=== PATIENT | male | born 1965 | race Caucasian/White ===

== ENCOUNTER → 2016-08-26 | Outpatient (CLI) | payer OTHER ==
--- NOTE | 2016-08-26 13:35 | CT ---
EXAMINATION TYPE: CT wrist RT wo con DATE OF EXAM: 08/26/2016 1:19 PM COMPARISON: NONE HISTORY: Rt wrist pain and fracture TECHNIQUE: Helical acquisition through the right wrist was performed. The data was reformatted in axi al, coronal and sagittal projections. Three-dimensional volume rendered imaging was also performed a CT scanner. CT DLP: 79.2 mGycm Automated exposure control for dose reduction was used. FINDINGS: There is mild pseudocystic change at the base of the first metacarpal. No definite Renal stone protocol performed the same yes There is a mild ulnar minus variant. The scapholunate distance is somewhat widened measuring 3.3 mm. No discrete fracture is seen. IMPRESSION: 1. NO DEFINITE ACUTE OSSEOUS LESION. 2. MILD DEGENERATIVE CHANGE. 3. MILD ULNAR MINUS VARIANT. 4. POSSIBLE RUPTURE OF THE SCAPHOLUNATE LIGAMENT. AN MRI OF THE WRIST WOULD BE SUGGESTED.
== END | disposition home or self-care (01) ==
LOC: RADCTMAIN 11:58
PROVIDERS: ATTEND Orthopaedic Surgery
DX: M19.031 Primary osteoarthritis, right wrist (principal)

== ENCOUNTER 2019-11-10 13:43 | Inpatient (IN) | payer OTHER ==
[2019-11-10] MEDS ORDERED: HEPARIN SODIUM,PORCINE 5,000 UNIT/ML 1 ML VIAL IV PRN (13:56)
[2019-11-10] MEDS ORDERED: IPRATROPIUM-ALBUTEROL 3 ML NEB INHALATION PRN (13:57)
[2019-11-10] MEDS ORDERED: HYDROmorphone 1 MG/ML 1 ML SYRINGE IVP STA (14:01)
--- NOTE | 2019-11-10 14:07 | ED ---
General Adult HPI - General Chief complaint: Shortness of Breath Stated complaint: copd renal failure Time Seen by Provider: 11/10/19 13:54 Source: patient, EMS, RN notes reviewed, old records reviewed Mode of arrival: EMS Limitations: physical limitation - History of Present Illness Initial comments: 54-year-old male presents as transfer from outside facility. Patient has history of CHF, COPD he is on 2 L of oxygen at home. He presented to the emergency department at an outside facility this morning with chief complaint of dyspnea. He states this has been ongoing for at least one month. His workup at that institution revealed that he was in acute renal failure and had an elevated d-dimer. Given the elevated d-dimer he was sent to this institution for evaluation by VQ scan and to see nephrology. Patient does report lower extremity edema which she states is chronic. Reports a mild cough. No fever. No central chest pain. - Related Data Allergies Allergy/AdvReac Type Severity Reaction Status Date / Time No Known Allergies Allergy Verified 11/10/19 13:55 Review of Systems ROS Statement: Those systems with pertinent positive or pertinent negative responses have been documented in the HPI. ROS Other: All systems not noted in ROS Statement are negative. Past Medical History Past Medical History: Heart Failure, COPD, Hypertension Additional Past Medical History / Comment(s): SHERIDAN, History of Any Multi-Drug Resistant Organisms: None Reported Additional Past Surgical History / Comment(s): left testicle growth removal, Past Psychological History: Anxiety Smoking Status: Former smoker Past Alcohol Use History: None Reported Past Drug Use History: None Reported General Exam Limitations: physical limitation General appearance: alert, in distress (Mild respiratory distress) Head exam: Present: atraumatic, normocephalic Eye exam: Present: normal appearance, PERRL ENT exam: Present: normal exam Neck exam: Present: normal inspection, full ROM Respiratory exam: Present: respiratory distress (mild ), wheezes, decreased breath sounds Cardiovascular Exam: Present: normal rhythm, tachycardia GI/Abdominal exam: Present: soft, distended. Absent: tenderness, guarding Extremities exam: Present: pedal edema (1+) Neurological exam: Present: alert, oriented X3 Psychiatric exam: Present: normal affect, normal mood Skin exam: Present: warm, dry, intact. Absent: cyanosis, diaphoretic Course Vital Signs 11/10/19 13:45 Pulse Rate 121 H Respiratory 24 Rate Blood Pressure 128/61 O2 Sat by Pulse 100 Oximetry Medical Decision Making - Medical Decision Making 54-year-old man transferred for VQ scan in evaluation of acute on chronic kidney injury. Patient's workup at outside facility included chest x-ray which was reported as negative without any acute cardiopulmonary abnormality. Patient had an nondetectable BNP. A venous pH is 7.3. He had normal electrolytes, sodium 139, potassium 5.1 magnesium 1.9. He had a creatinine of 3.8 with a reported baseline of 1.5. Patient's lactic acid was 1.5. Troponin was negative. He was initiated on heparin secondary to dyspnea with an elevated d-dimer of 0.7 to centimeters this institution for VQ scan. Additional laboratory studies were reviewed, right blood cell count was 11.6, hemoglobin 11.6, normal platelets at 258. Laboratory studies will be repeated in the emergency department. V/Q scan has been ordered. He will be continued on heparin. He will be admitted for treatment of dyspnea including COPD and rule out pulmonary embolism. Case is discussed with Dr. Kumar, he'll accept admission. Disposition Clinical Impression: Acute exacerbation of chronic obstructive pulmonary disease, SHERIDAN (acute kidney injury) Disposition: ADMITTED IP TO THIS HOSP Condition: Stable Is patient prescribed a controlled substance at d/c from ED?: No Referrals: Colton Garner MD [Primary Care Provider] - 1-2 days Decision to Admit Reason: Admit from EC Decision Date: 11/10/19 Decision Time: 14:07
[2019-11-10] MEDS: HEPARIN SOD,PORK IN 0.45% NACL 25,000 UNIT in 0.45% NACL 1 250ML.BAG IV SCH (14:11)
[2019-11-10 14:18] LABS: Basophils # (A) 0.1 k/uL (0-0.2); Basophils % (A) 1 %; Eosinophils # (A) 0.5 k/uL (0-0.7); Eosinophils % (A) 5 %; HCT 34.1 % (39.0-53.0); HGB 11.3 gm/dL (13.0-17.5); Lymphocytes # (A) 2.2 k/uL (1.0-4.8); Lymphocytes % (A) 24 %; MCHC 33.2 g/dL (31.0-37.0); MCV 99.5 fL (80.0-100.0); Mean Platelet Volume 7.1; Monocytes # (A) 0.6 k/uL (0-1.0); Monocytes % (A) 6 %; Neutrophils # (A) 5.6 k/uL (1.3-7.7); Neutrophils % (A) 60 %; Platelet Count 260 k/uL (150-450); RBC 3.42 m/uL (4.30-5.90); RDW 13.6 % (11.5-15.5); WBC 9.3 k/uL (3.8-10.6)
[2019-11-10 14:24] LABS: Albumin 3.6 g/dL (3.5-5.0); Calcium 8.4 mg/dL (8.4-10.2); Potassium 4.9 mmol/L (3.5-5.1); Total Bilirubin 0.6 mg/dL (0.2-1.3); Total Protein 6.1 g/dL (6.3-8.2)
[2019-11-10] MEDS: SODIUM CHLORIDE 0.9% 1,000 ML IV SCH (15:02)
[2019-11-10 15:33] LABS: C Reactive Protein 37.5 mg/L (<10.0)
[2019-11-10] MEDS: IPRATROPIUM-ALBUTEROL 3 ML NEB INHALATION SCH ×2 (16:46→20:23)
[2019-11-10 17:28] LABS: Glucose,Whole Blood 137 mg/dL (75-99)
--- NOTE | 2019-11-10 18:23 | US ---
EXAMINATION TYPE: US venous doppler duplex LE DATE OF EXAM: 11/10/2019 5:55 PM COMPARISON: NONE CLINICAL HISTORY: Rule out DVT. PE, SOB SIDE PERFORMED: Bilateral TECHNIQUE: The lower extremity deep venous system is examined utilizing real time linear array sonog jessy with graded compression, doppler sonography and color-flow sonography. VESSELS IMAGED: External Iliac Vein (EIV) Common Femoral Vein Deep Femoral Vein Greater Saphenous Vein * Femoral Vein Popliteal Vein Small Saphenous Vein * Proximal Calf Veins (* superficial vessels) Right Leg: No evidence of DVT Left Leg: No evidence of DVT IMPRESSION: 1. Bilateral lower extremity ultrasound negative for deep venous thrombosis.
[2019-11-10] MEDS: FAMOTIDINE 20 MG TAB PO SCH (18:34)
[2019-11-10] MEDS: ERYTHROMYCIN 5 MG/GM OPHTH OINT 3.5 GM TUBE BOTH EYES SCH ×2 (18:35→23:18)
[2019-11-10] MEDS: methylPREDNISolone SOD SUCCI 125 MG/2 ML VIAL IV SCH ×2 (18:35→23:18)
[2019-11-10 20:26] LABS: Glucose,Whole Blood 115 mg/dL (75-99)
[2019-11-10] MEDS: ALBUTEROL HFA INHALER INHALATION SCH (20:32)
--- NOTE | 2019-11-10 21:56 | P.HPIM ---
History of Present Illness This is a pleasant 54 years old male with past medical history of heart failure, COPD, hypertension status post left testicular removal. He presents because of dyspnea to [facility] but wasn't markedly hypoxic, also he has history of sleep apnea and is scheduled to undergo a sleep study, pt states he came to [facility] because he was dyspneic but could not say for how long. Patient denies coughing or phlegm, he denies chest pain, he felt anxious and took anxiety pill after that he vomited little amount after taking the pill, he quit smoking about one month and half ago he denies alcohol or illicit drugs he says he has history of memory problem for 4-5 years and he started recently following up with neurologist Dr. García Patient states she uses NSAIDs for chronic back pain and neck pain Patient is tachycardic with heart rate 117-121, saturating 99% on 2 L. He is afebrile [facility] his creatinine was 3.8 with baseline 1.5-1.9, d-dimer was elevated 0.7 with the reference up to 0.5, pH was slightly low at 7.3, normal lactic acid and mildly elevated doubly BC at 11, chest x-ray showed no infiltrate Repeat labs here showing WBC back to normal at 9.3, hemoglobin 11.3, sodium 137, creatinine 3.3, ALT 57 slightly elevated, AST is normal, bilirubin is normal, Arciniega virus not detected In the emergency room patient was started on normal saline at 50 mL/h, salmeterol 60 mg, heparin drip. Review of Systems CONSTITUTIONAL: No fever, no malaise, no fatigue. HEENT: No recent visual problems or hearing problems. Denied any sore throat. CARDIOVASCULAR: No orthopnea, PND, no palpitations, no syncope. PULMONARY: No shortness of breath, no cough, no hemoptysis. GASTROINTESTINAL: No diarrhea, no nausea, no vomiting, no abdominal pain. Normoactive bowel sounds. NEUROLOGICAL: No headaches, no weakness, no numbness. HEMATOLOGICAL: Denies any bleeding or petechiae. GENITOURINARY: Denies any burning micturition, frequency, or urgency. MUSCULOSKELETAL/RHEUMATOLOGICAL: Denies any joint pain, swelling, or any muscle pain. ENDOCRINE: Denies any polyuria or polydipsia. Past Medical History Past Medical History: Heart Failure, COPD, Hypertension Additional Past Medical History / Comment(s): SHERIDAN, History of Any Multi-Drug Resistant Organisms: None Reported Additional Past Surgical History / Comment(s): left testicle growth removal, Past Psychological History: Anxiety Smoking Status: Former smoker Past Alcohol Use History: None Reported Past Drug Use History: None Reported - Past Family History Father History Unknown: Yes Mother History Unknown: Yes Medications and Allergies Home Medications Medication Instructions Recorded Confirmed Type Albuterol Inhaler [Ventolin Hfa 2 puff INHALATION RT-QID PRN 11/10/19 11/10/19 History Inhaler] Albuterol Nebulized [Ventolin 1.25 mg INHALATION RT-QID 11/10/19 11/10/19 History Nebulized] Cetirizine HCl [Zyrtec] 10 mg PO DAILY 11/10/19 11/10/19 History Doxycycline Monohydrate [Monodox] 100 mg PO AC-BID@0900,1800 11/10/19 11/10/19 History Fluticasone Nasal [place] [Flonase 1 spray EA NOSTRIL DAILY 11/10/19 11/10/19 History Nasal [place]] Fluticasone/Salmeterol [Advair 2 puff INHALATION RT-DAILY 11/10/19 11/10/19 History 250-50 Diskus] Furosemide [Lasix] 40 mg PO DAILY 11/10/19 11/10/19 History HYDROcodone/APAP 7.5-325MG [[place] 1 tab PO QID 11/10/19 11/10/19 History 7.5-325] Ipratropium-Albuterol Nebulize 3 ml INHALATION RT-QID 11/10/19 11/10/19 History [Duoneb 0.5 mg-3 mg/3 ml Soln] Levothyroxine Sodium 88 mcg PO DAILY 11/10/19 11/10/19 History Lisinopril 20 mg PO DAILY 11/10/19 11/10/19 History Magnesium Oxide 400 mg PO DAILY 11/10/19 11/10/19 History Nicotine 7Mg/24Hr Patch [Habitrol 1 patch TRANSDERM DAILY@1700 11/10/19 11/10/19 History 7Mg/24Hr Patch] Pantoprazole [Protonix] 40 mg PO DAILY 11/10/19 11/10/19 History Potassium Chloride ER [K-Dur 10] 10 meq PO DAILY 11/10/19 11/10/19 History Spironolactone 50 mg PO DAILY 11/10/19 11/10/19 History Vitamin D3 50,000iu 50,000 unit PO FR 11/10/19 11/10/19 History clonazePAM [KlonoPIN] 1 mg PO BID 11/10/19 11/10/19 History traZODone HCL 50 mg PO HS 11/10/19 11/10/19 History Allergies Allergy/AdvReac Type Severity Reaction Status Date / Time No Known Allergies Allergy Verified 11/10/19 16:09 Physical Exam Vitals: Vital Signs Temp Pulse Resp BP Pulse Ox 11/10/19 14:56 121 H 22 108/63 99 11/10/19 13:45 98.9 F 121 H 24 128/61 100 Intake and Output 11/10/19 11/10/19 11/10/19 06:59 14:59 22:59 Output Total 150 Balance -150 Output: Urine 150 Other: Weight 113.398 kg -GENERAL: The patient is alert and oriented x3, not in mild acute respiratory distress. Well developed, well nourished. HEENT: Pupils are round and equally reacting to light. EOMI. No scleral icterus. No conjunctival pallor. Normocephalic, atraumatic. No pharyngeal erythema. No thyromegaly. CARDIOVASCULAR: S1 and S2 present. No murmurs, rubs, or gallops. -PULMONARY: Patient is tachypneic, Chest is clear to auscultation, mild scattered bilateral wheezing ABDOMEN: Soft, nontender, nondistended, normoactive bowel sounds. No palpable organomegaly. MUSCULOSKELETAL: No joint swelling or deformity. EXTREMITIES: No cyanosis, clubbing, or pedal edema. NEUROLOGICAL: Gross neurological examination did not reveal any focal deficits. SKIN: No rashes. No petechiae Results CBC & Chem 7: 11/10/19 14:01 11/10/19 14:01 Labs: Abnormal Lab Results - Last 24 Hours (Table) 11/10/19 11/10/19 Range/Units 14:01 14:01 RBC 3.42 L (4.30-5.90) m/uL Hgb 11.3 L (13.0-17.5) gm/dL Hct 34.1 L (39.0-53.0) % Chloride 108 H (98-107) mmol/L BUN 56 H (9-20) mg/dL Creatinine 3.36 H (0.66-1.25) mg/dL Glucose 103 H (74-99) mg/dL ALT 57 H (4-49) U/L Total Protein 6.1 L (6.3-8.2) g/dL Assessment and Plan Assessment: Acute dyspnea with elevated inflammatory markers LDH, C-reactive protein. Rule out covid-19 mild Acute COPD exacerbation, elevated d-dimer, rule out PE and DVT Acute kidney injury on chronic kidney disease Chronic kidney disease stage III Possible elements of sleep apnea, recommend sleep study as an outpatient Chronic back pain and neck pain Hypertension History of left testicular removal Plan: This is a pleasant 54 years old male who presents with COPD exacerbation, Coronavirus not detected. However elevated CRP and LDH make a still possibility, Rule out PE for elevated d-dimer, But could be also part of bilateral infection. And acute kidney injury. Continue with steroids, bronchodilator, oxygen as needed. Continue with heparin drip and check Doppler of the lower extremity and VQ scan. Pulmonary and nephrology consult. Continue with normal saline and check bladder scan Check check lactic acid, Procalcitonin. consult infectious disease. Labs and medication were reviewed.. Continue same treatment. Continue with symptomatic treatment. Resume home medication. Monitor lytes and vitals. DVT and GI prophylaxis. Further recommendations of the clinical course of the patient DVT prophylaxis: heparin GI Prophylaxis: Pepcid Prognosis is guarded
[2019-11-11] MEDS: ALBUTEROL HFA INHALER INHALATION PRN ×4 (01:07→23:16)
[2019-11-11 04:15] LABS: Appearance,Urine Clear (Clear); Bilirubin,Urine Negative (Negative); Blood,Urine Negative (Negative); Color,Urine Light Yellow; Glucose,Urine (UA) Negative (Negative); Ketones,Urine Negative (Negative); Leukocyte Esterase,Urine Negative (Negative); Nitrite,Urine Negative (Negative); PH, Urine 5.5 (5.0-8.0); Protein,Urine Negative (Negative); Specific Gravity,Urine 1.016 (1.001-1.035); Urobilinogen,Urine <2.0 mg/dL (<2.0)
[2019-11-11] MEDS: methylPREDNISolone SOD SUCCI 125 MG/2 ML VIAL IV SCH ×4 (05:15→22:47)
[2019-11-11] MEDS: HEPARIN SOD,PORK IN 0.45% NACL 25,000 UNIT in 0.45% NACL 1 250ML.BAG IV SCH (05:16)
[2019-11-11] MEDS: ERYTHROMYCIN 5 MG/GM OPHTH OINT 3.5 GM TUBE BOTH EYES SCH ×4 (05:16→22:48)
[2019-11-11 06:15] LABS: Glucose,Whole Blood 163 mg/dL (75-99)
[2019-11-11 06:26] LABS: Basophils % (A) 1 %; Eosinophils % (A) 0 %; HCT 36.6 % (39.0-53.0); HGB 12.1 gm/dL (13.0-17.5); Lymphocytes # (A) 0.9 k/uL (1.0-4.8); Lymphocytes % (A) 10 %; MCH 32.9 pg (25.0-35.0); MCHC 33.1 g/dL (31.0-37.0); MCV 99.6 fL (80.0-100.0); Mean Platelet Volume 7.4; Monocytes # (A) 0.2 k/uL (0-1.0); Monocytes % (A) 3 %; Neutrophils # (A) 7.6 k/uL (1.3-7.7); Neutrophils % (A) 86 %; Platelet Count 288 k/uL (150-450); RBC 3.67 m/uL (4.30-5.90); RDW 13.4 % (11.5-15.5); WBC 8.9 k/uL (3.8-10.6)
[2019-11-11] MEDS: TIOTROPIUM 18 MCG/PUFF INHALER INHALATION SCH (07:18)
[2019-11-11] MEDS: ALBUTEROL HFA INHALER INHALATION SCH ×3 (07:18→20:41)
[2019-11-11] MEDS: INSULIN ASPART (NovoLOG) 100 UNIT/ML VIAL SQ SCH ×4 (07:41→22:11)
[2019-11-11] MEDS: LEVOTHYROXINE 88 MCG TAB PO SCH (08:26)
[2019-11-11] MEDS: FAMOTIDINE 20 MG TAB PO SCH (08:26)
--- NOTE | 2019-11-11 08:40 | XR ---
EXAMINATION TYPE: XR chest 1V portable DATE OF EXAM: 11/11/2019 COMPARISON: 11/10/2019 HISTORY: Follow-up for pneumonia. TECHNIQUE: Single frontal view of the chest is obtained. FINDINGS: There is no focal air space opacity, pleural effusion, or pneumothorax seen. The cardiac silhouette size is upper limits of normal in size. Slight eventration of the right hemidiaphragm is u nchanged. The osseous structures are intact. IMPRESSION: No acute cardiopulmonary process.
--- NOTE | 2019-11-11 09:48 | NM ---
EXAMINATION TYPE: NM pul vent and perfuse DATE OF EXAM: 11/11/2019 COMPARISON: Chest x-ray of the same date HISTORY: Elevated d-dimer. Pneumonia. TECHNIQUE: Utilizing inhalation of 63.4 mCi Tc 99m DTPA aerosol and intravenous injection of 4.8 mCi of Tc 99m MAA, ventilation and perfusion images are acquired post injection in multiple projections. FINDINGS: There is relative hypoventilation hypoperfusion of the lung bases with large segmental matched defect s. Matched defect is also seen in the posterior right upper lobe and right lower lobe. There is great er perfusion and ventilation on the oblique images of the right lung. Matched defects of the left upp er lobe and left lower lobe are also seen at a relatively large. Central radiotracer clumping is seen on the ventilation portion of the examination. IMPRESSION: Intermediate probability for pulmonary embolism. Numerous matched defects throughout the lungs however no mismatch defect is seen. There is also central radiotracer clumping in the ventilati on portion of examination indicating a component of bronchial airway disease.
[2019-11-11 09:59] LABS: Calcium 9.4 mg/dL (8.4-10.2); Magnesium 2.3 mg/dL (1.6-2.3)
[2019-11-11 10:08] LABS: Potassium 6.2 mmol/L (3.5-5.1)
[2019-11-11] MEDS ORDERED: DEXTROSE 50% SYRINGE 50 ML IVP ONE (10:20)
[2019-11-11] MEDS ORDERED: INSULIN REGULAR 100 UNIT/ML VIAL IV ONE (10:20)
--- NOTE | 2019-11-11 10:29 | P.NPCON ---
History of Present Illness - Reason for Consult acute renal failure - History of Present Illness Reason for consultation: Acute kidney injury History of present illness: Patient is a 54-year-old male seen in renal consultation for acute kidney injury. Unknown as to what his baseline renal function is. Patient denies any personal history of kidney disease. Patient presented to [facility] shortness of breath and lower extremity edema. Patient states the edema is chronic in nature but is definitely worse than his baseline. He was taking Aldactone and lisinopril both of which are currently held. Additionally he was also on potassium supplementation. No history of diabetes. He has been voiding. No hematuria or dysuria. No vomiting or diarrhea. No significant acidosis. Creatinine was 3.3 on admission and is down to 2.0 today. He is currently receiving IV fluids to normal saline running at 40 mL an hour. He is currently maintained on heparin drip. He went for a VQ scan this morning. No evidence of DVT. Denies family history of renal disease. No fever. Does admit to a nonproductive cough. Vital signs are stable. General: The patient appeared well nourished and normally developed. HEENT: Head exam is unremarkable. Neck is without jugular venous distension. LUNGS: Lungs are clear to auscultation and percussion. Breath sounds decreased. HEART: Rate and Rhythm are regular. ABDOMEN: No distention noted. EXTREMITITES: 2+ edema. Past Medical History Past Medical History: Heart Failure, COPD, Hypertension Additional Past Medical History / Comment(s): SHERIDAN, History of Any Multi-Drug Resistant Organisms: None Reported Additional Past Surgical History / Comment(s): left testicle growth removal, Past Psychological History: Anxiety Smoking Status: Former smoker Past Alcohol Use History: None Reported Past Drug Use History: None Reported - Past Family History Father History Unknown: Yes Mother History Unknown: Yes Medications and Allergies Home Medications Medication Instructions Recorded Confirmed Type Albuterol Inhaler [Ventolin Hfa 2 puff INHALATION RT-QID PRN 11/10/19 11/10/19 History Inhaler] Albuterol Nebulized [Ventolin 1.25 mg INHALATION RT-QID 11/10/19 11/10/19 History Nebulized] Cetirizine HCl [Zyrtec] 10 mg PO DAILY 11/10/19 11/10/19 History Doxycycline Monohydrate [Monodox] 100 mg PO AC-BID@0900,1800 11/10/19 11/10/19 History Fluticasone Nasal [place] [Flonase 1 spray EA NOSTRIL DAILY 11/10/19 11/10/19 History Nasal [place]] Fluticasone/Salmeterol [Advair 2 puff INHALATION RT-DAILY 11/10/19 11/10/19 History 250-50 Diskus] Furosemide [Lasix] 40 mg PO DAILY 11/10/19 11/10/19 History HYDROcodone/APAP 7.5-325MG [[place] 1 tab PO QID 11/10/19 11/10/19 History 7.5-325] Ipratropium-Albuterol Nebulize 3 ml INHALATION RT-QID 11/10/19 11/10/19 History [Duoneb 0.5 mg-3 mg/3 ml Soln] Levothyroxine Sodium 88 mcg PO DAILY 11/10/19 11/10/19 History Lisinopril 20 mg PO DAILY 11/10/19 11/10/19 History Magnesium Oxide 400 mg PO DAILY 11/10/19 11/10/19 History Nicotine 7Mg/24Hr Patch [Habitrol 1 patch TRANSDERM DAILY@1700 11/10/19 11/10/19 History 7Mg/24Hr Patch] Pantoprazole [Protonix] 40 mg PO DAILY 11/10/19 11/10/19 History Potassium Chloride ER [K-Dur 10] 10 meq PO DAILY 11/10/19 11/10/19 History Spironolactone 50 mg PO DAILY 11/10/19 11/10/19 History Vitamin D3 50,000iu 50,000 unit PO FR 11/10/19 11/10/19 History clonazePAM [KlonoPIN] 1 mg PO BID 11/10/19 11/10/19 History traZODone HCL 50 mg PO HS 11/10/19 11/10/19 History Allergies Allergy/AdvReac Type Severity Reaction Status Date / Time No Known Allergies Allergy Verified 11/10/19 16:09 Physical Exam Vitals: Vital Signs Temp Pulse Pulse Resp BP BP Pulse Ox 11/11/19 08:00 98.1 F 118 H 18 134/78 97 11/11/19 04:00 98 F 113 H 22 127/84 98 11/10/19 23:41 98.6 F 113 H 21 134/85 95 11/10/19 20:00 98.8 F 118 H 21 112/70 99 11/10/19 16:46 118 H 98 11/10/19 15:50 98.5 F 120 H 26 H 107/56 97 11/10/19 15:06 117 H 20 11/10/19 14:56 121 H 22 108/63 99 11/10/19 13:45 98.9 F 121 H 24 128/61 100 Intake and Output 11/10/19 11/11/19 11/11/19 22:59 06:59 14:59 Intake Total 330.493 171.064 Output Total 400 825 Balance -69.507 -653.936 Intake: Intake, IV Titration 90.493 171.064 Amount Heparin Sod,Pork in 0.45% 90.493 171.064 NaCl 25,000 unit In 0.45 % NaCl 1 250ml.bag @ 18 UNITS/KG/HR 20.412 mls/hr IV .[id number] [facility] Rx#: [id number] Oral 240 Output: Urine 400 825 Other: Voiding Method Urinal Urinal Weight 111.7 kg 112.5 kg Results - Lab Results Most recent lab results Calcium 9.4 mg/dL (8.4-10.2) 11/11/19 05:40 Magnesium 2.3 mg/dL (1.6-2.3) 11/11/19 05:40 11/11/19 05:40 11/11/19 05:40 Assessment and Plan Plan: Assessment: 1. Acute kidney injury mostly prerenal improving with IV hydration. Creatinine was 3.36 on admission and is 2.0 today. UA benign. 2. Hyperkalemia secondary to acute kidney injury and further worsened with the use of potassium supplementation, lisinopril and Aldactone. 3. Volume overload. Plan: Start Lasix 40 mg IV twice daily. Check bladder scan to rule out urinary retention. Check renal ultrasound. 10 units of IV insulin with an amp of D50 now. Repeat potassium level in 3-4 hours. Continue to monitor renal function and urine output. Thank you for the consultation. I will continue to follow the patient with you during his hospital stay
[2019-11-11] MEDS ORDERED: IPRATROPIUM-ALBUTEROL 3 ML NEB INHALATION PRN (10:55)
[2019-11-11] MEDS ORDERED: DOXYCYCLINE 100 MG CAP PO SCH (11:00)
--- NOTE | 2019-11-11 11:53 | P.CNPUL ---
History of Present Illness Consult date: 11/11/19 Requesting physician: Guanako Kumar Reason for consult: dyspnea Chief complaint: Shortness of breath, cough, congestion History of present illness: This is a very pleasant 54-year-old gentleman who follows with Isabella velazquez PCP. He resides in the [place] area. He has a history of anxiety, hypertension, hypothyroidism, chronic pain syndrome, irritable bowel syndrome, obesity. He also has a history of chronic tobacco dependence and chronic obstructive pulmonary disease and was seen in August [address] Shields at the [place] [facility]. He has an FEV1 value 40% of predicted. He presented here to the hospital yesterday as a transfer from [facility] with complai nts of worsening shortness of breath. He is also found to have acute renal failure. He had elevated d-dimer. VQ scan done here revealed in determinant findings. He does have some chronic lower extremity edema. Dopplers were negative for DVT. Chest x-ray revealed no acute pulmonary process. He is seen today in consultation on the selective care unit. He is currently awake and alert in no acute distress. He states he quit smoking on September 14 of this year. He does have a nebulizer at home. He is also maintained on Advair. Presently he sitting up in bed. Awake and alert in no acute distress. He is maintaining O2 saturations in the upper 90s on 3 L/m per nasal cannula. He is afebrile. Slightly tachycardic. Currently on a heparin drip. White count 8.9. Hemoglobin 12.1. Sodium 138. Potassium 6.2. Chloride 109. Creatinine 2.00. Urinalysis clear. He is currently on bronchodilators, Solu-Medrol. Review of Systems REVIEW OF SYSTEMS: CONSTITUTIONAL: Denies any recent significant weight loss or weight gain. EYES: Denies change in vision. EARS, NOSE, MOUTH, THROAT: Denies headaches, denies sore throat. CARDIOVASCULAR: Denies chest pain, palpitations or syncopal episodes. RESPIRATORY: Positive for shortness of breath, cough, congestion no hemoptysis. GASTROINTESTINAL: Denies change in appetite, denies abdominal pain GENITOURINARY: Denies hematuria, denies infections. MUSKULOSKELETAL: Denies pain, denies swelling. INTEGUMENTARY: Denies rash, denies eczema. NEUROLOGICAL: Denies recent memory loss, no recent seizure activity. PSYCHIATRIC: Denies anxiety, denies depression. HEMATOLOGIC/LYMPHATIC: Denies anemia, denies enlarged lymph nodes. Past Medical History Past Medical History: Heart Failure, COPD, Hypertension Additional Past Medical History / Comment(s): SHERIDAN, History of Any Multi-Drug Resistant Organisms: None Reported Additional Past Surgical History / Comment(s): left testicle growth removal, Past Psychological History: Anxiety Smoking Status: Former smoker Past Alcohol Use History: None Reported Past Drug Use History: None Reported - Past Family History Father History Unknown: Yes Mother History Unknown: Yes Medications and Allergies Home Medications Medication Instructions Recorded Confirmed Type Albuterol Inhaler [Ventolin Hfa 2 puff INHALATION RT-QID PRN 11/10/19 11/10/19 History Inhaler] Albuterol Nebulized [Ventolin 1.25 mg INHALATION RT-QID 11/10/19 11/10/19 History Nebulized] Cetirizine HCl [Zyrtec] 10 mg PO DAILY 11/10/19 11/10/19 History Doxycycline Monohydrate [Monodox] 100 mg PO AC-BID@0900,1800 11/10/19 11/10/19 History Fluticasone Nasal [place] [Flonase 1 spray EA NOSTRIL DAILY 11/10/19 11/10/19 History Nasal [place]] Fluticasone/Salmeterol [Advair 2 puff INHALATION RT-DAILY 11/10/19 11/10/19 History 250-50 Diskus] Furosemide [Lasix] 40 mg PO DAILY 11/10/19 11/10/19 History HYDROcodone/APAP 7.5-325MG [[place] 1 tab PO QID 11/10/19 11/10/19 History 7.5-325] Ipratropium-Albuterol Nebulize 3 ml INHALATION RT-QID 11/10/19 11/10/19 History [Duoneb 0.5 mg-3 mg/3 ml Soln] Levothyroxine Sodium 88 mcg PO DAILY 11/10/19 11/10/19 History Lisinopril 20 mg PO DAILY 11/10/19 11/10/19 History Magnesium Oxide 400 mg PO DAILY 11/10/19 11/10/19 History Nicotine 7Mg/24Hr Patch [Habitrol 1 patch TRANSDERM DAILY@1700 11/10/19 11/10/19 History 7Mg/24Hr Patch] Pantoprazole [Protonix] 40 mg PO DAILY 11/10/19 11/10/19 History Potassium Chloride ER [K-Dur 10] 10 meq PO DAILY 11/10/19 11/10/19 History Spironolactone 50 mg PO DAILY 11/10/19 11/10/19 History Vitamin D3 50,000iu 50,000 unit PO FR 11/10/19 11/10/19 History clonazePAM [KlonoPIN] 1 mg PO BID 11/10/19 11/10/19 History traZODone HCL 50 mg PO HS 11/10/19 11/10/19 History Allergies Allergy/AdvReac Type Severity Reaction Status Date / Time No Known Allergies Allergy Verified 11/10/19 16:09 Physical Exam Vitals: Vital Signs Temp Pulse Pulse Resp BP BP Pulse Ox 11/11/19 08:00 98.1 F 118 H 18 134/78 97 11/11/19 04:00 98 F 113 H 22 127/84 98 11/10/19 23:41 98.6 F 113 H 21 134/85 95 11/10/19 20:00 98.8 F 118 H 21 112/70 99 11/10/19 16:46 118 H 98 11/10/19 15:50 98.5 F 120 H 26 H 107/56 97 11/10/19 15:06 117 H 20 11/10/19 14:56 121 H 22 108/63 99 11/10/19 13:45 98.9 F 121 H 24 128/61 100 Intake and Output 11/10/19 11/11/19 11/11/19 22:59 06:59 14:59 Intake Total 330.493 171.064 Output Total 400 825 67 Balance -69.507 -653.936 -67 Intake: Intake, IV Titration 90.493 171.064 Amount Heparin Sod,Pork in 0.45% 90.493 171.064 NaCl 25,000 unit In 0.45 % NaCl 1 250ml.bag @ 18 UNITS/KG/HR 20.412 mls/hr IV .[id number] [facility] Rx#: [id number] Oral 240 Output: Urine 400 825 Post Void Residual 67 Other: Voiding Method Urinal Urinal Weight 111.7 kg 112.5 kg GENERAL EXAM: Alert, pleasant 54-year-old gentleman, on 3 L nasal cannula, comfortable in no apparent distress. HEAD: Normocephalic. EYES: Normal reaction of pupils, equal size. NOSE: Clear with pink turbinates. THROAT: No erythema or exudates. NECK: No masses, no JVD. CHEST: No chest wall deformity. LUNGS: Equal air entry with bilateral end expiratory wheeze, diminished. CVS: S1 and S2 normal with no audible murmur, regular rhythm. ABDOMEN: No hepatosplenomegaly, normal bowel sounds, no guarding or rigidity. SPINE: No scoliosis or deformity SKIN: No rashes CENTRAL NERVOUS SYSTEM: No focal deficits, tone is normal in all 4 extremities. EXTREMITIES: There is 1+ peripheral edema. No clubbing, no cyanosis. Peripheral pulses are intact. Results - Laboratory Findings CBC and BMP: 11/11/19 05:40 11/11/19 05:40 Abnormal lab findings: Abnormal Labs 11/10/19 11/10/19 11/10/19 14:01 14:01 14:01 RBC 3.42 L Hgb 11.3 L Hct 34.1 L Lymphocytes # APTT Potassium Chloride 108 H BUN 56 H Creatinine 3.36 H Glucose 103 H POC Glucose (mg/dL) Plasma Lactic Acid [place] ALT 57 H Lactate Dehydrogenase 1020 H C-Reactive Protein 37.5 H Total Protein 6.1 L 11/10/19 11/10/19 11/10/19 15:50 15:50 17:26 RBC Hgb Hct Lymphocytes # APTT 168.2 H* Potassium Chloride BUN Creatinine Glucose POC Glucose (mg/dL) 137 H Plasma Lactic Acid [place] 2.2 H* ALT Lactate Dehydrogenase C-Reactive Protein Total Protein 11/10/19 11/10/19 11/11/19 20:24 23:16 05:40 RBC 3.67 L Hgb 12.1 L Hct 36.6 L Lymphocytes # 0.9 L APTT 107.8 H* Potassium Chloride BUN Creatinine Glucose POC Glucose (mg/dL) 115 H Plasma Lactic Acid [place] ALT Lactate Dehydrogenase C-Reactive Protein Total Protein 11/11/19 11/11/19 11/11/19 05:40 05:40 06:13 RBC Hgb Hct Lymphocytes # APTT 103.4 H* Potassium 6.2 H* Chloride 109 H BUN 53 H Creatinine 2.00 H Glucose 162 H POC Glucose (mg/dL) 163 H Plasma Lactic Acid [place] ALT Lactate Dehydrogenase C-Reactive Protein Total Protein - Diagnostic Findings Chest x-ray: image reviewed U/S of Legs: image reviewed Assessment and Plan Assessment: 1 Acute hypoxic respiratory failure secondary to an acute exacerbation of chronic obstructive pulmonary disease. FEV1 value 40% of predicted 2 Chronic tobacco dependence recently quit in September 2019. 3 Acute renal failure, suspect prerenal improving with IV hydration 4 Hyperkalemia secondary to above along with potassium sparing diuretics and javier inhibitors 5 Obesity 6 Hypothyroidism 7 History of irritable bowel syndrome 8 History of anxiety/depression 9 Hypertension Plan: The patient was seen and evaluated by Dr. Shields Doubt pulmonary embolism, discontinue IV heparin Initiate Symbicort, Spiriva, albuterol Continue IV Solu-Medrol IV diuretics per nephrology Empiric antibiotics in the form of doxycycline Heparin for DVT prophylaxis Pepcid for GI prophylaxis Titrate down the FiO2 as tolerated Increase his activity as tolerated We will continue to follow and make further recommendations based on his clinical status. I, the cosigning physician, performed a history & physical examination of the patient. Lungs sounds with end expiratory wheeze, diminished. Maintaining good O2 saturations in the 90s on 3 L/m per nasal cannula. I discussed the assessment and plan of care with my nurse practitioner, Марина Biggs. I attest to the above note as dictated by her. Time with Patient: Greater than 30
[2019-11-11 12:03] LABS: Glucose,Whole Blood 157 mg/dL (75-99)
[2019-11-11] MEDS: FUROSEMIDE 10 MG/ML 4 ML VIAL IV SCH ×2 (12:22→19:57)
[2019-11-11] MEDS: SODIUM CHLORIDE 0.9% 1,000 ML IV SCH (12:36)
[2019-11-11] MEDS: PANTOPRAZOLE 40 MG TABLET PO SCH (12:39)
[2019-11-11] MEDS: FLUTICASONE 50MCG/SPRAY NASAL 16GM EA NOSTRIL SCH (12:39)
[2019-11-11] MEDS ORDERED: IPRATROPIUM-ALBUTEROL 3 ML NEB INHALATION SCH (13:00)
[2019-11-11] MEDS: HYDROcodone/APAP 7.5-325MG 1 EACH TAB PO SCH ×3 (15:28→22:46)
--- NOTE | 2019-11-11 15:44 | PN ---
PROGRESS NOTE DATE OF SERVICE: 11/11/2019 This is a 54-year-old gentleman who was admitted with COPD acute exacerbation, acute hypoxic respiratory failure, also had possible acute purulent tracheobronchitis also. The COVID is suspected but is negative. The V/Q scan showed indeterminate possibly with multiple matching defects. The venous Doppler was found to be negative and the patient was started on heparin initially but stopped per Pulmonary recommendations. Patient will be closely monitored. Patient also has hyperkalemia, as well as acute renal failure also. PAST MEDICAL HISTORY: Reviewed. REVIEW OF SYSTEMS: CARDIOVASCULAR: No angina. RESPIRATION: Patient is short of breath. GI: As mentioned earler. : As mentioned earlier. NERVOUS SYSTEM: No numbness or weakness.. CURRENT MEDICATIONS: Reviewed and include: 1. [place] 7.5 q.i.d. p.r.n. 2. Ventolin 2.2 puffs q.i.d. p.r.n. 3. Symbicort 12.5 two puffs b.i.d. 4. Klonopin 1 mg b.i.d. 5. Doxycycline. 6. Erythromycin ointment. 7. Pepcid. 8. Flonase. 9. Lasix 40 mg IV b.i.d. 10.NovoLog scale. 11.Synthroid 18 mcg p.o. daily. 12.Claritin 10 mg p.o. daily. 13.Magnesium oxide. 14.Solu-Medrol 60 IV q.6 h. 15.Habitrol 7 daily. 16.Protonix 40 mg daily. 17.Spiriva 1 puff daily. 18.Desyrel 50 mg q.h.s. PHYSICAL EXAM: Patient is alert, oriented x3. Pulse is 125, blood pressure 142/85, respirations 16, temperature 98.1, pulse ox 98% on 3 L. HEENT: Conjunctivae normal, NECK: No jugular venous distension. RESPIRATION: Breath sounds diminished at the bases, a few scattered rhonchi, no crackles. ABDOMEN: Soft, nontender. No mass palpable. LEGS: No edema, no cyanosis. NERVOUS SYSTEM: No focal deficits. LABS: WBC 8.2, hemoglobin is 12.1, and APTT 103.4, potassium 6.2, creatinine is 2. Chest x- ray personally reviewed. ASSESSMENT: 1. Chronic obstructive pulmonary disease acute exacerbation with acute purulent tracheobronchitis. 2. Bronchitis with acute hypoxic respiratory failure. 3. Suspect COVID-19 test negative. 4. History of nicotine dependence. 5. Acute renal failure. 6. Hyperkalemia, secondary to acute renal failure. 7. Anemia of normocytic anemia, chronic disease. 8. History of congestive heart failure. 9. Hypertension. 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 11.History of left testicular growth removal. 12.History of anxiety. 13.Remote history of nicotine dependence. 14.Obesity with body mass index 38.8. RECOMMENDATION: This is a 54-year-old gentleman who presented with multiple complex medical issues, we will monitor the patient closely, continue with the current management and continue the bronchodilators, antibiotics. I would continue IV steroids otherwise I would also recommend a CT scan of the chest and continue to monitor. I would also recommend baseline testing for D-dimer and a 2D echo. I would also recommend a set of troponin as well. Prognosis guarded because of multiple complex medical issues. Further recommendations to follow. NT proBNP is only 64. LDH and CRP are elevated. MMODL / IJN: [id number] /
--- NOTE | 2019-11-11 16:08 | US ---
EXAMINATION TYPE: US kidneys/renal and bladder DATE OF EXAM: 11/11/2019 COMPARISON: NONE CLINICAL HISTORY: 54 year-old male acute kidney injury. TECHNIQUE: MULTIPLE SONOGRAPHIC IMAGES OF THE KIDNEYS AND BLADDER ARE OBTAINED. FINDINGS: Seismic Survey Assistant notes: Exam limitations due to body habitus. EXAM MEASUREMENTS: Right Kidney: 9.3 x 5.2 x 5.0 cm Left Kidney: 9.6 x 5.5 x 3.7 cm No hydronephrosis on either side. Bladder: Anechoic Bilateral Jets seen: No IMPRESSION: No hydronephrosis.
[2019-11-11 16:47] LABS: Glucose,Whole Blood 164 mg/dL (75-99)
[2019-11-11] MEDS ORDERED: NICOTINE 7MG/24HR PATCH TRANSDERM SCH (17:00)
--- NOTE | 2019-11-11 17:31 | CT ---
EXAMINATION TYPE: CT chest wo con DATE OF EXAM: 11/11/2019 COMPARISON: Radiograph 11/11/2019 HISTORY: 54-year-old male Pneumonia. Difficulty breathing. TECHNIQUE: Contiguous axial scanning of the chest without IV contrast. Coronal and sagittal reconstru ctions performed. CT DLP: 631 mGycm Automated exposure control for dose reduction was used. FINDINGS: The heart is normal size without pericardial effusion. 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 No thoracic lymphadenopathy by CT size criteria. Mild to moderate centrilobular emphysema. Mild diffuse bronchial wall thickening. Mild respiratory mo tion artifact. This limits assessment for small pulmonary nodules. 5 mm right mid lung pulmonary nodule, axial image 32. No consolidation or pleural effusion. Visualized upper abdomen shows no gross abnormality. Bones: No osseous destructive process. IMPRESSION: 1. COPD WITH MILD TO MODERATE EMPHYSEMA. 2. A 5 MM RIGHT MID LUNG PULMONARY NODULE. [address] FOLLOW-UP CT RECOMMENDED TO REASSESS PER THE 2017 [employer] GUIDELINES. 3. OTHERWISE, NO ACUTE PULMONARY PROCESS SEEN.
[2019-11-11] MEDS: clonazePAM 1 MG TAB PO SCH (19:56)
[2019-11-11] MEDS: traZODone HCL 50 MG TAB PO SCH (19:57)
[2019-11-11 20:27] LABS: Glucose,Whole Blood 146 mg/dL (75-99)
[2019-11-11] MEDS: SYMBICORT 160-4.5 MCG INHALER INHALATION SCH (20:41)
--- NOTE | 2019-11-11 22:28 | P.CONS ---
History of Present Illness - Reason for Consult Consult date: 11/11/19 infection Requesting physician: Guanako E Sheet - Chief Complaint shortness of breath x weeks - History of Present Illness Patient is a 54-year male with a past medical history pertinent for hypertension hypothyroidism chronic pain syndrome history of for smoking since the age of 12 who recently quit smoking on September 14 seemed having problem with increasing shortness of breath that has been getting worse over the last month or so patient said he has been seen at the local hospital multiple times for the same symptoms he presented to [place] with increasing shortness of breath patient has shortness of breath with minimal exertion and even at rest patient denies having any chest pain he did have very minimal cough with no sputum production no URI symptoms except some runny nose denies high-grade fever nausea no vomiting no abdominal pain or diarrhea patient was evaluated at the [facility] subsequent has been transferred to [facility] for further management patient on arrival to the hospital has been afebrile patient did have a normal white count noticed to have acute renal failure with a creatinine 3.36 urine was negative: PCR was negative patient did have elevated CRP of 37.5 LDH was 1020 procalcitonin 0.26 with appropriate this infectious disease consultation consult for possible infection and need for antibiotic therapy patient has been started on Rocephin Solu-Medrol and bronchodilator. Review of Systems Positive point has been mentioned in HPI rest of the systems are negative Past Medical History Past Medical History: Heart Failure, COPD, Hypertension Additional Past Medical History / Comment(s): SHERIDAN, History of Any Multi-Drug Resistant Organisms: None Reported Additional Past Surgical History / Comment(s): left testicle growth removal, Past Psychological History: Anxiety Smoking Status: Former smoker Past Alcohol Use History: None Reported Past Drug Use History: None Reported - Past Family History Father History Unknown: Yes Mother History Unknown: Yes Medications and Allergies Home Medications Medication Instructions Recorded Confirmed Type Albuterol Inhaler [Ventolin Hfa 2 puff INHALATION RT-QID PRN 11/10/19 11/10/19 History Inhaler] Albuterol Nebulized [Ventolin 1.25 mg INHALATION RT-QID 11/10/19 11/10/19 History Nebulized] Cetirizine HCl [Zyrtec] 10 mg PO DAILY 11/10/19 11/10/19 History Doxycycline Monohydrate [Monodox] 100 mg PO AC-BID@0900,1800 11/10/19 11/10/19 History Fluticasone Nasal [place] [Flonase 1 spray EA NOSTRIL DAILY 11/10/19 11/10/19 History Nasal [place]] Fluticasone/Salmeterol [Advair 2 puff INHALATION RT-DAILY 11/10/19 11/10/19 History 250-50 Diskus] Furosemide [Lasix] 40 mg PO DAILY 11/10/19 11/10/19 History HYDROcodone/APAP 7.5-325MG [[place] 1 tab PO QID 11/10/19 11/10/19 History 7.5-325] Ipratropium-Albuterol Nebulize 3 ml INHALATION RT-QID 11/10/19 11/10/19 History [Duoneb 0.5 mg-3 mg/3 ml Soln] Levothyroxine Sodium 88 mcg PO DAILY 11/10/19 11/10/19 History Lisinopril 20 mg PO DAILY 11/10/19 11/10/19 History Magnesium Oxide 400 mg PO DAILY 11/10/19 11/10/19 History Nicotine 7Mg/24Hr Patch [Habitrol 1 patch TRANSDERM DAILY@1700 11/10/19 11/10/19 History 7Mg/24Hr Patch] Pantoprazole [Protonix] 40 mg PO DAILY 11/10/19 11/10/19 History Potassium Chloride ER [K-Dur 10] 10 meq PO DAILY 11/10/19 11/10/19 History Spironolactone 50 mg PO DAILY 11/10/19 11/10/19 History Vitamin D3 50,000iu 50,000 unit PO FR 11/10/19 11/10/19 History clonazePAM [KlonoPIN] 1 mg PO BID 11/10/19 11/10/19 History traZODone HCL 50 mg PO HS 11/10/19 11/10/19 History Allergies Allergy/AdvReac Type Severity Reaction Status Date / Time No Known Allergies Allergy Verified 11/10/19 16:09 Physical Exam Vitals: Vital Signs Temp Pulse Pulse Resp BP Pulse Ox 11/11/19 16:00 131 H 24 11/11/19 15:31 98.1 F 131 H 24 122/80 97 11/11/19 12:00 98.1 F 125 H 16 142/85 98 04/27/20 08:00 98.1 F 118 H 18 134/78 97 11/11/19 04:00 98 F 113 H 22 127/84 98 11/10/19 23:41 98.6 F 113 H 21 134/85 95 11/10/19 20:00 98.8 F 118 H 21 112/70 99 11/10/19 16:46 118 H 98 Intake and Output 11/11/19 11/11/19 11/11/19 06:59 14:59 22:59 Intake Total 171.064 Output Total 825 392 900 Balance -653.936 392 900 Intake: Intake, IV Titration 171.064 Amount Heparin Sod,Pork in 0.45% 171.064 NaCl 25,000 unit In 0.45 % NaCl 1 250ml.bag @ 18 UNITS/KG/HR 20.412 mls/hr IV .[id number] [facility] Rx#: [id number] Output: Urine 825 325 900 Post Void Residual 67 Other: Voiding Method Urinal # Voids 3 Weight 112.5 kg GENERAL DESCRIPTION: Middle-aged male lying in bed, no distress. No tachypnea or accessory muscle of respiration use. HEENT: Shows Pallor , no scleral icterus. Oral mucous membrane is dry. NECK: Trachea central, no thyromegaly. LUNGS: Unlabored breathing. Decreased intensity breath sound. No wheeze or crackle. HEART: S1, S2, regular rate and rhythm. ABDOMEN: Soft, no tenderness , guarding or rigidity EXTREMITIES: No edema of feet. SKIN: No rash, no masses palpable. NEUROLOGICAL: The patient is awake, alert, oriented x3, mood and affect normal. Results CBC & Chem 7: 11/11/19 05:40 11/11/19 14:59 Labs: Abnormal Lab Results - Last 24 Hours (Table) 11/10/19 11/10/19 11/10/19 Range/Units 14:01 14:01 17:26 RBC (4.30-5.90) m/uL Hgb (13.0-17.5) gm/dL Hct (39.0-53.0) % Lymphocytes # (1.0-4.8) k/uL APTT (22.0-30.0) sec Potassium (3.5-5.1) mmol/L Chloride (98-107) mmol/L BUN (9-20) mg/dL Creatinine (0.66-1.25) mg/dL Glucose (74-99) mg/dL POC Glucose (mg/dL) 137 H (75-99) mg/dL Ferritin 796.0 H (22.0-322.0) ng/mL Procalcitonin 0.26 H (0.02-0.09) ng/mL 11/10/19 11/10/19 11/11/19 Range/Units 20:24 23:16 05:40 RBC 3.67 L (4.30-5.90) m/uL Hgb 12.1 L (13.0-17.5) gm/dL Hct 36.6 L (39.0-53.0) % Lymphocytes # 0.9 L (1.0-4.8) k/uL APTT 107.8 H* (22.0-30.0) sec Potassium (3.5-5.1) mmol/L Chloride (98-107) mmol/L BUN (9-20) mg/dL Creatinine (0.66-1.25) mg/dL Glucose (74-99) mg/dL POC Glucose (mg/dL) 115 H (75-99) mg/dL Ferritin (22.0-322.0) ng/mL Procalcitonin (0.02-0.09) ng/mL 11/11/19 11/11/19 11/11/19 Range/Units 05:40 05:40 06:13 RBC (4.30-5.90) m/uL Hgb (13.0-17.5) gm/dL Hct (39.0-53.0) % Lymphocytes # (1.0-4.8) k/uL APTT 103.4 H* (22.0-30.0) sec Potassium 6.2 H* (3.5-5.1) mmol/L Chloride 109 H (98-107) mmol/L BUN 53 H (9-20) mg/dL Creatinine 2.00 H (0.66-1.25) mg/dL Glucose 162 H (74-99) mg/dL POC Glucose (mg/dL) 163 H (75-99) mg/dL Ferritin (22.0-322.0) ng/mL Procalcitonin (0.02-0.09) ng/mL 11/11/19 11/11/19 Range/Units 12:02 14:59 RBC (4.30-5.90) m/uL Hgb (13.0-17.5) gm/dL Hct (39.0-53.0) % Lymphocytes # (1.0-4.8) k/uL APTT (22.0-30.0) sec Potassium 5.2 H (3.5-5.1) mmol/L Chloride (98-107) mmol/L BUN (9-20) mg/dL Creatinine (0.66-1.25) mg/dL Glucose (74-99) mg/dL POC Glucose (mg/dL) 157 H (75-99) mg/dL Ferritin (22.0-322.0) ng/mL Procalcitonin (0.02-0.09) ng/mL Assessment and Plan Assessment: Patient presented to hospital with increasing shortness of breath, he also have a cough, and this patient chest x-ray has been negative for acute cardiopulmonary process VQ scan has been intermediate probability of pulmonary embolism lower extremity Doppler has been negative patient did have mild elevated inflammatory markers however no clinical suspicious for pneumonia could have been more likely COPD exacerbation with tracheobronchitis in this patient currently with no evidence of any cellulitis or abdominal focus of infection. (1) Tracheobronchitis Current Visit: Yes Status: Acute Code(s): J40 - BRONCHITIS, NOT SPECIFIED ACUTE OR CHRONIC SNOMED Code(s): 13892774 (2) Elevated C-reactive protein (CRP) Current Visit: Yes Status: Acute Code(s): R79.82 - ELEVATED C-REACTIVE PROTEIN (CRP) SNOMED Code(s): 159091180324203 Plan: 1-we will try to obtain a sputum for Gram stain and culture, blood culture has been obtained those will be followed 2-continue with empiric Rocephin and bronchodilator therapy We will follow on clinical condition and cultures to further adjust medication if needed Thank you for this consultation we will follow the patient along with you Time with Patient: Greater than 30
[2019-11-12] MEDS: ALBUTEROL HFA INHALER INHALATION PRN (03:45)
[2019-11-12 06:10] LABS: Basophils % (A) 0 %; Eosinophils % (A) 0 %; HCT 34.5 % (39.0-53.0); HGB 11.6 gm/dL (13.0-17.5); Lymphocytes # (A) 0.8 k/uL (1.0-4.8); Lymphocytes % (A) 5 %; MCH 33.1 pg (25.0-35.0); MCHC 33.5 g/dL (31.0-37.0); MCV 98.6 fL (80.0-100.0); Mean Platelet Volume 7.1; Monocytes # (A) 0.5 k/uL (0-1.0); Monocytes % (A) 3 %; Neutrophils # (A) 13.8 k/uL (1.3-7.7); Neutrophils % (A) 90 %; Platelet Count 297 k/uL (150-450); RDW 13.5 % (11.5-15.5); WBC 15.3 k/uL (3.8-10.6)
[2019-11-12 06:12] LABS: Glucose,Whole Blood 185 mg/dL (75-99)
[2019-11-12] MEDS: methylPREDNISolone SOD SUCCI 125 MG/2 ML VIAL IV SCH ×4 (06:13→22:50)
[2019-11-12] MEDS: PANTOPRAZOLE 40 MG TABLET PO SCH (06:13)
[2019-11-12] MEDS: INSULIN ASPART (NovoLOG) 100 UNIT/ML VIAL SQ SCH ×4 (06:13→21:19)
[2019-11-12] MEDS: ERYTHROMYCIN 5 MG/GM OPHTH OINT 3.5 GM TUBE BOTH EYES SCH ×4 (06:14→22:50)
[2019-11-12] MEDS: LEVOTHYROXINE 88 MCG TAB PO SCH (06:16)
[2019-11-12 06:25] LABS: C Reactive Protein 25.2 mg/L (<10.0); Calcium 9.8 mg/dL (8.4-10.2); Magnesium 2.3 mg/dL (1.6-2.3); Potassium 5.5 mmol/L (3.5-5.1)
[2019-11-12] MEDS: SYMBICORT 160-4.5 MCG INHALER INHALATION SCH ×2 (06:59→19:23)
[2019-11-12] MEDS: ALBUTEROL HFA INHALER INHALATION SCH ×3 (06:59→19:23)
[2019-11-12] MEDS: TIOTROPIUM 18 MCG/PUFF INHALER INHALATION SCH (06:59)
[2019-11-12] MEDS ORDERED: FLUTICASONE INHALATION SCH (08:00)
[2019-11-12] MEDS ORDERED: SALMETEROL INHALATION SCH (08:00)
--- NOTE | 2019-11-12 08:51 | P.PN ---
Subjective Patient is seen in follow-up for acute kidney injury. Renal function is improving. Creatinine 1.52 today. Edema better since yesterday. Urine output over 3 L in the last 24 hours. No vomiting or diarrhea. Vital signs are stable. General: The patient appeared well nourished and normally developed. HEENT: Head exam is unremarkable. Neck is without jugular venous distension. LUNGS: Lungs are clear to auscultation and percussion. Breath sounds decreased. HEART: Rate and Rhythm are regular. ABDOMEN: No distention noted. Nontender. EXTREMITITES: 2+ edema. Objective - Vital Signs Vital signs: Vital Signs Temp 97.7 F 11/12/19 04:00 Pulse 123 H 11/12/19 04:00 Resp 26 H 11/12/19 04:00 BP 146/82 11/12/19 04:00 Pulse Ox 94 L 11/12/19 04:00 Intake & Output 11/11/19 11/12/19 11/12/19 18:59 06:59 18:59 Intake Total 1410 Output Total 2146 1950 Balance -737 -1949 Weight 109 kg Intake: Intake, IV Titration 50 Amount cefTRIAXone 1 gm In 50 Sodium Chloride 0.9% 50 ml @ 100 mls/hr IVPB Q24HR [facility] Rx#:[id number] Oral 1360 Output: Urine 2079 1949 Post Void Residual 67 Other: Voiding Method Urinal # Voids 3 1 - Labs CBC & Chem 7: 11/12/19 05:31 11/12/19 05:31 Labs: Abnormal Lab Results - Last 24 Hours (Table) 11/10/19 11/10/19 11/11/19 Range/Units 14:01 14:01 05:40 WBC (3.8-10.6) k/uL RBC (4.30-5.90) m/uL Hgb (13.0-17.5) gm/dL Hct (39.0-53.0) % Neutrophils # (1.3-7.7) k/uL Lymphocytes # (1.0-4.8) k/uL Potassium 6.2 H* (3.5-5.1) mmol/L Chloride 109 H (98-107) mmol/L BUN 53 H (9-20) mg/dL Creatinine 2.00 H (0.66-1.25) mg/dL Glucose 162 H (74-99) mg/dL POC Glucose (mg/dL) (75-99) mg/dL Ferritin 796.0 H (22.0-322.0) ng/mL Lactate Dehydrogenase (313-618) U/L C-Reactive Protein (<10.0) mg/L Procalcitonin 0.26 H (0.02-0.09) ng/mL 11/11/19 11/11/19 11/11/19 Range/Units 12:02 14:59 16:46 WBC (3.8-10.6) k/uL RBC (4.30-5.90) m/uL Hgb (13.0-17.5) gm/dL Hct (39.0-53.0) % Neutrophils # (1.3-7.7) k/uL Lymphocytes # (1.0-4.8) k/uL Potassium 5.2 H (3.5-5.1) mmol/L Chloride (98-107) mmol/L BUN (9-20) mg/dL Creatinine (0.66-1.25) mg/dL Glucose (74-99) mg/dL POC Glucose (mg/dL) 157 H 164 H (75-99) mg/dL Ferritin (22.0-322.0) ng/mL Lactate Dehydrogenase (313-618) U/L C-Reactive Protein (<10.0) mg/L Procalcitonin (0.02-0.09) ng/mL 11/11/19 11/12/19 11/12/19 Range/Units 20:25 05:31 05:31 WBC 15.3 H (3.8-10.6) k/uL RBC 3.50 L (4.30-5.90) m/uL Hgb 11.6 L (13.0-17.5) gm/dL Hct 34.5 L (39.0-53.0) % Neutrophils # 13.8 H (1.3-7.7) k/uL Lymphocytes # 0.8 L (1.0-4.8) k/uL Potassium 5.5 H (3.5-5.1) mmol/L Chloride (98-107) mmol/L BUN 55 H (9-20) mg/dL Creatinine 1.52 H (0.66-1.25) mg/dL Glucose 146 H (74-99) mg/dL POC Glucose (mg/dL) 146 H (75-99) mg/dL Ferritin (22.0-322.0) ng/mL Lactate Dehydrogenase 1111 H (313-618) U/L C-Reactive Protein 25.2 H (<10.0) mg/L Procalcitonin (0.02-0.09) ng/mL 11/12/19 Range/Units 06:11 WBC (3.8-10.6) k/uL RBC (4.30-5.90) m/uL Hgb (13.0-17.5) gm/dL Hct (39.0-53.0) % Neutrophils # (1.3-7.7) k/uL Lymphocytes # (1.0-4.8) k/uL Potassium (3.5-5.1) mmol/L Chloride (98-107) mmol/L BUN (9-20) mg/dL Creatinine (0.66-1.25) mg/dL Glucose (74-99) mg/dL POC Glucose (mg/dL) 185 H (75-99) mg/dL Ferritin (22.0-322.0) ng/mL Lactate Dehydrogenase (313-618) U/L C-Reactive Protein (<10.0) mg/L Procalcitonin (0.02-0.09) ng/mL Microbiology - Last 24 Hours (Table) 11/10/19 23:16 Blood Culture - Preliminary Blood No Growth after 24 hours Assessment and Plan Plan: Assessment: 1. Acute kidney injury mostly prerenal improving with IV hydration. Creatinine was 3.36 on admission and is 1.52 today. UA benign. No hydronephrosis noted on kidney ultrasound. No evidence of urinary retention. 2. Hyperkalemia secondary to acute kidney injury and further worsened with the use of potassium supplementation, lisinopril and Aldactone. 3. Volume overload. Improving with diuresis. 4. COPD exacerbation. Plan: Increase Lasix to 60 mg IV twice daily. Repeat potassium level this evening. Avoid nephrotoxins.
[2019-11-12] MEDS: FLUTICASONE 50MCG/SPRAY NASAL 16GM EA NOSTRIL SCH (09:31)
[2019-11-12] MEDS: FUROSEMIDE 10 MG/ML 10 ML VIAL IV SCH ×2 (09:31→21:19)
[2019-11-12] MEDS: HYDROcodone/APAP 7.5-325MG 1 EACH TAB PO SCH ×4 (09:31→21:18)
[2019-11-12] MEDS: FAMOTIDINE 20 MG TAB PO SCH (09:31)
[2019-11-12] MEDS: clonazePAM 1 MG TAB PO SCH ×2 (09:31→21:18)
[2019-11-12] MEDS: LORATADINE 10 MG TAB PO SCH (09:32)
[2019-11-12] MEDS: SODIUM CHLORIDE 0.9% 1,000 ML IV SCH (09:32)
[2019-11-12] MEDS: MAGNESIUM OXIDE 400 MG TAB PO SCH (09:32)
[2019-11-12 11:56] LABS: Glucose,Whole Blood 173 mg/dL (75-99)
[2019-11-12] MEDS: NICOTINE 14MG/24HR PATCH TRANSDERM SCH ×2 (12:18→17:07)
--- NOTE | 2019-11-12 12:26 | P.PN ---
Subjective Progress Note Date: 11/12/19 Principal diagnosis: Acute exacerbation chronic obstructive pulmonary disease This is a very pleasant 54-year-old gentleman who follows with Isabella velazquez PCP. He resides in the [place] area. He has a history of anxiety, hypertension, hypothyroidism, chronic pain syndrome, irritable bowel syndrome, obesity. He also has a history of chronic tobacco dependence and chronic obstructive pulmonary disease and was seen in August [address] Shields at the [facility]. He has an FEV1 value 40% of predicted. He presented here to the hospital yesterday as a transfer from [facility] with complaints of worsening shortness of breath. He is also found to have acute renal failure. He had elevated d-dimer. VQ scan done here revealed in determinant findings. He does have some chronic lower extremity edema. Dopplers were negative for DVT. Chest x-ray revealed no acute pulmonary process. He is seen today in consultation on the selective care unit. He is currently awake and alert in no acute distress. He states he quit smoking on September 14 of this year. He does have a nebulizer at home. He is also maintained on Advair. Presently he sitting up in bed. Awake and alert in no acute distress. He is maintaining O2 saturations in the upper 90s on 3 L/m per nasal cannula. He is afebrile. Slightly tachycardic. Currently on a heparin drip. White count 8.9. Hemoglobin 12.1. Sodium 138. Potassium 6.2. Chloride 109. Creatinine 2.00. Urinalysis clear. He is currently on bronchodilators, Solu- Medrol. The patient is seen today the 2019 in follow-up on the regular medical floor. He is awake and alert in no acute distress. He is maintaining O2 saturations in the 90s on 2 L/m per nasal cannula. Breathing easier today comp ared to yesterday. Not quite back to his baseline. He is still having some anxiety. He is on Klonopin. Requesting higher levels of NicoDerm patch. White count 15.3. Hemoglobin 11.6. Sodium 138. Potassium 5.5. Creatinine 1.52. Blood culture reveals no growth. He is continued on ceftriaxone, Symbicort, Spiriva, albuterol, IV Solu-Medrol. He is also on IV diuretics. Objective - Vital Signs Vital signs: Vital Signs Temp 97.8 F 11/12/19 08:00 Pulse 118 H 11/12/19 08:00 Resp 22 11/12/19 08:00 BP 151/100 11/12/19 08:00 Pulse Ox 96 11/12/19 08:00 Intake & Output 11/11/19 11/12/19 11/12/19 18:59 06:59 18:59 Intake Total 1410 Output Total 2146 1949 Balance -737 -1949 Weight 109 kg Intake: Intake, IV Titration 50 Amount cefTRIAXone 1 gm In 50 Sodium Chloride 0.9% 50 ml @ 100 mls/hr IVPB Q24HR [facility] Rx#:[id number] Oral 1360 Output: Urine 2079 1949 Post Void Residual 67 Other: Voiding Method Urinal # Voids 3 1 - Exam GENERAL EXAM: Alert, pleasant 54-year-old gentleman, on 2 L nasal cannula, comfortable in no apparent distress. HEAD: Normocephalic. EYES: Normal reaction of pupils, equal size. NOSE: Clear with pink turbinates. THROAT: No erythema or exudates. NECK: No masses, no JVD. CHEST: No chest wall deformity. LUNGS: Equal air entry with bilateral end expiratory wheeze, diminished. CVS: S1 and S2 normal with no audible murmur, regular rhythm. ABDOMEN: No hepatosplenomegaly, normal bowel sounds, no guarding or rigidity. SPINE: No scoliosis or deformity SKIN: No rashes CENTRAL NERVOUS SYSTEM: No focal deficits, tone is normal in all 4 extremities. EXTREMITIES: There is 1+ peripheral edema. No clubbing, no cyanosis. Peripheral pulses are intact. - Labs CBC & Chem 7: 11/12/19 05:31 11/12/19 05:31 Labs: Abnormal Lab Results - Last 24 Hours (Table) 11/10/19 11/11/19 11/11/19 Range/Units 14:01 14:59 16:46 WBC (3.8-10.6) k/uL RBC (4.30-5.90) m/uL Hgb (13.0-17.5) gm/dL Hct (39.0-53.0) % Neutrophils # (1.3-7.7) k/uL Lymphocytes # (1.0-4.8) k/uL Potassium 5.2 H (3.5-5.1) mmol/L BUN (9-20) mg/dL Creatinine (0.66-1.25) mg/dL Glucose (74-99) mg/dL POC Glucose (mg/dL) 164 H (75-99) mg/dL Lactate Dehydrogenase (313-618) U/L C-Reactive Protein (<10.0) mg/L Procalcitonin 0.26 H (0.02-0.09) ng/mL 11/11/19 11/12/19 11/12/19 Range/Units 20:25 05:31 05:31 WBC 15.3 H (3.8-10.6) k/uL RBC 3.50 L (4.30-5.90) m/uL Hgb 11.6 L (13.0-17.5) gm/dL Hct 34.5 L (39.0-53.0) % Neutrophils # 13.8 H (1.3-7.7) k/uL Lymphocytes # 0.8 L (1.0-4.8) k/uL Potassium 5.5 H (3.5-5.1) mmol/L BUN 55 H (9-20) mg/dL Creatinine 1.52 H (0.66-1.25) mg/dL Glucose 146 H (74-99) mg/dL POC Glucose (mg/dL) 146 H (75-99) mg/dL Lactate Dehydrogenase 1111 H (313-618) U/L C-Reactive Protein 25.2 H (<10.0) mg/L Procalcitonin (0.02-0.09) ng/mL 11/12/19 11/12/19 Range/Units 06:11 11:55 WBC (3.8-10.6) k/uL RBC (4.30-5.90) m/uL Hgb (13.0-17.5) gm/dL Hct (39.0-53.0) % Neutrophils # (1.3-7.7) k/uL Lymphocytes # (1.0-4.8) k/uL Potassium (3.5-5.1) mmol/L BUN (9-20) mg/dL Creatinine (0.66-1.25) mg/dL Glucose (74-99) mg/dL POC Glucose (mg/dL) 185 H 173 H (75-99) mg/dL Lactate Dehydrogenase (313-618) U/L C-Reactive Protein (<10.0) mg/L Procalcitonin (0.02-0.09) ng/mL Microbiology - Last 24 Hours (Table) 11/10/19 23:16 Blood Culture - Preliminary Blood No Growth after 24 hours Assessment and Plan Assessment: 1 Acute hypoxic respiratory failure secondary to an acute exacerbation of chronic obstructive pulmonary disease. FEV1 value 40% of predicted 2 Chronic tobacco dependence states he recently quit in September 2019. 3 Acute renal failure, suspect prerenal improving with IV hydration 4 Hyperkalemia secondary to above along with potassium sparing diuretics and javier inhibitors 5 Obesity 6 Hypothyroidism 7 History of irritable bowel syndrome 8 History of anxiety/depression 9 Hypertension Plan: The patient was seen and evaluated by Dr. Shields Continue Symbicort, Spiriva, albuterol Continue IV Solu-Medrol IV diuretics per nephrology Continued on ceftriaxone Titrate down the FiO2 as tolerated Increase his activity as tolerated He is again educated regarding the importance of complete smoking cessation. Ni coDerm patch in place Probable discharge in the a.m. We will continue to follow and make further recommendations based on his clinical status. I, the cosigning physician, performed a history & physical examination of the patient. Lungs sounds with end expiratory wheeze, diminished. Maintaining good O2 saturations in the 90s on 2 L/m per nasal cannula. I discussed the assessmen t and plan of care with my nurse practitioner, Марина Biggs. I attest to the above note as dictated by her.
[2019-11-12 14:12] LABS: T4, Free (Free Thyroxine) 1.58 ng/dL (0.78-2.19)
--- NOTE | 2019-11-12 15:46 | PN ---
PROGRESS NOTE DATE OF SERVICE: 11/12/2019 This 54-year-old gentleman who was admitted with COPD, acute exacerbation, also is significantly short of breath at this time even on mild exertion. The patient was also suspected to have COVID-19; test was negative. The patient also had a chest CT yesterday which showed COPD with emphysema and as well as a 5 mm right mid lung pulmonary nodule. Twelve-month followup has been suggested. The patient also had an abdominal ultrasound which showed no hydronephrosis. Past medical history reviewed. REVIEW OF SYSTEMS: CARDIOVASCULAR SYSTEM: No angina, palpitations. RESPIRATORY SYSTEM: As mentioned earlier. GI: As mentioned earlier. : No dysuria or retention. CURRENT MEDICATIONS: Reviewed. They include: 1. Averill 7.5 mg q.i.d. p.r.n. 2. Ventolin 2 puffs q.i.d. 3. Symbicort 160/4.5 two puffs b.i.d. 4. Rocephin 1 gram daily. 5. Klonopin 1 mg b.i.d. 6. Erythromycin. 7. Pepcid 20 mg p.o. daily. 8. Flonase. 9. Lasix 60 mg IV b.i.d. 10.Synthroid 88 mcg p.o. daily. 11.Claritin 10 mg p.o. daily. 12.Magnesium oxide 400 mg p.o. daily. 13.Solu-Medrol 60 IV q.6. 14.Lopressor 25 mg p.o. b.i.d. 15.Habitrol 14 daily. 16.Protonix 40 mg p.o. daily. 17.Spiriva 1 puff daily. 18.Desyrel 50 mg p.o. at bedtime. PHYSICAL EXAMINATION: Patient is alert, oriented x3. Pulse is 117, blood pressure 145/101, respiration 22, temperature 97.8, pulse ox 98% on 2 L. HEENT: Conjunctivae normal. Oral mucosa moist. NECK: No jugular venous distention. No carotid bruit. No lymph node enlargement. CARDIOVASCULAR SYSTEM: S1, S2 muffled. RESPIRATORY SYSTEM: Breath sounds diminished at the bases. A few scattered rhonchi and crackles. ABDOMEN: Soft, obese, non-tender. LEGS: No edema. No swelling. NERVOUS SYSTEM: No focal deficit. LABS: WBC 15.3, hemoglobin 11.6. Sodium 138, potassium 5.5. LDH is 111. TSH is 0.069. Free T4 is normal. C-reactive protein is 24.2. ASSESSMENT: 1. Chronic obstructive pulmonary disease, acute exacerbation, with acute purulent tracheobronchitis. 2. Acute hypoxic respiratory failure secondary to number 1. 3. Suspected COVID-19; however, test is negative; could be false negative. 4. History of nicotine dependence. 5. Acute renal failure, prerenal renal failure with acute tubular necrosis. 6. Hyperkalemia secondary to acute renal failure. 7. Anemia, normocytic anemia of chronic disease. 8. History of congestive heart failure, ejection fraction unknown. 9. Hypertension. 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 11.CT scan chest shows 5 mm right mid pulmonary lung nodule. 12.History of left testicular growth and removal. 13.History of anxiety. 14.Remote history of nicotine dependence. 15.Obesity with body mass index of 38.8. 16.FULL CODE. RECOMMENDATIONS AND DISCUSSION: In this 54-year-old gentleman who presented with multiple complex medical issues, we will monitor the patient closely, continue the current medications, continue symptomatic treatment. The patient is increasingly symptomatic at this time. I would recommend continuing with IV Lasix as recommended by Dr. Redmond, monitor the creatinine closely. Monitor fluid/electrolyte balance closely. Otherwise, I recommend continuing with the empiric antibiotics and IV steroids. Continue to monitor. Closely follow with multiple consultants. Prognosis extremely guarded. Discussed with the patient, who understands and agrees. MMODL / IJN: [id number] /
[2019-11-12] MEDS: METOPROLOL TARTRATE 25 MG TAB PO SCH ×2 (16:00→21:18)
[2019-11-12 17:10] LABS: Glucose,Whole Blood 201 mg/dL (75-99)
[2019-11-12 20:46] LABS: Glucose,Whole Blood 145 mg/dL (75-99)
[2019-11-12] MEDS: traZODone HCL 50 MG TAB PO SCH (21:18)
--- NOTE | 2019-11-12 22:31 | PN ---
PROGRESS NOTE DATE OF SERVICE: 11/12/2019 REASON FOR FOLLOWUP: Elevated inflammatory marker and a question of infection. INTERVAL HISTORY: The patient is currently afebrile. The patient has been breathing more comfortably. Denies having any chest pain, shortness of breath. Some cough. No sputum. No nausea. No vomiting. No abdominal pain or diarrhea. PHYSICAL EXAMINATION: Blood pressure is 162/94 with a pulse of 106, temperature 97.6. He is 98% on 2 L nasal cannula. General description is a middle-aged male up in the chair in no distress. RESPIRATORY SYSTEM: Unlabored breathing with decreased intensity of breath sounds. No wheeze. HEART: S1, S2. Regular rate and rhythm. ABDOMEN: Soft. No tenderness. LABS/IMAGING: BUN is 55, creatinine 1.52. Hemoglobin is 11.6, white count 15.3. Urine is negative. Blood culture negative. CT of the chest did not show any consolidation. DIAGNOSTIC IMPRESSION AND PLAN: Patient presented to hospital with shortness of breath which is more likely due to underlying chronic obstructive pulmonary disease exacerbation, possible tracheobronchitis, clinically not behaving as pneumonia and currently no other obvious focus of infection. Urine is negative and no evidence of any cellulitis. On empiric Rocephin, which can be discontinued, and monitor his clinical course closely. MMODL / IJN: [id number] /
[2019-11-13] MEDS: ALBUTEROL HFA INHALER INHALATION PRN ×2 (03:33→16:12)
[2019-11-13 06:04] LABS: Glucose,Whole Blood 159 mg/dL (75-99)
[2019-11-13] MEDS: LEVOTHYROXINE 88 MCG TAB PO SCH (06:16)
[2019-11-13] MEDS: PANTOPRAZOLE 40 MG TABLET PO SCH (06:16)
[2019-11-13] MEDS: methylPREDNISolone SOD SUCCI 125 MG/2 ML VIAL IV SCH ×4 (06:16→22:55)
[2019-11-13] MEDS: INSULIN ASPART (NovoLOG) 100 UNIT/ML VIAL SQ SCH ×4 (06:16→22:55)
[2019-11-13] MEDS: ERYTHROMYCIN 5 MG/GM OPHTH OINT 3.5 GM TUBE BOTH EYES SCH ×4 (06:17→22:57)
[2019-11-13 06:48] LABS: Basophils % (A) 0 %; Eosinophils % (A) 0 %; HCT 36.9 % (39.0-53.0); Lymphocytes # (A) 0.7 k/uL (1.0-4.8); Lymphocytes % (A) 4 %; MCH 32.4 pg (25.0-35.0); MCHC 32.4 g/dL (31.0-37.0); Mean Platelet Volume 7.4; Monocytes # (A) 0.9 k/uL (0-1.0); Monocytes % (A) 6 %; Neutrophils # (A) 14.8 k/uL (1.3-7.7); Neutrophils % (A) 89 %; Platelet Count 337 k/uL (150-450); RBC 3.69 m/uL (4.30-5.90); RDW 13.5 % (11.5-15.5); WBC 16.7 k/uL (3.8-10.6)
[2019-11-13 07:00] LABS: Calcium 9.9 mg/dL (8.4-10.2); Magnesium 2.4 mg/dL (1.6-2.3); Potassium 5.1 mmol/L (3.5-5.1)
[2019-11-13] MEDS: ALBUTEROL HFA INHALER INHALATION SCH ×3 (08:56→20:24)
[2019-11-13] MEDS: TIOTROPIUM 18 MCG/PUFF INHALER INHALATION SCH (08:57)
[2019-11-13] MEDS: SYMBICORT 160-4.5 MCG INHALER INHALATION SCH ×2 (08:57→20:36)
[2019-11-13] MEDS ORDERED: NICOTINE 14MG/24HR PATCH TRANSDERM SCH (09:00)
--- NOTE | 2019-11-13 09:14 | P.PN ---
Subjective Patient is seen in follow-up for acute kidney injury. Renal function a little worse today which is due to diuresis. Edema better since yesterday. Nonoliguric. Vital signs are stable. General: The patient appeared well nourished and normally developed. HEENT: Head exam is unremarkable. Neck is without jugular venous distension. LUNGS: Lungs are clear to auscultation and percussion. Breath sounds decreased. HEART: Rate and Rhythm are regular. ABDOMEN: No distention noted. Nontender. EXTREMITITES: 1+ edema. Objective - Vital Signs Vital signs: Vital Signs Temp 97.8 F 11/13/19 02:53 Pulse 102 H 11/13/19 02:53 Resp 20 11/13/19 02:53 BP 163/84 11/13/19 02:53 Pulse Ox 94 L 11/13/19 02:53 Intake & Output 11/12/19 11/13/19 11/13/19 18:59 06:59 18:59 Intake Total 720 360 Output Total 825 3300 Balance -105 -3300 360 Intake: Oral 720 360 Output: Urine 825 3300 Other: Voiding Method Urinal # Voids 3 # Bowel Movements 0 0 - Labs CBC & Chem 7: 11/13/19 05:36 11/13/19 05:36 Labs: Abnormal Lab Results - Last 24 Hours (Table) 11/12/19 11/12/19 11/12/19 Range/Units 05:31 11:55 16:24 WBC (3.8-10.6) k/uL RBC (4.30-5.90) m/uL Hgb (13.0-17.5) gm/dL Hct (39.0-53.0) % Neutrophils # (1.3-7.7) k/uL Lymphocytes # (1.0-4.8) k/uL Potassium 5.4 H (3.5-5.1) mmol/L BUN (9-20) mg/dL Creatinine (0.66-1.25) mg/dL Glucose (74-99) mg/dL POC Glucose (mg/dL) 173 H (75-99) mg/dL Magnesium (1.6-2.3) mg/dL TSH 0.069 L (0.465-4.680) mIU/L 11/12/19 11/12/19 11/13/19 Range/Units 16:55 20:44 05:36 WBC 16.7 H (3.8-10.6) k/uL RBC 3.69 L (4.30-5.90) m/uL Hgb 12.0 L (13.0-17.5) gm/dL Hct 36.9 L (39.0-53.0) % Neutrophils # 14.8 H (1.3-7.7) k/uL Lymphocytes # 0.7 L (1.0-4.8) k/uL Potassium (3.5-5.1) mmol/L BUN (9-20) mg/dL Creatinine (0.66-1.25) mg/dL Glucose (74-99) mg/dL POC Glucose (mg/dL) 201 H 145 H (75-99) mg/dL Magnesium (1.6-2.3) mg/dL TSH (0.465-4.680) mIU/L 11/13/19 11/13/19 Range/Units 05:36 06:02 WBC (3.8-10.6) k/uL RBC (4.30-5.90) m/uL Hgb (13.0-17.5) gm/dL Hct (39.0-53.0) % Neutrophils # (1.3-7.7) k/uL Lymphocytes # (1.0-4.8) k/uL Potassium (3.5-5.1) mmol/L BUN 66 H (9-20) mg/dL Creatinine 1.73 H (0.66-1.25) mg/dL Glucose 134 H (74-99) mg/dL POC Glucose (mg/dL) 159 H (75-99) mg/dL Magnesium 2.4 H (1.6-2.3) mg/dL TSH (0.465-4.680) mIU/L Microbiology - Last 24 Hours (Table) 11/10/19 23:16 Blood Culture - Preliminary Blood No Growth after 48 hours Assessment and Plan Plan: Assessment: 1. Acute kidney injury secondary to cardiorenal syndrome. Renal function a little worse today due to diuresis. Creatinine 1.73. UA benign. No hydronephrosis noted on kidney ultrasound. No evidence of urinary retention. 2. Hyperkalemia secondary to acute kidney injury and further worsened with the use of potassium supplementation, lisinopril and Aldactone. Better. 3. Volume overload. Improving with diuresis. 4. COPD exacerbation. Plan: Maintain Lasix 60 mg IV twice daily for another 24 hours. Avoid nephrotoxins. Follow-up echocardiogram. Repeat electrolytes in the morning.
[2019-11-13] MEDS: HYDROcodone/APAP 7.5-325MG 1 EACH TAB PO SCH ×4 (11:07→22:55)
[2019-11-13] MEDS: LORATADINE 10 MG TAB PO SCH (11:07)
[2019-11-13] MEDS: clonazePAM 1 MG TAB PO SCH ×2 (11:07→20:41)
[2019-11-13] MEDS: MAGNESIUM OXIDE 400 MG TAB PO SCH (11:08)
[2019-11-13] MEDS: METOPROLOL TARTRATE 25 MG TAB PO SCH ×2 (11:08→20:41)
[2019-11-13] MEDS: FLUTICASONE 50MCG/SPRAY NASAL 16GM EA NOSTRIL SCH (11:08)
[2019-11-13] MEDS: FUROSEMIDE 10 MG/ML 10 ML VIAL IV SCH ×2 (11:09→20:41)
[2019-11-13] MEDS: FAMOTIDINE 20 MG TAB PO SCH (11:10)
[2019-11-13] MEDS: SODIUM CHLORIDE 0.9% 1,000 ML IV SCH (11:22)
--- NOTE | 2019-11-13 11:49 | P.PN ---
Subjective Progress Note Date: 11/13/19 This is a 54-year-old gentleman with history of anxiety, hypertension, hypothyroidism, chronic pain syndrome, obesity, and irritable bowel syndrome, he also has a history of chronic nicotine dependence and COPD for which she follows as an outpatient with Dr. Mendoza. He presented to the hospital with symptoms of progressively worsening shortness of breath. He was seen in consultation yesterday by Dr. Watts. Patient was seen and evaluated this morning by Dr. Watts, he has been on IV Lasix, has been diuresing. Continues to feel quite short of breath this morning, continues to have significant bilateral peripheral edema. Blood pressure 160/80 with a heart rate in the 90s low 100s, 94% on 2 L of oxygen. White blood cell count 16.7, hemoglobin 12.0, platelet count 337. Sodium 138, potassium 5.1, BUN 66, creatinine 1.7, magnesium 2.4. Objective - Vital Signs Vital signs: Vital Signs Temp 97.8 F 11/13/19 02:53 Pulse 102 H 11/13/19 02:53 Resp 20 11/13/19 02:53 BP 163/84 11/13/19 02:53 Pulse Ox 94 L 11/13/19 02:53 Intake & Output 11/12/19 11/13/19 11/13/19 18:59 06:59 18:59 Intake Total 720 360 Output Total 825 3300 Balance -105 -3300 360 Intake: Oral 720 360 Output: Urine 825 3300 Other: Voiding Method Urinal # Voids 3 # Bowel Movements 0 0 - Exam GENERAL EXAM: Alert, pleasant 54-year-old gentleman, on 3 L nasal cannula, comfortable in no apparent distress. HEAD: Normocephalic. EYES: Normal reaction of pupils, equal size. NOSE: Clear with pink turbinates. THROAT: No erythema or exudates. NECK: No masses, no JVD. CHEST: No chest wall deformity. LUNGS: Equal air entry with bilateral diminished air entry to the bases. CVS: S1 and S2 tachycardic with no audible murmur, regular rhythm. ABDOMEN: No hepatosplenomegaly, normal bowel sounds, no guarding or rigidity. SPINE: No scoliosis or deformity SKIN: No rashes CENTRAL NERVOUS SYSTEM: No focal deficits, tone is normal in all 4 extremities. EXTREMITIES: There is 1+-2+ peripheral edema. No clubbing, no cyanosis. Peripheral pulses are intact. - Labs CBC & Chem 7: 11/13/19 05:36 11/13/19 05:36 Labs: Abnormal Lab Results - Last 24 Hours (Table) 11/12/19 11/12/19 11/12/19 Range/Units 05:31 11:55 16:24 WBC (3.8-10.6) k/uL RBC (4.30-5.90) m/uL Hgb (13.0-17.5) gm/dL Hct (39.0-53.0) % Neutrophils # (1.3-7.7) k/uL Lymphocytes # (1.0-4.8) k/uL Potassium 5.4 H (3.5-5.1) mmol/L BUN (9-20) mg/dL Creatinine (0.66-1.25) mg/dL Glucose (74-99) mg/dL POC Glucose (mg/dL) 173 H (75-99) mg/dL Magnesium (1.6-2.3) mg/dL TSH 0.069 L (0.465-4.680) mIU/L 11/12/19 11/12/19 11/13/19 Range/Units 16:55 20:44 05:36 WBC 16.7 H (3.8-10.6) k/uL RBC 3.69 L (4.30-5.90) m/uL Hgb 12.0 L (13.0-17.5) gm/dL Hct 36.9 L (39.0-53.0) % Neutrophils # 14.8 H (1.3-7.7) k/uL Lymphocytes # 0.7 L (1.0-4.8) k/uL Potassium (3.5-5.1) mmol/L BUN (9-20) mg/dL Creatinine (0.66-1.25) mg/dL Glucose (74-99) mg/dL POC Glucose (mg/dL) 201 H 145 H (75-99) mg/dL Magnesium (1.6-2.3) mg/dL TSH (0.465-4.680) mIU/L 11/13/19 11/13/19 Range/Units 05:36 06:02 WBC (3.8-10.6) k/uL RBC (4.30-5.90) m/uL Hgb (13.0-17.5) gm/dL Hct (39.0-53.0) % Neutrophils # (1.3-7.7) k/uL Lymphocytes # (1.0-4.8) k/uL Potassium (3.5-5.1) mmol/L BUN 66 H (9-20) mg/dL Creatinine 1.73 H (0.66-1.25) mg/dL Glucose 134 H (74-99) mg/dL POC Glucose (mg/dL) 159 H (75-99) mg/dL Magnesium 2.4 H (1.6-2.3) mg/dL TSH (0.465-4.680) mIU/L Microbiology - Last 24 Hours (Table) 11/10/19 23:16 Blood Culture - Preliminary Blood No Growth after 48 hours Assessment and Plan Plan: Assessment and plan: #1 Acute hypoxic respiratory failure secondary to an acute exacerbation of chronic obstructive pulmonary disease, and congestive heart failure. LV fu nction unknown #2 Chronic tobacco dependence recently quit in September 2019. #3 Acute renal failure, secondary to cardiorenal syndrome #4 Hyperkalemia secondary to above along with potassium sparing diuretics and javier inhibitors, improving #5 Obesity #6 Hypothyroidism #7 History of irritable bowel syndrome #8 History of anxiety/depression #9 Hypertension Plan We will check to see if the patient had a recent echo performed in the office, if not we will repeat one here. Based on the findings of the echo, we may consider labetalol 100 mg by mouth twice a day. Continue IV diuresis as per n ephrology. DNP note has been reviewed, I agree with a documented findings and plan of care. Patient was seen and examined.
[2019-11-13 11:50] LABS: Glucose,Whole Blood 177 mg/dL (75-99)
--- NOTE | 2019-11-13 13:38 | P.PN ---
Subjective Progress Note Date: 11/13/19 Principal diagnosis: Acute exacerbation of COPD. This is a very pleasant 54-year-old gentleman who follows with Isabella velazquez PCP. He resides in the [place] area. He has a history of anxiety, hypertension, hypothyroidism, chronic pain syndrome, irritable bowel syndrome, obesity. He also has a history of chronic tobacco dependence and chronic obstructive pulmonary disease and was seen in August [address] Shields at [facility]. He has an FEV1 value 40% of predicted. He presented here to the hospital yesterday as a transfer from [facility] with complaints of worsening shortness of breath. He is also found to have acute renal failure. He had elevated d-dimer. VQ scan done here revealed in determinant findings. He does have some chronic lower extremity edema. Dopplers were negative for DVT. Chest x-ray revealed no acute pulmonary process. He is seen today in consultation on the selective care unit. He is currently awake and alert in no acute distress. He states he quit smoking on September 14 of this year. He does have a nebulizer at home. He is also maintained on Advair. Presently he sitting up in bed. Awake and alert in no acute distress. He is maintaining O2 saturations in the upper 90s on 3 L/m per nasal cannula. He is afebrile. Slightly tachycardic. Currently on a heparin drip. White count 8.9. Hemoglobin 12.1. Sodium 138. Potassium 6.2. Chloride 109. Creatinine 2.00. Urinalysis clear. He is currently on bronchodilators, Solu- Medrol. The patient is seen today the 2019 in follow-up on the regular medical floor. He is awake and alert in no acute distress. He is maintaining O2 saturations in the 90s on 2 L/m per nasal cannula. Breathing easier today compared to yesterday. Not quite back to his baseline. He is still having some anxiety. He is on Klonopin. Requesting higher levels of NicoDerm patch. White count 15.3. Hemoglobin 11.6. Sodium 138. Potassium 5.5. Creatinine 1.52. Blood culture reveals no growth. He is continued on ceftriaxone, Symbicort, Spiriva, albuterol, IV Solu-Medrol. He is also on IV diuretics. Reevaluated today on 11/13/19, patient is doing better, breathing easier, less cough and less wheezing less shortness of breath. Patient is fully optimized for his underlying COPD, and he is on proper bronchodilators and steroids. Patient was seen by nephrology, and he was diuresed. Significant amount of urine was noted over the last 24 hours. Creatinine today is 1.73, it was 3.36 on admission. BUN is 66 and it was 56 on admission. Clinically the patient is feeling better, breathing easier. CT of the chest on admission showed no evidence of pneumonia, it did show however moderate emphysema and there was no evidence of acute pulmonary process, Objective - Vital Signs Vital signs: Vital Signs Temp 97.8 F 11/13/19 02:53 Pulse 102 H 11/13/19 02:53 Resp 20 11/13/19 02:53 BP 163/84 11/13/19 02:53 Pulse Ox 94 L 11/13/19 02:53 Intake & Output 11/12/19 11/13/19 11/13/19 18:59 06:59 18:59 Intake Total 720 360 Output Total 825 3300 Balance -105 -3300 360 Intake: Oral 720 360 Output: Urine 825 3300 Other: Voiding Method Urinal # Voids 3 # Bowel Movements 0 0 - Exam GENERAL EXAM: Alert, pleasant 54-year-old gentleman, on 2 L nasal cannula, comfortable, in no distress HEAD: Normocephalic. Atraumatic. EENT: PERRLA, EOMI, no icterus, no neck masses, no JVD, no stridor. Cardiac: Normal S1 and S2, no S3 gallop. Chest: Symmetrical chest expansion, diminished breath sound bilaterally no crackles or rhonchi or wheezes. ABDOMEN: No hepatosplenomegaly, normal bowel sounds, no guarding or rigidity. SPINE: No scoliosis or deformity SKIN: No rashes CENTRAL NERVOUS SYSTEalert oriented 3 focal deficits. Extremities: Trace of bipedal edema no cyanosis. Good pulses bilaterally. psychiatric: Normal mood, affect and normal mental status examination slightly anxious how - Labs CBC & Chem 7: 11/13/19 05:36 11/13/19 05:36 Labs: Abnormal Lab Results - Last 24 Hours (Table) 11/12/19 11/12/19 11/12/19 Range/Units 05:31 16:24 16:55 WBC (3.8-10.6) k/uL RBC (4.30-5.90) m/uL Hgb (13.0-17.5) gm/dL Hct (39.0-53.0) % Neutrophils # (1.3-7.7) k/uL Lymphocytes # (1.0-4.8) k/uL Potassium 5.4 H (3.5-5.1) mmol/L BUN (9-20) mg/dL Creatinine (0.66-1.25) mg/dL Glucose (74-99) mg/dL POC Glucose (mg/dL) 201 H (75-99) mg/dL Magnesium (1.6-2.3) mg/dL TSH 0.069 L (0.465-4.680) mIU/L 11/12/19 11/13/19 11/13/19 Range/Units 20:44 05:36 05:36 WBC 16.7 H (3.8-10.6) k/uL RBC 3.69 L (4.30-5.90) m/uL Hgb 12.0 L (13.0-17.5) gm/dL Hct 36.9 L (39.0-53.0) % Neutrophils # 14.8 H (1.3-7.7) k/uL Lymphocytes # 0.7 L (1.0-4.8) k/uL Potassium (3.5-5.1) mmol/L BUN 66 H (9-20) mg/dL Creatinine 1.73 H (0.66-1.25) mg/dL Glucose 134 H (74-99) mg/dL POC Glucose (mg/dL) 145 H (75-99) mg/dL Magnesium 2.4 H (1.6-2.3) mg/dL TSH (0.465-4.680) mIU/L 11/13/19 11/13/19 Range/Units 06:02 11:48 WBC (3.8-10.6) k/uL RBC (4.30-5.90) m/uL Hgb (13.0-17.5) gm/dL Hct (39.0-53.0) % Neutrophils # (1.3-7.7) k/uL Lymphocytes # (1.0-4.8) k/uL Potassium (3.5-5.1) mmol/L BUN (9-20) mg/dL Creatinine (0.66-1.25) mg/dL Glucose (74-99) mg/dL POC Glucose (mg/dL) 159 H 177 H (75-99) mg/dL Magnesium (1.6-2.3) mg/dL TSH (0.465-4.680) mIU/L Microbiology - Last 24 Hours (Table) 11/10/19 23:16 Blood Culture - Preliminary Blood No Growth after 48 hours Assessment and Plan Assessment: Impression: Acute on chronic hypoxic respiratory failure secondary to acute exacerbation of COPD Acute renal failure, suspect prerenal azotemia, being addressed by nephrology Obesity Chronic hypoxic respiratory failure, patient is O2 dependent on 2 L at home. History of hypothyroidism History of irritable bowel syndrome Generalized anxiety disorder History of hypertension Recommendation: Continue present treatment plan Continue bronchodilators including albuterol Spiriva Symbicort Switch patient to prednisone and tapered over the next 2-3 weeks. Consider discharge planning and follow-up on outpatient basis with me in [place]. Patient already has home O2 and he already has bronchodilators. Updrafts and inhalers at home. Time with Patient: Less than 30
[2019-11-13 16:40] LABS: Glucose,Whole Blood 200 mg/dL (75-99)
--- NOTE | 2019-11-13 18:48 | PN ---
PROGRESS NOTE DATE OF SERVICE: 11/12/2019 This 54-year-old gentleman who was admitted with COPD, acute exacerbation, acute purulent tracheobronchitis, also had acute hypoxic respiratory failure. Patient also had suspected COVID infection. Patient also had a chest CT which showed a 5 mm right mid lung nodule only. The patient is being closely monitored at this time. PT/OT evaluated this patient for possible ECF rehab. Cautious diuretics have also been initiated. No chest pain. No palpitations. Past medical history reviewed. REVIEW OF SYSTEMS: CARDIOVASCULAR SYSTEM: No angina, palpitations. RESPIRATORY SYSTEM: As mentioned earlier. GI: As mentioned earlier. : No dysuria or retention. NERVOUS SYSTEM: No numbness, weakness. CURRENT MEDICATIONS: Reviewed. They include: 1. [place] 7.5 q.i.d. p.r.n. 2. Ventolin HFA. 3. Symbicort 160/4.5 two puffs b.i.d. 4. Rocephin 1 gram daily. 5. Klonopin 1 mg b.i.d. 6. Vitamin D2. 7. Erythromycin. 8. Pepcid. 9. Lasix. 10.NovoLog. 11.Claritin. 12.Magnesium oxide. 13.Solu-Medrol. 14.Lopressor. 15.Habitrol 14. 16.Spiriva. 17.Desyrel. PHYSICAL EXAMINATION: Patient is alert, oriented x3. Pulse is 102, blood pressure 160/84, respiration 20, temperature 97.8, pulse ox 94% on 2 L. HEENT: Conjunctivae normal. NECK: No jugular venous distention. CARDIOVASCULAR SYSTEM: S1, S2 muffled. RESPIRATORY SYSTEM: Breath sounds diminished at the bases. A few scattered rhonchi and crackles. Expiratory wheezing also present. Patient is extremely short of breath, even during a short walk. ABDOMEN: Soft, obese. LEGS: Bilateral leg edema. NERVOUS SYSTEM: No focal deficit. LABS: Labs at this time show WBC 16.6, hemoglobin 12, creatinine is 1.73. ASSESSMENT: 1. Chronic obstructive pulmonary disease, acute exacerbation, with acute purulent tracheobronchitis, present on admission, with acute hypoxic respiratory failure. 2. Suspected COVID-19; however, test is negative. Could be false negative. 3. History of nicotine dependence. 4. Acute renal failure, prerenal renal failure with acute tubular necrosis. 5. Hyperkalemia secondary to acute renal failure. 6. Anemia, normocytic anemia of chronic disease. 7. History of congestive heart failure with ejection fraction unknown. 8. Hypertension. 9. 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 However, CT scan of the chest showed only 5 mm right pulmonary nodule. To be followed up in the outpatient setting. 10.History of left testicular growth and removal. 11.History of anxiety. 12.Remote history of nicotine dependence. 13.Obesity with body mass index of 38.8. 14.FULL CODE. RECOMMENDATIONS AND DISCUSSION: I recommend to continue current medications, continue with the monitoring, symptomatic treatment. Otherwise, continue with cautious diuresis, bronchodilators, PT/OT evaluation. ECF rehab is an option, but if the patient is able to ambulate, returning home may be a better option. Guarded prognosis. Further recommendations to follow. MMBRIGITTEL / KANEN: [id number] /
[2019-11-13] MEDS: traZODone HCL 50 MG TAB PO SCH (20:41)
[2019-11-13 20:46] LABS: Glucose,Whole Blood 186 mg/dL (75-99)
--- NOTE | 2019-11-13 22:06 | PN ---
PROGRESS NOTE DATE OF SERVICE: 11/13/2019 REASON FOR FOLLOWUP: Elevated inflammatory markers and likely tracheobronchitis. INTERVAL HISTORY: The patient is currently afebrile. The patient is still complaining of shortness of breath and did have a wheeze and cough but not sputum. No nausea, no vomiting, no abdominal pain or diarrhea. PHYSICAL EXAMINATION: Blood pressure 127/93 with a pulse of 101, temperature 97.7. He is 98% on 2 L nasal cannula. General description is a middle-aged male up in the chair in no distress. RESPIRATORY SYSTEM: Unlabored breathing. Bilateral expiratory wheeze. HEART: S1, S2. Regular rate and rhythm. ABDOMEN: Soft. No tenderness. LABS: Hemoglobin is 12 with a white count 16.7. BUN of 66, creatinine 1.73. DIAGNOSTIC IMPRESSION AND PLAN: Patient admitted to hospital with increasing shortness of breath which is likely related to his underlying chronic obstructive pulmonary disease clinically doubt pneumonia. Currently on empiric antibiotic because of elevated inflammatory markers, though no obvious focus of infection. Continue to monitor the patient closely and continue supportive care. MMODL / IJN: [id number] /
[2019-11-14 06:08] LABS: Glucose,Whole Blood 158 mg/dL (75-99)
[2019-11-14] MEDS: ERYTHROMYCIN 5 MG/GM OPHTH OINT 3.5 GM TUBE BOTH EYES SCH ×4 (06:08→23:19)
[2019-11-14] MEDS: methylPREDNISolone SOD SUCCI 125 MG/2 ML VIAL IV SCH ×4 (06:08→23:19)
[2019-11-14] MEDS: LEVOTHYROXINE 88 MCG TAB PO SCH (06:09)
[2019-11-14] MEDS: INSULIN ASPART (NovoLOG) 100 UNIT/ML VIAL SQ SCH ×4 (06:09→21:11)
[2019-11-14] MEDS: SYMBICORT 160-4.5 MCG INHALER INHALATION SCH ×2 (07:24→20:05)
[2019-11-14] MEDS: TIOTROPIUM 18 MCG/PUFF INHALER INHALATION SCH (07:24)
[2019-11-14] MEDS: ALBUTEROL HFA INHALER INHALATION SCH ×3 (07:24→20:05)
[2019-11-14 08:06] LABS: Calcium 9.5 mg/dL (8.4-10.2); Magnesium 2.4 mg/dL (1.6-2.3); Potassium 4.8 mmol/L (3.5-5.1)
--- NOTE | 2019-11-14 09:07 | P.PN ---
Subjective Patient is seen in follow-up for acute kidney injury. Renal function is stable. Edema is gradually improving. Urine output about 1 L overnight. Vital signs are stable. General: The patient appeared well nourished and normally developed. HEENT: Head exam is unremarkable. Neck is without jugular venous distension. LUNGS: Lungs are clear to auscultation and percussion. Breath sounds decreased. HEART: Rate and Rhythm are regular. ABDOMEN: No distention noted. Nontender. EXTREMITITES: 1+ edema. Objective - Vital Signs Vital signs: Vital Signs Temp 97.9 F 11/14/19 02:49 Pulse 104 H 11/14/19 02:49 Resp 24 11/14/19 02:49 BP 143/83 11/14/19 02:49 Pulse Ox 94 L 11/14/19 02:49 Intake & Output 11/13/19 11/14/19 11/14/19 18:59 06:59 18:59 Intake Total 900 480 Output Total 700 1100 Balance 200 -1100 480 Weight 108 kg Intake: Oral 900 480 Output: Urine 700 1100 Other: Voiding Method Urinal Urinal # Voids 1 1 # Bowel Movements 0 - Labs CBC & Chem 7: 11/13/19 05:36 11/14/19 06:40 Labs: Abnormal Lab Results - Last 24 Hours (Table) 11/13/19 11/13/19 11/13/19 Range/Units 11:48 16:39 20:24 BUN (9-20) mg/dL Creatinine (0.66-1.25) mg/dL Glucose (74-99) mg/dL POC Glucose (mg/dL) 177 H 200 H 186 H (75-99) mg/dL Magnesium (1.6-2.3) mg/dL 11/14/19 11/14/19 Range/Units 06:05 06:40 BUN 69 H (9-20) mg/dL Creatinine 1.67 H (0.66-1.25) mg/dL Glucose 135 H (74-99) mg/dL POC Glucose (mg/dL) 158 H (75-99) mg/dL Magnesium 2.4 H (1.6-2.3) mg/dL Microbiology - Last 24 Hours (Table) 11/10/19 23:16 Blood Culture - Preliminary Blood No Growth after 72 hours Assessment and Plan Plan: Assessment: 1. Acute kidney injury secondary to cardiorenal syndrome. Renal function stable. Creatinine 1.67 today. UA benign. No hydronephrosis noted on kidney ultrasound. No evidence of urinary retention. 2. Hyperkalemia secondary to acute kidney injury and further worsened with the use of potassium supplementation, lisinopril and Aldactone. Better. 3. Volume overload. Improving with diuresis. 4. COPD exacerbation. Plan: Discontinue IV Lasix and start oral Lasix 40 mg twice daily. Avoid nephrotoxins. Follow-up echocardiogram. Repeat electrolytes in the morning. I also advised him to follow a low-salt diet and a 40-50 pounds fluid restriction upon discharge. Also advised him to monitor his weight closely at home.
[2019-11-14] MEDS: clonazePAM 1 MG TAB PO SCH ×2 (09:13→21:11)
[2019-11-14] MEDS: FAMOTIDINE 20 MG TAB PO SCH (09:13)
[2019-11-14] MEDS: FLUTICASONE 50MCG/SPRAY NASAL 16GM EA NOSTRIL SCH (09:14)
[2019-11-14] MEDS: HYDROcodone/APAP 7.5-325MG 1 EACH TAB PO SCH ×4 (09:14→21:11)
[2019-11-14] MEDS: FUROSEMIDE 10 MG/ML 10 ML VIAL IV SCH (09:14)
[2019-11-14] MEDS: MAGNESIUM OXIDE 400 MG TAB PO SCH (09:15)
[2019-11-14] MEDS: LORATADINE 10 MG TAB PO SCH (09:15)
[2019-11-14] MEDS: NICOTINE 14MG/24HR PATCH TRANSDERM SCH (09:16)
[2019-11-14] MEDS: LABETALOL 100 MG TAB PO SCH ×2 (09:19→21:11)
[2019-11-14] MEDS: SODIUM CHLORIDE 0.9% 1,000 ML IV SCH (09:26)
--- NOTE | 2019-11-14 09:52 | ECHOF ---
Referral Reason:sob MEASUREMENTS -------- HEIGHT: 170.2 cm WEIGHT: 108.9 kg BP: 163/84 RVIDd: 3.1 cm (< 3.3) IVSd: 1.3 cm (0.6 - 1.1) LVIDd: 4.6 cm (3.9 - 5.3) LVPWd: 1.4 cm (0.6 - 1.1) IVSs: 1.7 cm LVIDs: 3.5 cm LVPWs: 1.8 cm LA Diam: 3.0 cm (2.7 - 3.8) LAESV Index (A-L): 24.75 ml/m Ao Diam: 3.4 cm (2.0 - 3.7) AV Cusp: 2.3 cm (1.5 - 2.6) MV EXCURSION: 12.148 mm (> 18.000) MV EF SLOPE: 44 mm/s (70 - 150) EPSS: 0.6 cm MV E Tyrone: 1.14 m/s MV DecT: 184 ms MV A Tyrone: 1.08 m/s MV E/A Ratio: 1.05 FINDINGS -------- Sinus rhythm. The left ventricular size is normal. There is moderate concentric left ventricular hypertrophy. O verall left ventricular systolic function is normal with, an EF between 60 - 65 %. The right ventricle is normal in size. Normal LA size by volume 22+/-6 ml/m2. The right atrium is normal in size. 5.0mg of Lumason was utilized for enhancement of images Interatrial and interventricular septum intact. The aortic valve was not well visualized. Mild mitral annular calcification present. The tricuspid valve appears structurally normal. The pulmonic valve was not well visualized. The aortic root size is normal. Normal inferior vena cava with normal inspiratory collapse consistent with estimated right atrial pre ssure of 5 mmHg. Echo free space represents a pericardial fat pad. CONCLUSIONS -------- 1. Sinus rhythm. 2. The left ventricular size is normal. 3. There is moderate concentric left ventricular hypertrophy. 4. Overall left ventricular systolic function is normal with, an EF between 60 - 65 %. 5. The right ventricle is normal in size. 6. Normal LA size by volume 22+/-6 ml/m2. 7. The right atrium is normal in size. 8. 5.0mg of Lumason was utilized for enhancement of images 9. Interatrial and interventricular septum intact. 10. The aortic valve was not well visualized. 11. Mild mitral annular calcification present. 12. The tricuspid valve appears structurally normal. 13. The pulmonic valve was not well visualized. 14. The aortic root size is normal. 15. Normal inferior vena cava with normal inspiratory collapse consistent with estimated right atrial pressure of 5 mmHg. 16. Echo free space represents a pericardial fat pad. [employer]: Char Roman RDCS
--- NOTE | 2019-11-14 11:19 | P.PN ---
Subjective Progress Note Date: 11/14/19 This is a 54-year-old gentleman with history of anxiety, hypertension, hypothyroidism, chronic pain syndrome, obesity, and irritable bowel syndrome, he also has a history of chronic nicotine dependence and COPD for which she follows as an outpatient with Dr. Mendoza. He presented to the hospital with symptoms of progressively worsening shortness of breath. He was seen in consultation yesterday by Dr. Watts. Patient was seen and evaluated this morning by Dr. Watts, he has been on IV Lasix, has been diuresing. Continues to feel quite short of breath this morning, continues to have significant bilateral peripheral edema. Blood pressure 160/80 with a heart rate in the 90s low 100s, 94% on 2 L of oxygen. White blood cell count 16.7, hemoglobin 12.0, platelet count 337. Sodium 138, potassium 5.1, BUN 66, creatinine 1.7, magnesium 2.4. 11/14/2019 Patient was seen and examined this morning, seems to be improving on her daily basis, edema is improving. Blood pressure today 142/80, heart rate 104 we will start the patient on some labetalol 100 mg one tablet by mouth twice a day t patricia. Sodium 137, potassium 4.8, BUN 69 and creatinine 1.6, magnesium 2.4. Echocardiogram with Doppler study reveals a normal left ventricular systolic function. Objective - Vital Signs Vital signs: Vital Signs Temp 97.9 F 11/14/19 02:49 Pulse 104 H 11/14/19 02:49 Resp 24 11/14/19 02:49 BP 143/83 11/14/19 02:49 Pulse Ox 94 L 11/14/19 02:49 Intake & Output 11/13/19 11/14/19 11/14/19 18:59 06:59 18:59 Intake Total 900 480 Output Total 700 1100 Balance 200 -1100 480 Weight 108 kg Intake: Oral 900 480 Output: Urine 700 1100 Other: Voiding Method Urinal Urinal # Voids 1 1 # Bowel Movements 0 - Exam GENERAL EXAM: Alert, pleasant 54-year-old gentleman, on 3 L nasal cannula, comfortable in no apparent distress. HEAD: Normocephalic. EYES: Normal reaction of pupils, equal size. NOSE: Clear with pink turbinates. THROAT: No erythema or exudates. NECK: No masses, no JVD. CHEST: No chest wall deformity. LUNGS: Equal air entry with bilateral diminished air entry to the bases. CVS: S1 and S2 tachycardic with no audible murmur, regular rhythm. ABDOMEN: No hepatosplenomegaly, normal bowel sounds, no guarding or rigidity. SPINE: No scoliosis or deformity SKIN: No rashes CENTRAL NERVOUS SYSTEM: No focal deficits, tone is normal in all 4 extremities. EXTREMITIES: There is 1+-2+ peripheral edema. No clubbing, no cyanosis. Peripheral pulses are intact. - Labs CBC & Chem 7: 11/13/19 05:36 11/14/19 06:40 Labs: Abnormal Lab Results - Last 24 Hours (Table) 11/13/19 11/13/19 11/13/19 Range/Units 11:48 16:39 20:24 BUN (9-20) mg/dL Creatinine (0.66-1.25) mg/dL Glucose (74-99) mg/dL POC Glucose (mg/dL) 177 H 200 H 186 H (75-99) mg/dL Magnesium (1.6-2.3) mg/dL 11/14/19 11/14/19 Range/Units 06:05 06:40 BUN 69 H (9-20) mg/dL Creatinine 1.67 H (0.66-1.25) mg/dL Glucose 135 H (74-99) mg/dL POC Glucose (mg/dL) 158 H (75-99) mg/dL Magnesium 2.4 H (1.6-2.3) mg/dL Microbiology - Last 24 Hours (Table) 11/10/19 23:16 Blood Culture - Preliminary Blood No Growth after 72 hours Assessment and Plan Plan: Assessment and plan: #1 Acute hypoxic respiratory failure secondary to an acute exacerbation of chronic obstructive pulmonary disease, and congestive heart failure. LV function unknown #2 Chronic tobacco dependence recently quit in September 2019. #3 Acute renal failure, secondary to cardiorenal syndrome #4 Hyperkalemia secondary to above along with potassium sparing diuretics and javier inhibitors, improving #5 Obesity #6 Hypothyroidism #7 History of irritable bowel syndrome #8 History of anxiety/depression #9 Hypertension Plan Repeat echocardiogram with Doppler study revealed an ejection fraction of 60- 65%. We will start the patient on by mouth labetalol 100 mg one tablet by mouth twice a day. IV Lasix has been discontinued and patient has been initiated on oral diuretics. DNP note has been reviewed, I agree with a documented findings and plan of care. Patient was seen and examined.
[2019-11-14 11:48] LABS: Glucose,Whole Blood 191 mg/dL (75-99)
--- NOTE | 2019-11-14 13:28 | P.PN ---
Subjective Progress Note Date: 11/14/19 Principal diagnosis: Acute COPD exacerbation This is a very pleasant 54-year-old gentleman who follows with Isabella velazquez PCP. He resides in the [place] area. He has a history of anxiety, hypertension, hypothyroidism, chronic pain syndrome, irritable bowel syndrome, obesity. He also has a history of chronic tobacco dependence and chronic obstructive pulmonary disease and was seen in August [address] Shields at the [facility]. He has an FEV1 value 40% of predicted. He presented here to the hospital yesterday as a transfer from [facility] with complaints of worsening shortness of breath. He is also found to have acute renal failure. He had elevated d-dimer. VQ scan done here revealed in determinant findings. He does have some chronic lower extremity edema. Dopplers were negative for DVT. Chest x-ray revealed no acute pulmonary process. He is seen today in consultation on the selective care unit. He is currently awake and alert in no acute distress. He states he quit smoking on September 14 of this year. He does have a nebulizer at home. He is also maintained on Advair. Presently he sitting up in bed. Awake and alert in no acute distress. He is maintaining O2 saturations in the upper 90s on 3 L/m per nasal cannula. He is afebrile. Slightly tachycardic. Currently on a heparin drip. White count 8.9. Hemoglobin 12.1. Sodium 138. Potassium 6.2. Chloride 109. Creatinine 2.00. Urinalysis clear. He is currently on bronchodilators, Solu- Medrol. The patient is seen today the 2019 in follow-up on the regular medical floor. He is awake and alert in no acute distress. He is maintaining O2 saturations in the 90s on 2 L/m per nasal cannula. Breathing easier today compared to yesterday. Not quite back to his baseline. He is still having some anxiety. He is on Klonopin. Requesting higher levels of NicoDerm patch. White count 15.3. Hemoglobin 11.6. Sodium 138. Potassium 5.5. Creatinine 1.52. Blood culture reveals no growth. He is continued on ceftriaxone, Symbicort, Spiriva, albuterol, IV Solu-Medrol. He is also on IV diuretics. Reevaluated today on 4/29/20, patient is doing better, breathing easier, less cough and less wheezing less shortness of breath. Patient is fully optimized for his underlying COPD, and he is on proper bronchodilators and steroids. Patient was seen by nephrology, and he was diuresed. Significant amount of urine was noted over the last 24 hours. Creatinine today is 1.73, it was 3.36 on admission. BUN is 66 and it was 56 on admission. Clinically the patient is feeling better, breathing easier. CT of the chest on admission showed no evidence of pneumonia, it did show however moderate emphysema and there was no evidence of acute pulmonary process, On 11/14/2019 patient seen in follow-up on selective care unit, his breathing is improving, he is satting 98% on 2 L, wearing her oxygen intermittently, he is afebrile, hemodynamically stable, lower extremity edema is improving, his been diuresed, he is in -3405 ML fluid balance over the last 24 hours, overall he is -5 kg since admission. Breathing much easier, complaints of chest pain. Kevin purcell's labs have been reviewed, electrolytes within normal limits, slight improvement patient's creatinine, BUN 69, creatinine is 1.67. She is following, patient has been transitioned to oral Lasix. Objective - Vital Signs Vital signs: Vital Signs Temp 97.7 F 11/14/19 09:05 Pulse 107 H 11/14/19 09:05 Resp 22 11/14/19 09:05 BP 148/92 11/14/19 09:05 Pulse Ox 98 11/14/19 09:05 Intake & Output 11/13/19 11/14/19 11/14/19 18:59 06:59 18:59 Intake Total 900 480 Output Total 700 1100 Balance 200 -1100 480 Weight 108 kg Intake: Oral 900 480 Output: Urine 700 1100 Other: Voiding Method Urinal Urinal Urinal # Voids 1 1 # Bowel Movements 0 - Exam GENERAL EXAM: Alert, very pleasant, 54-year-old white male, on 2 L of oxygen pulse ox of 98%, comfortable in no apparent distress. HEAD: Normocephalic/atraumatic. EYES: Normal reaction of pupils, equal size. Conjunctiva pink, sclera white. NOSE: Clear with pink turbinates. THROAT: No erythema or exudates. NECK: No masses, no JVD, no thyroid enlargement, no adenopathy. CHEST: No chest wall deformity. Symmetrical expansion. LUNGS: Equal air entry with no crackles, wheeze, rhonchi or dullness. CVS: Regular rate and rhythm, normal S1 and S2, no gallops, no murmurs, no rubs ABDOMEN: Soft, nontender. No hepatosplenomegaly, normal bowel sounds, no guarding or rigidity. EXTREMITIES: No clubbing, mild lower extremity edema with chronic venous stasis changes present no cyanosis, 2+ pulses and upper and lower extremities. MUSCULOSKELETAL: Muscle strength and tone normal. SPINE: No scoliosis or deformity SKIN: No rashes CENTRAL NERVOUS SYSTEM: Alert and oriented -3. No focal deficits, tone is normal in all 4 extremities. PSYCHIATRIC: Alert and oriented -3. Appropriate affect. Intact judgment and insight. - Labs CBC & Chem 7: 11/13/19 05:36 11/14/19 06:40 Labs: Abnormal Lab Results - Last 24 Hours (Table) 11/13/19 11/13/19 11/14/19 Range/Units 16:39 20:24 06:05 BUN (9-20) mg/dL Creatinine (0.66-1.25) mg/dL Glucose (74-99) mg/dL POC Glucose (mg/dL) 200 H 186 H 158 H (75-99) mg/dL Magnesium (1.6-2.3) mg/dL 11/14/19 11/14/19 Range/Units 06:40 11:46 BUN 69 H (9-20) mg/dL Creatinine 1.67 H (0.66-1.25) mg/dL Glucose 135 H (74-99) mg/dL POC Glucose (mg/dL) 191 H (75-99) mg/dL Magnesium 2.4 H (1.6-2.3) mg/dL Microbiology - Last 24 Hours (Table) 11/10/19 23:16 Blood Culture - Preliminary Blood No Growth after 72 hours Assessment and Plan Plan: Assessment: Acute on chronic hypoxic respiratory failure secondary to acute exacerbation of COPD Acute renal failure, suspect prerenal azotemia, being addressed by nephrology Obesity Chronic hypoxic respiratory failure, patient is O2 dependent on 2 L at home. History of hypothyroidism History of irritable bowel syndrome Generalized anxiety disorder History of hypertension Plan: Continue current medical treatment, patient has been diuresed, he is maintaining negative fluid balance, breathing easier, less dyspneic and bronchospastic, could be considered for discharge home today if cleared by the primary care team. Stable for discharge from pulmonary perspective on prednisone taper, oral Lasix and Spiriva, Symbicort and albuterol inhalers. He can resume his home updrafts at home, he will need outpatient follow-up with Dr. Willard in [place] I performed a history & physical examination of the patient and discussed their management with my nurse practitioner, Mary Sellers. I reviewed the nurse practitioner's note and agree with the documented findings and plan of care. Lung sounds are positive for clear breath sounds The findings and the impressio n was discussed with the patient. I attest to the documentation by the nurse practitioner. Time with Patient: Less than 30
--- NOTE | 2019-11-14 16:24 | PN ---
PROGRESS NOTE DATE OF SERVICE: 11/14/2019 This is a 54-year-old gentleman admitted with COPD acute exacerbation, also had multiple medical issues. The patient is still short of breath. The CT scan of the chest showed only 5 cm right mid lung opacity. The patient was seen by multiple consultants including Dr. Shields, who is recommending optimize COPD treatment. Otherwise, cardiology also has seen the patient and Nephrology has seen the patient and recommended continue with the p.o. Lasix at this time. The patient still has significant shortness of breath. PAST MEDICAL HISTORY: Reviewed. REVIEW OF SYSTEMS: CARDIOVASCULAR SYSTEM: No angina. RESPIRATORY: As mentioned earlier. GI: As mentioned earlier. : No dysuria. NERVOUS SYSTEM: No numbness or weakness. CURRENT MEDICATIONS: Reviewed and include: 1. [place] 7.5 q.i.d. p.r.n. 2. Ventolin p.r.n. 3. Symbicort 160/4.5 two puffs b.i.d. 4. Rocephin 1 g daily. 5. Klonopin 1 mg b.i.d. 6. Vitamin D2 fifty thousand p.o. Monday. 8. Pepcid 20 mg p.o. daily. 9. Flonase. 10.Lasix 40 mg p.o. b.i.d. 11.Trandate. 12.Synthroid. 13.Claritin 10 mg p.o. daily. 14.Magnesium oxide 400 mg p.o. daily. 15.Solu-Medrol 60 IV q.6. 16.Habitrol 14 daily. 17.Spiriva 1 puff daily. 18.Desyrel 50 mg p.o. q.h.s. PHYSICAL EXAM: Patient is alert, oriented x3. Pulse is 107, blood pressure 140/92, respiration 18, temperature 97.7, pulse ox 98% on 2 L. HEENT: Conjunctivae normal. Oral mucosa moist. NECK: No jugular venous distention. No lymph node enlargement. CARDIOVASCULAR SYSTEM: S1, S2, muffled. RESPIRATION: Breath sounds diminished at the bases, a few scattered rhonchi, no crackles. ABDOMEN: Soft, obese. LEGS: Minimal edema. NERVOUS SYSTEM: Diffusely weak. LABS: Creatinine 1.67 and magnesium 2.4. ASSESSMENT: 1. Chronic obstructive pulmonary disease acute exacerbation with acute purulent tracheobronchitis, present on admission with acute hypoxic respiratory failure. 2. Suspected COVID-19; however, test was negative, could be false negative. 3. History of nicotine dependence. 4. Acute renal failure, prerenal renal failure with acute tubular necrosis. 5. Hyperkalemia secondary to acute renal failure. 6. Anemia, normocytic anemia of chronic disease. 7. Gait dysfunction. 8. History of congestive heart failure, ejection fraction unknown. 9. Hypertension. 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 However, CT scan of chest only showed 5 mm right pulmonary nodule to be followed up in the outpatient setting and also with pulmonary, Dr. Shields. 11.History of left testicular growth and removal. 12.History of anxiety. 13.Remote history of nicotine dependence. 14.Obesity with body mass index of 38.8. 15.FULL CODE. RECOMMENDATION: Recommend to continue current management. Continue with the symptomatic treatment. Continue with the diuretics. Continue with the bronchodilators. Continue with the rest of medications. PT, OT evaluation, increase ambulation. Otherwise, if the patient is doing great, patient might be able to go home but; however, will repeat the labs tomorrow. Further recommendations to follow. MMODL / IJN: [id number] / SERGEY
[2019-11-14] MEDS: FUROSEMIDE 40 MG TAB PO SCH (17:58)
--- NOTE | 2019-11-14 18:09 | PN ---
PROGRESS NOTE DATE OF SERVICE: 11/14/2019 REASON FOR FOLLOWUP: Tracheobronchitis, question of pneumonia. INTERVAL HISTORY: The patient is currently afebrile. The patient has been breathing more comfortably. Denies having any chest pain. Some cough. No sputum, abdominal pain or diarrhea. PHYSICAL EXAMINATION: Blood pressure 148/92 with a pulse of 107, temperature 97.7. He is 98% on 2 L nasal cannula. General description is a middle-aged male up in the bed in no distress. RESPIRATORY SYSTEM: Unlabored breathing. Occasional wheeze. HEART: S1, S2. Regular rate and rhythm. ABDOMEN: Soft. No tenderness. LABS: No CBC was done. Creatinine is 1.67. Blood culture has been negative. Sputum not collected. DIAGNOSTIC IMPRESSION AND PLAN: Patient admitted to hospital with increasing shortness of breath, more likely secondary to chronic obstructive pulmonary disease exacerbation than tracheobronchitis. Clinical suspicion for underlying pneumonia. Did have elevated inflammatory markers, for which he has been on antibiotic; to continue while waiting for the culture to finalize and monitor clinical course closely. MMODL / IJN: [id number] /
[2019-11-14] MEDS: traZODone HCL 50 MG TAB PO SCH (21:11)
[2019-11-15] MEDS: ERYTHROMYCIN 5 MG/GM OPHTH OINT 3.5 GM TUBE BOTH EYES SCH ×2 (06:28→12:33)
[2019-11-15] MEDS: methylPREDNISolone SOD SUCCI 125 MG/2 ML VIAL IV SCH ×2 (06:28→12:29)
[2019-11-15] MEDS: LEVOTHYROXINE 88 MCG TAB PO SCH (06:28)
[2019-11-15] MEDS: INSULIN ASPART (NovoLOG) 100 UNIT/ML VIAL SQ SCH ×2 (06:28→12:30)
[2019-11-15 06:48] VITALS: TEMP 98
[2019-11-15 07:50] LABS: Glucose,Whole Blood 157 mg/dL (75-99)
[2019-11-15 07:56] LABS: Calcium 9.8 mg/dL (8.4-10.2); Magnesium 2.6 mg/dL (1.6-2.3)
[2019-11-15 08:03] LABS: Glucose,Whole Blood 197 mg/dL (75-99)
[2019-11-15 08:03] LABS: Glucose,Whole Blood 132 mg/dL (75-99)
[2019-11-15] MEDS: SYMBICORT 160-4.5 MCG INHALER INHALATION SCH (08:54)
[2019-11-15] MEDS: ALBUTEROL HFA INHALER INHALATION SCH ×2 (08:54→12:23)
[2019-11-15] MEDS: TIOTROPIUM 18 MCG/PUFF INHALER INHALATION SCH ×2 (08:55→12:23)
[2019-11-15] MEDS ORDERED: VITAMIN D3 50000 UNIT PO SCH (09:00)
[2019-11-15] MEDS ORDERED: ERGOCALCIFEROL 50,000 UNIT CAP PO SCH (09:00)
[2019-11-15] MEDS: MAGNESIUM OXIDE 400 MG TAB PO SCH (10:22)
[2019-11-15] MEDS: LORATADINE 10 MG TAB PO SCH (10:22)
[2019-11-15] MEDS: clonazePAM 1 MG TAB PO SCH (10:23)
[2019-11-15] MEDS: FUROSEMIDE 40 MG TAB PO SCH (10:23)
[2019-11-15] MEDS: FAMOTIDINE 20 MG TAB PO SCH (10:23)
--- NOTE | 2019-11-15 10:23 | P.PN ---
Subjective Progress Note Date: 11/15/19 This is a 54-year-old gentleman with history of anxiety, hypertension, hypothyroidism, chronic pain syndrome, obesity, and irritable bowel syndrome, he also has a history of chronic nicotine dependence and COPD for which she follows as an outpatient with Dr. Mendoza. He presented to the hospital with symptoms of progressively worsening shortness of breath. He was seen in consultation yesterday by Dr. Watts. Patient was seen and evaluated this morning by Dr. Watts, he has been on IV Lasix, has been diuresing. Continues to feel quite short of breath this morning, continues to have significant bilateral peripheral edema. Blood pressure 160/80 with a heart rate in the 90s low 100s, 94% on 2 L of oxygen. White blood cell count 16.7, hemoglobin 12.0, platelet count 337. Sodium 138, potassium 5.1, BUN 66, creatinine 1.7, magnesium 2.4. 11/14/2019 Patient was seen and examined this morning, seems to be improving on her daily basis, edema is improving. Blood pressure today 142/80, heart rate 104 we will start the patient on some labetalol 100 mg one tablet by mouth twice a day t patricia. Sodium 137, potassium 4.8, BUN 69 and creatinine 1.6, magnesium 2.4. Echocardiogram with Doppler study reveals a normal left ventricular systolic function. 11/15/2019 Patient was seen and examined this morning by Dr. Watts, overall feeling much better from a breathing perspective today. Continues to have some bilateral edema, heart rate continues to be in the low 100s. Blood pressure 140/60, 95% on 2 L of oxygen. Sodium 136, potassium 5.0, BUN 70, creatinine 1.5, magnesium 2.6. Objective - Vital Signs Vital signs: Vital Signs Temp 98 F 11/15/19 04:00 Pulse 106 H 11/15/19 04:00 Resp 19 11/15/19 08:00 BP 140/65 11/15/19 04:00 Pulse Ox 95 11/15/19 04:00 Intake & Output 11/14/19 11/15/19 11/15/19 18:59 06:59 18:59 Intake Total 1200 Output Total 875 775 Balance 325 -775 Weight 108.6 kg Intake: Oral 1200 Output: Urine 875 775 Other: Voiding Method Urinal Urinal Urinal - Exam GENERAL EXAM: Alert, pleasant 54-year-old gentleman, on 3 L nasal cannula, comfortable in no apparent distress. HEAD: Normocephalic. EYES: Normal reaction of pupils, equal size. NOSE: Clear with pink turbinates. THROAT: No erythema or exudates. NECK: No masses, no JVD. CHEST: No chest wall deformity. LUNGS: Equal air entry with bilateral diminished air entry to the bases. CVS: S1 and S2 tachycardic with no audible murmur, regular rhythm. ABDOMEN: No hepatosplenomegaly, normal bowel sounds, no guarding or rigidity. SPINE: No scoliosis or deformity SKIN: No rashes CENTRAL NERVOUS SYSTEM: No focal deficits, tone is normal in all 4 extremities. EXTREMITIES: There is 1+ peripheral edema. No clubbing, no cyanosis. Periph eral pulses are intact. Plan From cardiology's perspective, we will increase labetalol to 200 mg one tablet by mouth twice a day. The patient may be able to be discharged home from our perspective today. Follow-up appointment with Dr. Rae in the office post discharge. DNP note has been reviewed, I agree with a documented findings and plan of care. Patient was seen and examined. - Labs CBC & Chem 7: 11/13/19 05:36 11/15/19 06:45 Labs: Abnormal Lab Results - Last 24 Hours (Table) 11/14/19 11/14/19 11/14/19 Range/Units 11:46 16:49 20:22 Sodium (137-145) mmol/L Chloride (98-107) mmol/L Carbon Dioxide (22-30) mmol/L BUN (9-20) mg/dL Creatinine (0.66-1.25) mg/dL Glucose (74-99) mg/dL POC Glucose (mg/dL) 191 H 132 H 197 H (75-99) mg/dL Magnesium (1.6-2.3) mg/dL 11/15/19 11/15/19 Range/Units 06:09 06:45 Sodium 136 L (137-145) mmol/L Chloride 96 L (98-107) mmol/L Carbon Dioxide 31 H (22-30) mmol/L BUN 70 H (9-20) mg/dL Creatinine 1.56 H (0.66-1.25) mg/dL Glucose 143 H (74-99) mg/dL POC Glucose (mg/dL) 157 H (75-99) mg/dL Magnesium 2.6 H (1.6-2.3) mg/dL Microbiology - Last 24 Hours (Table) 11/10/19 23:16 Blood Culture - Preliminary Blood No Growth after 96 hours
[2019-11-15] MEDS: NICOTINE 14MG/24HR PATCH TRANSDERM SCH (10:24)
[2019-11-15] MEDS: HYDROcodone/APAP 7.5-325MG 1 EACH TAB PO SCH (10:24)
[2019-11-15] MEDS: FLUTICASONE 50MCG/SPRAY NASAL 16GM EA NOSTRIL SCH (10:29)
[2019-11-15 11:25] VITALS: BMI 37.5
[2019-11-15 11:36] VITALS: BP 160/95; PULSE 109; RESP 20
[2019-11-15 11:44] LABS: Glucose,Whole Blood 158 mg/dL (75-99)
[2019-11-15] MEDS: SODIUM CHLORIDE 0.9% 1,000 ML IV SCH (12:22)
--- NOTE | 2019-11-15 12:29 | P.PN ---
Subjective Patient is seen in follow-up for acute kidney injury. Renal function is stable. Edema is gradually improving. Overall feels better. No active complaints. Vital signs are stable. General: The patient appeared well nourished and normally developed. HEENT: Head exam is unremarkable. Neck is without jugular venous distension. LUNGS: Lungs are clear to auscultation and percussion. Breath sounds decreased. HEART: Rate and Rhythm are regular. ABDOMEN: No distention noted. Nontender. EXTREMITITES: 1+ edema. Objective - Vital Signs Vital signs: Vital Signs Temp 98 F 11/15/19 04:00 Pulse 109 H 11/15/19 08:00 Resp 20 11/15/19 08:00 BP 160/95 11/15/19 08:00 Pulse Ox 98 11/15/19 08:00 Intake & Output 11/14/19 11/15/19 11/15/19 18:59 06:59 18:59 Intake Total 1200 Output Total 875 775 Balance 325 -775 Weight 108.6 kg 108.6 kg Intake: Oral 1200 Output: Urine 875 775 Other: Voiding Method Urinal Urinal Urinal - Labs CBC & Chem 7: 11/13/19 05:36 11/15/19 06:45 Labs: Abnormal Lab Results - Last 24 Hours (Table) 11/14/19 11/14/19 11/15/19 Range/Units 16:49 20:22 06:09 Sodium (137-145) mmol/L Chloride (98-107) mmol/L Carbon Dioxide (22-30) mmol/L BUN (9-20) mg/dL Creatinine (0.66-1.25) mg/dL Glucose (74-99) mg/dL POC Glucose (mg/dL) 132 H 197 H 157 H (75-99) mg/dL Magnesium (1.6-2.3) mg/dL 11/15/19 11/15/19 Range/Units 06:45 11:42 Sodium 136 L (137-145) mmol/L Chloride 96 L (98-107) mmol/L Carbon Dioxide 31 H (22-30) mmol/L BUN 70 H (9-20) mg/dL Creatinine 1.56 H (0.66-1.25) mg/dL Glucose 143 H (74-99) mg/dL POC Glucose (mg/dL) 158 H (75-99) mg/dL Magnesium 2.6 H (1.6-2.3) mg/dL Microbiology - Last 24 Hours (Table) 11/10/19 23:16 Blood Culture - Preliminary Blood No Growth after 96 hours Assessment and Plan Plan: Assessment: 1. Acute kidney injury secondary to cardiorenal syndrome. Renal function stable. Creatinine 1.56 today. UA benign. No hydronephrosis noted on kidney ultrasound. No evidence of urinary retention. 2. Hyperkalemia secondary to acute kidney injury and further worsened with the use of potassium supplementation, lisinopril and Aldactone. Better. 3. Volume overload. Improving with diuresis. 4. COPD exacerbation. 5. Acute diastolic CHF. Plan: Maintain Lasix 40 mg twice daily. Avoid nephrotoxins. Repeat electrolytes in the morning. I also advised him to follow a low-salt diet and a 40-50 pounds fluid restriction upon discharge. Also advised him to monitor his weight closely at home. Stable to be discharged home from nephrology standpoint. Follow up outpatient in 1-2 weeks.
--- NOTE | 2019-11-15 12:38 | P.PN ---
Subjective Progress Note Date: 11/15/19 Principal diagnosis: Acute COPD exacerbation This is a very pleasant 54-year-old gentleman who follows with Isabella velazquez PCP. He resides in the [place] area. He has a history of anxiety, hypertension, hypothyroidism, chronic pain syndrome, irritable bowel syndrome, obesity. He also has a history of chronic tobacco dependence and chronic obstructive pulmonary disease and was seen in August [address] Shields at the [facility]. He has an FEV1 value 40% of predicted. He presented here to the hospital yesterday as a transfer from [facility] with complaints of worsening shortness of breath. He is also found to have acute renal failure. He had elevated d-dimer. VQ scan done here revealed in determinant findings. He does have some chronic lower extremity edema. Dopplers were negative for DVT. Chest x-ray revealed no acute pulmonary process. He is seen today in consultation on the selective care unit. He is currently awake and alert in no acute distress. He states he quit smoking on September 14 of this year. He does have a nebulizer at home. He is also maintained on Advair. Presently he sitting up in bed. Awake and alert in no acute distress. He is maintaining O2 saturations in the upper 90s on 3 L/m per nasal cannula. He is afebrile. Slightly tachycardic. Currently on a heparin drip. White count 8.9. Hemoglobin 12.1. Sodium 138. Potassium 6.2. Chloride 109. Creatinine 2.00. Urinalysis clear. He is currently on bronchodilators, Solu- Medrol. The patient is seen today the 2019 in follow-up on the regular medical floor. He is awake and alert in no acute distress. He is maintaining O2 saturations in the 90s on 2 L/m per nasal cannula. Breathing easier today compared to yesterday. Not quite back to his baseline. He is still having some anxiety. He is on Klonopin. Requesting higher levels of NicoDerm patch. White count 15.3. Hemoglobin 11.6. Sodium 138. Potassium 5.5. Creatinine 1.52. Blood culture reveals no growth. He is continued on ceftriaxone, Symbicort, Spiriva, albuterol, IV Solu-Medrol. He is also on IV diuretics. Reevaluated today on 4/29/20, patient is doing better, breathing easier, less cough and less wheezing less shortness of breath. Patient is fully optimized for his underlying COPD, and he is on proper bronchodilators and steroids. Patient was seen by nephrology, and he was diuresed. Significant amount of urine was noted over the last 24 hours. Creatinine today is 1.73, it was 3.36 on admission. BUN is 66 and it was 56 on admission. Clinically the patient is feeling better, breathing easier. CT of the chest on admission showed no evidence of pneumonia, it did show however moderate emphysema and there was no evidence of acute pulmonary process, On 11/14/2019 patient seen in follow-up on selective care unit, his breathing is improving, he is satting 98% on 2 L, wearing her oxygen intermittently, he is afebrile, hemodynamically stable, lower extremity edema is improving, his been diuresed, he is in -3405 ML fluid balance over the last 24 hours, overall he is -5 kg since admission. Breathing much easier, complaints of chest pain. Kevin purcell's labs have been reviewed, electrolytes within normal limits, slight improvement patient's creatinine, BUN 69, creatinine is 1.67. She is following, patient has been transitioned to oral Lasix. On 11/15/2019 patient seen in follow-up on selective care unit, he is calm and comfortable, in no acute distress, he is on 2 L of oxygen and the pulse ox 95- 98%, afebrile, hemodynamically stable, his lower extremity edema is improving, breathing is improving, patient has been diuresed, -450 ML fluid balance over the last 24 hours, he is tolerating ambulation, vital signs are stable, no fever or chills. Blood cultures negative. Possible discharge home today Objective - Vital Signs Vital signs: Vital Signs Temp 98 F 11/15/19 04:00 Pulse 109 H 11/15/19 08:00 Resp 20 11/15/19 08:00 BP 160/95 11/15/19 08:00 Pulse Ox 98 11/15/19 08:00 Intake & Output 11/14/19 11/15/19 11/15/19 18:59 06:59 18:59 Intake Total 1200 Output Total 875 775 Balance 325 -775 Weight 108.6 kg 108.6 kg Intake: Oral 1200 Output: Urine 875 775 Other: Voiding Method Urinal Urinal Urinal - Exam GENERAL EXAM: Alert, very pleasant, 54-year-old white male, on 2 L of oxygen pulse ox of 98%, comfortable in no apparent distress. HEAD: Normocephalic/atraumatic. EYES: Normal reaction of pupils, equal size. Conjunctiva pink, sclera white. NOSE: Clear with pink turbinates. THROAT: No erythema or exudates. NECK: No masses, no JVD, no thyroid enlargement, no adenopathy. CHEST: No chest wall deformity. Symmetrical expansion. LUNGS: Equal air entry with no crackles, wheeze, rhonchi or dullness. CVS: Regular rate and rhythm, normal S1 and S2, no gallops, no murmurs, no rubs ABDOMEN: Soft, nontender. No hepatosplenomegaly, normal bowel sounds, no g uarding or rigidity. EXTREMITIES: No clubbing, mild lower extremity edema with chronic venous stasis changes present no cyanosis, 2+ pulses and upper and lower extremities. MUSCULOSKELETAL: Muscle strength and tone normal. SPINE: No scoliosis or deformity SKIN: No rashes CENTRAL NERVOUS SYSTEM: Alert and oriented -3. No focal deficits, tone is normal in all 4 extremities. PSYCHIATRIC: Alert and oriented -3. Appropriate affect. Intact judgment and insight. - Labs CBC & Chem 7: 11/13/19 05:36 11/15/19 06:45 Labs: Abnormal Lab Results - Last 24 Hours (Table) 11/14/19 11/14/19 11/15/19 Range/Units 16:49 20:22 06:09 Sodium (137-145) mmol/L Chloride (98-107) mmol/L Carbon Dioxide (22-30) mmol/L BUN (9-20) mg/dL Creatinine (0.66-1.25) mg/dL Glucose (74-99) mg/dL POC Glucose (mg/dL) 132 H 197 H 157 H (75-99) mg/dL Magnesium (1.6-2.3) mg/dL 11/15/19 11/15/19 Range/Units 06:45 11:42 Sodium 136 L (137-145) mmol/L Chloride 96 L (98-107) mmol/L Carbon Dioxide 31 H (22-30) mmol/L BUN 70 H (9-20) mg/dL Creatinine 1.56 H (0.66-1.25) mg/dL Glucose 143 H (74-99) mg/dL POC Glucose (mg/dL) 158 H (75-99) mg/dL Magnesium 2.6 H (1.6-2.3) mg/dL Microbiology - Last 24 Hours (Table) 11/10/19 23:16 Blood Culture - Preliminary Blood No Growth after 96 hours Assessment and Plan Plan: Assessment: Acute on chronic hypoxic respiratory failure secondary to acute exacerbation of COPD Acute renal failure, suspect prerenal azotemia, being addressed by nephrology Obesity Chronic hypoxic respiratory failure, patient is O2 dependent on 2 L at home. History of hypothyroidism History of irritable bowel syndrome Generalized anxiety disorder History of hypertension Plan: Patient is doing well, no acute events overnight, breathing continues to improve, he is on 2 L, maintaining stable oxygenation, tolerating ambulation, lower extremity edema has improved, patient has been transitioned to oral Lasix, possible discharge today. Follow-up with Dr. Willard at the [facility] I performed a history & physical examination of the patient and discussed their management with my nurse practitioner, Mary Sellers. I reviewed the nurse practitioner's note and agree with the documented findings and plan of care. Lung sounds are positive for clear breath sounds The findings and the impression was discussed with the patient. I attest to the documentation by the nurse practitioner. Time with Patient: Less than 30
--- NOTE | 2019-11-15 15:39 | P.PN ---
Progress Note - Text Progress Note Date: 11/15/19 REASON FOR FOLLOWUP: Tracheobronchitis, question of pneumonia. INTERVAL HISTORY: The patient remains to be afebrile. The patient is breathing more comfortably. Denies having any chest pain. Some cough. No sputum, abdominal pain or diarrhea. PHYSICAL EXAMINATION: Blood pressure 160/95 with a pulse of 109, temperature 97.7. He is 98% on 2 L nasal cannula. General description is a middle-aged male up in the bed in no distress. RESPIRATORY SYSTEM: Unlabored breathing. Occasional wheeze. HEART: S1, S2. Regular rate and rhythm. ABDOMEN: Soft. No tenderness. LABS: Reviewed DIAGNOSTIC IMPRESSION AND PLAN: Patient admitted to hospital with increasing shortness of breath, more likely secondary to chronic obstructive pulmonary disease exacerbation and tracheobronchitis. Clinical suspicion for underlying pneumonia. Patient did have overall improvement IV Rocephin To finish therapy with a short course of oral Ceftin
--- NOTE | 2019-11-15 18:45 | DS ---
DISCHARGE SUMMARY DATE OF SERVICE: 11/15/2019 FINAL DIAGNOSES: 1. Chronic obstructive pulmonary disease, acute exacerbation, with acute purulent tracheobronchitis, present on admission with acute hypoxic respiratory failure. 2. Suspected COVID-19 clinically possible; however, test was negative; could be false negative. 3. History of nicotine dependence. 4. Acute renal failure, prerenal renal failure with acute tubular necrosis. 5. Hyperkalemia secondary to renal failure. 6. Anemia, normocytic anemia of chronic disease. 7. Gait dysfunction. 8. History of congestive heart failure with chronic diastolic dysfunction, ejection fraction 60% to 65%. 9. Hypertension. 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 However, CT scan of the chest showed only 5 mm right pulmonary nodule, to be followed up in the outpatient setting with primary as well as pulmonary Dr. Shields. 11.History of left testicular growth and removal. 12.History of anxiety. 13.Remote history of nicotine dependence. 14.Obesity with body mass index of 38.8. 15.Chronic hypoxic respiratory failure, on home oxygen at 2 L. 16.FULL CODE. DISCHARGE DISPOSITION: The patient will be discharged in stable condition with guarded prognosis. Total time taken 35 minutes. HISTORY OF PRESENT ILLNESS: This 54-year-old gentleman with a past medical history of multiple medical problems was admitted with multiple medical issues, as mentioned earlier. Patient was treated symptomatically and the patient was seen by multiple consultants. Patient improved significantly. Patient was given diuretics and antibiotics. Creatinine is stable at 1.56. Potassium improved to 5. On exam, vitals are stable. CARDIOVASCULAR SYSTEM: S1, S2 muffled. ABDOMEN: Soft. NERVOUS SYSTEM: No focal deficit. The patient was recommended followup in the outpatient setting. Total time taken 35 minutes. DISCHARGE ADVICE AND MEDICATIONS: 1. Diet is cardiac. 2. Activity limited until followup. 3. Follow up with Dr. Colton Garner in 1-2 days. 4. Follow up with Dr. Rae as recommended. 5. Follow up with Nephrology and Dr. Shields as recommended for continued followup. 6. Continue with the home oxygen. 7. Advair 1 puff b.i.d. 8. Albuterol Atrovent updrafts q.i.d. and p.r.n. 9. Flonase 1 spray daily. 10.Habitrol 7 daily. 11.Klonopin 1 mg p.o. b.i.d. 12.Levothyroxine 18 mcg p.o. daily. 13.Magnesium oxide 400 mg p.o. daily. 14.Bruin 7.5 mg p.o. q.i.d. p.r.n. 15.Protonix 40 mg p.o. daily. 16.Trazodone 50 mg p.o. at bedtime. 17.Albuterol 2 puffs q.6 p.r.n. 18.Vitamin D3 50,000 p.o. Monday. 19.Zyrtec 10 mg p.o. daily. 20.Ceftin 500 mg p.o. b.i.d. for 3 days. 21.Lasix 40 mg p.o. b.i.d. Increased dose to be followed up in the outpatient setting. 22.Prednisone taper 40 mg daily for 3 days, 30 mg daily for 3 days, 20 mg daily for 3 days, 10 mg daily for 3 days. 23.Labetalol 200 mg p.o. b.i.d. Once again, the patient will be discharged in stable condition with guarded prognosis. MMODL / IJN: [id number] /
[2019-11-15] MEDS ORDERED: LABETALOL 200 MG TAB PO SCH (21:00)
--- NOTE | 2019-11-20 07:51 | CDI ---
Documentation Clarification Form Date: 11/20/2019 07:49:29 AM From: Meaghan Ferguson CCS, CCDS Admit Date: 11/10/2019 01:57:00 PM Patient Name: Tyler Salmeron Visit Number: [id number] Discharge Date: 11/15/2019 03:15:00 PM ATTENTION: The Clinical Documentation Specialists (CDI) and [facility] Coding Staff appreciate your assistance in clarifying documentation. Please respond to the clarification below the line at the bottom and electronically sign. The CDI & [facility] Coding staff will review the response and follow-up if needed. Please note: Queries are made part of the Legal Health Record. If you have any questions, please contact the author of this message via ITS. Dr. Angela Lawson: Per the 11/14 Discharge Summary: "Suspected COVID-19 clinically possible; however, test was negative; could be false negative." Patient history/risk factors: COPD, Former smoker, Normocytic anemia of chronic disease, Chronic diastolic CHF & Hypertension. Clinical Indicators: Diagnosed with Acute Exacerbation COPD with Acute Tracheobronchitis, Acute Hypoxic Respiratory Failure & Acute on Chronic Diastolic Heart Failure. VS: T 98.9, P 121^, R 24^ (sob, labored), BP 128/61, PO 100 2Lnc CXR: 11/10: No acute cardiopulmonary process. 11/10 CT Chest: COPD with mild- moderate emphysema, 5mm right mid lung pulmonary nodule. No acute pulmonary process seen. Labs 11/09: Hgb 11.3*, APTT 168.2^^, BUN 56^, Cr 3.36^, Gluc 103^, Lactic Acid 2.2^^, ALT 57^, Lactate Dehydrogenase 1020^, CRP 37.5^, BNP 64. 11/09 COVID-19: Negative. Treatment (11/09): INH Albuterol, IV Heparin, IV Dilaudid, IV Solumedrol, (11/10): IV Insulin, IV Lasix , IV Rocephin, Consult: Nephrology: SHERIDAN, Hyperkalemia & Volume overload, Acute diastolic CHF. Pulmonary: Acute hypoxic respiratory failure secondary to acute exacerbation COPD. Infectious disease: Tracheobronchitis, Elevated C-reactive protein. In order to capture the severity of condition, please clarify if the above treatment/clinical indicators signify: COVID-19 Suspected COVID-19 ruled out Other, please specify Unable to determine (Last Form Revision: September 2019) COVID-19 Suspected MTDD
--- NOTE | 2019-11-22 08:45 | CDI ---
Documentation Clarification Form Date: 11/22/2019 08:18:04 AM From: Meaghan Ferguson CCS, CCDS Admit Date: 11/10/2019 01:57:00 PM Patient Name: Tyler Salmeron Visit Number: [id number] Discharge Date: 11/15/2019 03:15:00 PM ATTENTION: The Clinical Documentation Specialists (CDI) and [facility] Coding Staff appreciate your assistance in clarifying documentation. Please respond to the clarification below the line at the bottom and electronically sign. The CDI & [facility] Coding staff will review the response and follow-up if needed. Please note: Queries are made part of the Legal Health Record. If you have any questions, please contact the author of this message via ITS. Dr. Angela Lawson: This is a clarification of the previous query submitted regarding the patient's possible false negative COVID test result. The COVID-19 test obtained on 11/10/2019 was reported as "Suspected COVID-19 clinically possible; however, test was negative; could be false negative." in the 11/15/2019 Discharge Summary. Patient history/risk factors: COPD, Heart Failure, Hypertension, Sleep Apnea, uses NSAIDs for chronic back & neck pain, Anxiety, Home O2 dependent 2Lnc & Former Smoker Clinical Indicators: Transferred from [facility] 11/09 with SOB via EMS for eval of elev D-dimer & acute renal failure. Had mild cough & chronic lower extremity edema. CXR 11/10: No acute cardiopulmonary process. Ct scan Chest: COPD with mild-moderate emphysema. 5 mm right mid lung pulmonary nodule. VS in ED Triage 11/09: : T 98.9; P 121^; R 24 (sob, labored); BP 128/61; PO 100 2L nc LAB 11/09: WBC (9.3), Cl 108^, Lactic Acid 2.2^^ COVID-19 11/09: Not detected Pulmonary consult 11/10 for dyspnea, SOB, cough & congestion. Assessment: Acute hypoxic respiratory failure secondary to an acute exacerbation of COPD. Chronic tobacco dependence recently quit in September 2019. Acute Renal failure. Treatment: IV Solumedrol, Bronchodilators: Symbicort, Spiriva, Albuterol, O2 prn (2-3Lnc), IV Dextrose/Water, IV Lasix 40 mg q12, po Vibramycin, IV Rocephin. In order to capture the severity of condition, please clarify the COVID-19 status: False negative, treating for COVID-19 infection COVID-19 ruled out Other, please specify False negative, treating for COVID-19 infection MTDD
== END 2019-11-15 15:15 | disposition home health service (06) | DRG 177 ==
LOC: EC 13:43 → 3SCARD 13:57
PROVIDERS: ADMIT Internal Medicine; ATTEND Internal Medicine
DX: U07.1 COVID-19 (principal); N17.0 Acute kidney failure with tubular necrosis; J96.21 Acute and chronic respiratory failure with hypoxia; I50.33 Acute on chronic diastolic (congestive) heart failure; J44.1 Chronic obstructive pulmonary disease with (acute) exacerbation; I13.0 Hypertensive heart and chronic kidney disease with heart failure and stage 1 through stage 4 chronic kidney disease, or unspecified chronic kidney disease; J44.0 Chronic obstructive pulmonary disease with (acute) lower respiratory infection; D63.1 Anemia in chronic kidney disease; N18.3 Chronic kidney disease, stage 3 (moderate); Z99.81 Dependence on supplemental oxygen; E66.9 Obesity, unspecified; J20.8 Acute bronchitis due to other specified organisms; F41.1 Generalized anxiety disorder; G89.4 Chronic pain syndrome; E87.5 Hyperkalemia; E03.9 Hypothyroidism, unspecified; K58.9 Irritable bowel syndrome, unspecified; R00.0 Tachycardia, unspecified; F32.9 Major depressive disorder, single episode, unspecified; R79.82 Elevated C-reactive protein (CRP); R91.1 Solitary pulmonary nodule; R26.9 Unspecified abnormalities of gait and mobility; T50.1X5A Adverse effect of loop [high-ceiling] diuretics, initial encounter; Z71.3 Dietary counseling and surveillance; Z68.37 Body mass index [BMI] 37.0-37.9, adult; Z87.891 Personal history of nicotine dependence; Z79.890 Hormone replacement therapy; Z79.899 Other long term (current) drug therapy
CPT/HCPCS: 36415; 71045; 71250; 76770; 78582; 80048; 80053; 81003; 82728; 83605; 83615; 83735; 83880; 84132; 84145; 84439; 84443; 84484; 85025; 85379; 85730; 86140; 87040; 87635; 93306; 93970; 94640; 96365; 96375; 99285

== ENCOUNTER → 2019-12-23 | Outpatient (CLI) | payer OTHER ==
--- NOTE | 2019-12-23 14:50 | XR ---
EXAMINATION TYPE: XR orbit complete bilateral DATE OF EXAM: 12/23/2019 COMPARISON: NONE HISTORY: Pre-MRI clearance TECHNIQUE: 3 views submitted FINDINGS: Osseous structures intact. No metallic foreign body overlying the orbits. Slight nasal sept al deviation noted. IMPRESSION: No metallic foreign body overlying the orbits.
--- NOTE | 2019-12-24 12:59 | MR ---
EXAMINATION TYPE: MR brain wo con DATE OF EXAM: 12/23/2019 COMPARISON: NONE HISTORY: Coarse Tremors TECHNIQUE: T1-weighted sagittal, T2, FLAIR, and diffusion axial, and T2 coronal coronal views of the brain are submitted. FINDINGS: Exam severely limited by motion artifact. There is no evidence of acute ischemia. Moderate generalized degenerative change grossly noted and th ere is areas of abnormal signal the white matter which are nonspecific but most typical remote microv ascular ischemia. Grossly the Craniocervical junction maintained. Sella turcica has a normal appearance. No cerebellopontine angle mass. Changes of chronic sinusitis noted. IMPRESSION: 1. Severely Limited exam due to motion artifact demonstrates degenerative and nonspecific white matte r changes most typical remote ischemia. Extreme motion artifact noted which markedly limited exam.
== END | disposition home or self-care (01) ==
LOC: RADMRIMAIN 14:16
PROVIDERS: ATTEND Psychiatry & Neurology Neurology
DX: R90.82 White matter disease, unspecified (principal); G25.2 Other specified forms of tremor
CPT/HCPCS: 70200; 70551

== ENCOUNTER → 2020-05-05 | Outpatient (CLI) | payer OTHER ==
--- NOTE | 2020-05-05 14:56 | P.SLEEP ---
History of Present Illness H&P Date: 05/05/20 Chief Complaint: sleep apnea Juan is a 54-year-old male patient coming in to establish himself as a sleep center in regards to his obstructive sleep apnea. The patient has seen Dr. Shields in the office regarding his COPD. He was Hospital as in the past for an acute COPD exacerbation also in the last hospitalization was in December 2019. The patient is known to have severe COPD with an FEV1 of 40% of predicted and the patient has chronic hypoxic respiratory failure. He is also known to have chronic pain, hypothyroidism, hypertension, chronic anxiety. In terms of sleep apnea, the patient was diagnosed having obstructive sleep apnea approximately 6 months ago for a sleep study that was done a [facility]. Following that the patient was given a APAP. The patient brings in his machine with him today. He has a minimum pressure of 5 and adnexa pressure of 10 and is currently using an airfit F20 fullface mask medium size. I checked the compliance data. The machine was delivered to him approximately 5 months ago. Based on a thirty-day compliancy, the patient has used his machine approximately 20 out of 30 days and his CPAP use for more than 4 hours as well out of 30. His AHI is down to 6.8. He is having no major leaks around the mask. He is averaging around 4.6 hours of CPAP use for night whenever he has the machine on. He tells that at times he watches TV and he forgets to put the machine on. Nevertheless, whenever he wears the machine, is waking up much more refreshed and alert and reports improvement in his sleep quality. He agrees that he has to be more compliant with CPAP therapy. He is happy with the current treatment and overall clinical response. Based on reported history, he has history of loud snoring and witnessed apneas. He was to also have issues with chronic hypersomnia and sleepiness. He goes to bed at around 11 PM wakes around 6 AM in the morning. He wakes a few times the middle of the night utilize the bathroom. No sleep paralysis. No hallucinations. No cataplexy. No sleepwalking. No sleep talking. He has history of chronic anxiety. No depression. No panic attacks. No aerophagia. No gastric distention. No nocturnal chest pain or shortness of breath. He is a chronic smoker and stop smoking and currently is smoking only marijuana.. He currently has ageneration [employer] unit and he is utilizing and airfit F20 fullface mask. Review of Systems Constitutional: Reports fatigue, Reports lethargy, Reports weight gain Eyes: denies as per HPI, denies blurred vision, denies bulging eye, denies decreased vision, denies diplopia, denies discharge, denies dry eye, denies irritation, denies itching, denies pain, denies photophobia, denies loss of peripheral vision, denies loss of vision, denies tunnel vision/blind spots Ears: deny: decreased hearing, ear discharge, earache, tinnitus Ears, nose, mouth and throat: Denies headache, Denies sore throat Breasts: absent: as per HPI, gynecomastia Cardiovascular: Reports decreased exercise tolerance, Reports dyspnea on exertion Respiratory: Reports dyspnea, Reports snoring, Reports wheezing Gastrointestinal: Reports as per HPI Genitourinary: Reports as per HPI Musculoskeletal: Reports as per HPI Musculoskeletal: absent: ankle pain, ankle stiffness, ankle swelling Integumentary: Reports as per HPI Neurological: Reports weakness Psychiatric: Reports as per HPI, Reports sleep disturbances Endocrine: Reports as per HPI, Reports fatigue Hematologic/Lymphatic: Reports as per HPI Allergic/Immunologic: Reports as per HPI Past Medical History Past Medical History: Heart Failure, COPD, Hypertension Additional Past Medical History / Comment(s): chronic kidney disease, COPD, obesity, chronic anxiety, chronic pain,hypertension, , hypothyroidism, irritable bowel disorder History of Any Multi-Drug Resistant Organisms: None Reported Additional Past Surgical History / Comment(s): left testicle growth removal Past Psychological History: Anxiety Past Alcohol Use History: None Reported Past Drug Use History: None Reported - Past Family History Father History Unknown: Yes Mother History Unknown: Yes Medications and Allergies Home Medications Medication Instructions Recorded Confirmed Type Albuterol Inhaler [Ventolin Hfa 2 puff INHALATION RT-QID PRN 11/10/19 11/10/19 History Inhaler] Albuterol Nebulized [Ventolin 1.25 mg INHALATION RT-QID 11/10/19 11/10/19 History Nebulized] Cetirizine HCl [Zyrtec] 10 mg PO DAILY 11/10/19 11/10/19 History Fluticasone Nasal [place] [Flonase 1 spray EA NOSTRIL DAILY 11/10/19 11/10/19 History Nasal [place]] Fluticasone/Salmeterol [Advair 2 puff INHALATION RT-DAILY 11/10/19 11/10/19 History 250-50 Diskus] HYDROcodone/APAP 7.5-325MG [[place] 1 tab PO QID 11/10/19 11/10/19 History 7.5-325] Ipratropium-Albuterol Nebulize 3 ml INHALATION RT-QID 11/10/19 11/10/19 History [Duoneb 0.5 mg-3 mg/3 ml Soln] Levothyroxine Sodium 88 mcg PO DAILY 11/10/19 11/10/19 History Magnesium Oxide 400 mg PO DAILY 11/10/19 11/10/19 History Nicotine 7Mg/24Hr Patch [Habitrol] 1 patch TRANSDERM DAILY@1700 11/10/19 0 History Pantoprazole [Protonix] 40 mg PO DAILY 11/10/19 11/10/19 History Vitamin D3 50,000iu 50,000 unit PO FR 11/10/19 11/10/19 History clonazePAM [KlonoPIN] 1 mg PO BID 11/10/19 11/10/19 History traZODone HCL 50 mg PO HS 11/10/19 11/10/19 History Cefuroxime Axetil [Ceftin] 500 mg PO BID 3 Days #6 tab 11/15/19 Rx Furosemide [Lasix] 40 mg PO BID@0900,1600 #60 tab 11/15/19 Rx Labetalol [Trandate] 200 mg PO BID #60 tab 11/15/19 Rx predniSONE 10 mg PO DIRECTED #30 tab 11/15/19 Rx Allergies Allergy/AdvReac Type Severity Reaction Status Date / Time No Known Allergies Allergy Verified 11/10/19 16:09 Physical Exam Vitals: BP is 123/73, pulse is 64, respiration is at 16, height is 66 inches, weight is 238.8, His neck size 20 inches and three quarters, temperature is 9 98F, saturations 98% on room air morbidly obese, comfortable and the patient not having any major respiratory distress at this point in time. Head exam was generally normal. There was no scleral icterus or corneal arcus. Mucous membranes were moist. Neck was supple and without jugular venous distension, thyromegaly, or carotid bruits. Carotids were easily palpable bilaterally. There was no adenopathy.Mallampati class IV with significant crowding of the posterior oropharynx Lungs sounds are diminished bilaterally otherwise there is few scattered external wheezes heard upon forced respiratory maneuvers. Cardiac exam revealed the PMI to be normally situated and sized. The rhythm was regular and no extrasystoles were noted during several minutes of auscultation. The first and second heart sounds were normal and physiologic splitting of the second heart sound was noted. There were no murmurs, rubs, clicks, or gallops. Abdominal exam revealed normal bowel sounds. The abdomen was soft, non-tender, and without masses, organomegaly, or appreciable enlargement of the abdominal aorta. Examination of the extremities revealed easily palpable radial, femoral and pedal pulses. There was no cyanosis, clubbing or edema. Examination of the skin revealed no evidence of significant rashes, suspicious appearing nevi or other concerning lesions. Neurologically, the patient is awake and alert and the patient does not have any focal neurological deficit. Cranial nerves are essentially intact. Assessment and Plan Plan: 1 obstructive sleep apnea. Origin study was done at [facility] and the severity of his sleep apnea is not known to be at this point in time. Neverth eless, the patient was given an APAP with a minimum pressure of 5 and a maximal pressure of 10 and overall compliancy is suboptimal based on a thirty-day compliancy as recorded on a CPAP machine. He is using an airfit F20 fullface mask. 2COPD with FEV1 of 40% of predicted 3 chronic kidney disease 4 Obesity 5 chronic hypoxic respiratory failure 6 hypothyroidism 7 irritable bowel disease 8 chronic anxiety disorder 9 hypertension plan Increase the maximum pressure up to 12 cm of water and keep the minimum pressure at 5 Provide the patient a dreamware fullface mask medium size the compliance data is suboptimal and the patient will be seen back in 6-8 weeks for reevaluation and recheck of the compliance data and he needs to achieve at least 70% of CPAP use for more than 4 hours I asked the patient to bring me the original polysomnogram that establish the diagnosis of [facility] Follow-up in 6-8 weeks implement sleep hygiene measures Optimize COPD We'll continue to follow. Sleep Note - Sleep Data Previous Sleep Study: Yes - Sleep Note Sleep Note: Temperature: 98 Pulse Rate: 64 Respiratory Rate:16 Blood Pressure: 123/73 SpO2: 98% on room air Height: 66 inches Weight: 238 pounds Neck Circumference:20-3/4 of an inch Lind[place] score 12
== END | disposition home or self-care (01) ==
LOC: SLEEP 14:01
PROVIDERS: ATTEND Internal Medicine Critical Care Medicine
DX: G47.33 Obstructive sleep apnea (adult) (pediatric) (principal); E66.9 Obesity, unspecified; E03.9 Hypothyroidism, unspecified; I12.9 Hypertensive chronic kidney disease with stage 1 through stage 4 chronic kidney disease, or unspecified chronic kidney disease; N18.9 Chronic kidney disease, unspecified; F41.9 Anxiety disorder, unspecified; J96.11 Chronic respiratory failure with hypoxia; K58.9 Irritable bowel syndrome, unspecified; Z99.89 Dependence on other enabling machines and devices; Z79.890 Hormone replacement therapy; Z79.891 Long term (current) use of opiate analgesic; Z79.899 Other long term (current) drug therapy
CPT/HCPCS: 99211

== ENCOUNTER → 2020-12-02 | Outpatient (CLI) | payer OTHER ==
--- NOTE | 2020-12-02 09:57 | P.CONS ---
History of Present Illness - Reason for Consult Consult date: 12/02/20 - Chief Complaint Neck and right shoulder pain - History of Present Illness This is a 55-year-old gentleman with history of neck pain which started one year ago and tingling in the right arm. The pain radiates down to the right upper arm. He feels some weakness in the right arm. He failed to respond to physical therapy. He has been using [place] and marijuana to help with his pain. He denies any history of diabetes or treatment with anticoagulants. He denies any bowel or bladder problems. The pain occasionally wakes him up at night. He denies any weight loss recently. Review of Systems Constitutional: Denies chills, Denies fever Ears, nose, mouth and throat: Denies headache, Denies sore throat Cardiovascular: Denies chest pain, Denies shortness of breath Respiratory: Denies cough Musculoskeletal: Reports as per HPI Neurological: Reports as per HPI Past Medical History Past Medical History: Heart Failure, COPD, Hypertension, Sleep Apnea/CPAP/BIPAP Additional Past Medical History / Comment(s): chronic kidney disease, obesity, chronic pain, hypothyroidism, IBS, edema lower legs, uses CPAP, oxygen 2l prn, DDD History of Any Multi-Drug Resistant Organisms: None Reported Additional Past Surgical History / Comment(s): left testicle growth removal, pain procedures, colonoscopy Past Anesthesia/Blood Transfusion Reactions: No Reported Reaction Past Psychological History: Anxiety Smoking Status: Former smoker Past Alcohol Use History: None Reported Additional Past Alcohol Use History / Comment(s): smoked for 40 yrs., quit >1 year ago, >1ppd Past Drug Use History: Marijuana Additional Drug Use History / Comment(s): occasional - Past Family History Father History Unknown: Yes Mother History Unknown: Yes Medications and Allergies Home Medications Medication Instructions Recorded Confirmed Type Albuterol Inhaler [Ventolin Hfa 2 puff INHALATION RT-QID PRN 11/10/19 11/30/20 History Inhaler] Cetirizine HCl [Zyrtec] 10 mg PO DAILY 11/10/19 11/30/20 History Ipratropium-Albuterol Nebulize 3 ml INHALATION RT-QID 11/10/19 11/30/20 History [Duoneb 0.5 mg-3 mg/3 ml Soln] Levothyroxine Sodium 88 mcg PO DAILY 11/10/19 11/30/20 History Magnesium Oxide 400 mg PO DAILY 11/10/19 11/30/20 History Pantoprazole [Protonix] 40 mg PO DAILY 11/10/19 11/30/20 History Furosemide [Lasix] 40 mg PO BID@0900,1600 #60 tab 11/15/19 11/30/20 Rx Labetalol [Trandate] 200 mg PO BID #60 tab 11/15/19 11/30/20 Rx Budesonide/Formoterol Fumarate 2 puff INHALATION BID 11/30/20 11/30/20 History [Symbicort 160-4.5 Mcg Inhaler] Ergocalciferol [Vitamin D2 (1250 50,000 unit PO WEEKLY 11/30/20 11/30/20 History Mcg = 74661 Iu)] Escitalopram [Lexapro] 10 mg PO DAILY 11/30/20 11/30/20 History HYDROcodone/APAP 10-325MG [[place] 1 tab PO TID 11/30/20 11/30/20 History 10-325] Potassium Chloride ER [K-Dur 10] 10 meq PO DAILY 11/30/20 11/30/20 History Spironolactone [Aldactone] 50 mg PO DAILY 11/30/20 11/30/20 History Allergies Allergy/AdvReac Type Severity Reaction Status Date / Time No Known Allergies Allergy Verified 11/30/20 10:36 Physical Exam Vitals: Vital Signs Temp Pulse Resp BP Pulse Ox 12/02/20 09:45 98.1 F 90 16 120/83 96 - Constitutional General appearance: morbidly obese - Integumentary Integumentary: no calor, no cellulitis, no cyanotic, no decreased turgor, no flushed, no jaundiced, no normal, no normal turgor, no pale, no rash, no ulcer - Neurologic Neuro exam of the upper extremities showed absent right triceps reflex compared to the left side. Normal muscle strength bilaterally in the upper extremities. Normal range of motion of the cervical spine however with more pain with extension and lateral bending to the right side. Postoperative tenderness in the cervical paravertebral musculature bilaterally. Neurologic: CNII-XII intact - Psychiatric Psychiatric: A&O x's 3, appropriate affect, intact judgment & insight Results Results: Cervical spine MRI showed multilevel degenerative changes with canal and foraminal stenosis most pronounced at C3-C4 level he has severe neuroforaminal stenosis on the right side at the C3-C4 level Assessment and Plan Plan: This is a 55-year-old gentleman with history of neck pain with radiation to the right upper arm and tingling in the right arm. The patient has severe neural foraminal stenosis at the C3-C4 level on the right side which correlates with his symptoms. The patient failed to respond to physical therapy. He uses [place] and marijuana for his pain. He denies any history of diabetes or treatment with anticoagulants. The patient may benefit from getting cervical epidural steroid injection at the C7-T1 level in the right paramedian approach under fluoroscopic guidance. The procedure was explained to the patient and his questions were answered. I thank Dr. Meneses for the referral
== END ==
CPT/HCPCS: 99211

== ENCOUNTER 2020-12-22 11:59 | Day surgery (SDC) | payer OTHER ==
[2020-12-21 09:47] VITALS: BMI 36.0
[~2020-12-22 11:59] MED LIST: LACTATED RINGERS 1,000 ML IV SCH
[2020-12-22 12:23] VITALS: TEMP 97.8
[2020-12-22] MEDS ORDERED: IOPAMIDOL M200 10 ML VIAL ONE (12:51)
[2020-12-22] MEDS ORDERED: DEXAMETHASONE SOD PHOSPHATE 10 MG/ML 1 ML VIAL ONE (12:51)
--- NOTE | 2020-12-22 13:03 | P.PCN ---
Date of Procedure: 12/22/20 Procedure(s) Performed: . PROCEDURE 1. Cervical epidural steroid injection under fluoroscopic guidance, C7-T1 (fluoroscopy images available in the radiology department ) 2. Cervical epidurogram. PREOPERATIVE DIAGNOSIS: 1- Cervical Degenerative Disc Diseases 2- Cervical radiculopathy., 3-cervical foraminal stenosis POSTOPERATIVE DIAGNOSIS: : 1- Cervical Degenerative Disc Diseases , 2- Cervical radiculopathy. 3-,cervical foraminal stenosis ANESTHESIA: Local anesthesia with lidocaine 1 % 3 ml only . EBL 0 PROCEDURE INDICATION: The patient with neck pain and radiculitis unresponsive to conservative treatment consents for procedure. PROCEDURE DESCRIPTION / TECHNIQUE: The patient was seen and identified in the preoperative area. Risks, benefits, complications, including but not limited to infections ,bleeding , allergic reactions to the medications ,and not complete pain releife, and alternatives were discussed with the patient, the patient agreed to proceed with the procedure and signed the consent. Patient was taken to the OR and time out was completed. The patient was placed in the prone position on the procedure table. A pillow was placed under the patients chest to increase the cervical interlaminar space. The cervical area was prepped and draped in the usual sterile fashion. Vital signs were closely monitored during the procedure. Using anterior-posterior fluoroscopy, the C7-T1 interlaminar space was identified and the skin over this site was marked and then infiltrated with 1% lidocaine subcutaneously. Subsequently, a 20-gauge 3-1/2-inch Tuohy epidural needle was inserted and advanced toward the epidural space by means of the ``hanging-drop technique and guided by AP and lateral fluoroscopy. The correct needle position in the epidural space was verified with the injection of 2 mL of the water soluble contrast dye Isovue-200 and observing an excellent epidurogram with the epidural spread of the dye, after negative aspiration for blood and CSF and in the absence of paresthesias. then, mixture containing 20 mg Dexamethasone and 2 ml of preservative-free normal saline injected and a washout of epidurogram was seen. Needle was withdrawn intact, skin was cleansed, and bandages were applied. Complications= none. Disposition= patient was placed in supine position and transferred to the recovery room area in stable condition and there was no evidence of upper or lower extremity motor or sensory deficit after the procedure patient was dischar ged from recovery room after discharge criteria met and home discharge instructions was given by the staff and patient will follow with the pain clinic in 2-4 weeks
[2020-12-22 13:13] VITALS: PULSE 82; RESP 16
--- NOTE | 2020-12-22 13:13 | FL ---
EXAMINATION TYPE: FL guided pain mgmt statistic DATE OF EXAM: 12/22/2020 HISTORY: Fluoroscopy time 2 seconds of fluoroscopy provided. IMPRESSION: 1. Fluoroscopy time.
[2020-12-22 13:30] VITALS: BP 134/84
== END 2020-12-22 13:42 | disposition home or self-care (01) ==
LOC: ORPAIN 11:59
PROVIDERS: ATTEND Specialist
DX: M48.02 Spinal stenosis, cervical region (principal); M50.10 Cervical disc disorder with radiculopathy, unspecified cervical region
CPT/HCPCS: 62321; J1100; Q9966

== ENCOUNTER 2021-01-05 06:05 | Day surgery (SDC) | payer OTHER ==
[2021-01-05 06:40] VITALS: TEMP 97.5
[2021-01-05] MEDS ORDERED: IOPAMIDOL M200 10 ML VIAL ONE (07:03)
[2021-01-05] MEDS ORDERED: DEXAMETHASONE SOD PHOSPHATE 10 MG/ML 1 ML VIAL ONE (07:03)
--- NOTE | 2021-01-05 07:24 | P.PCN ---
Date of Procedure: 01/05/21 Surgeon: Fredi Centeno Pathology: none sent Condition: stable Disposition: PACU Description of Procedure: 1. Cervical epidural steroid injection under fluoroscopic guidance, C7-T1 right paramedian approach. 2. Cervical epidurogram. : PREOPERATIVE DIAGNOSIS: Cervical radiculopathy, cervical spondylosis without myelopathy POSTOPERATIVE DIAGNOSIS: : Same as above ANESTHESIA: Local anesthesia with 1% lidocaine and IV moderate conscious sedation with Versed and Fentanyl . EBL 0 PROCEDURE INDICATION: The patient with neck pain and radiculopathy unresponsive to conservative treatment consents for procedure. PROCEDURE DESCRIPTION / TECHNIQUE: The patient was seen and identified in the preoperative area. Risks, benefits, complications, including but not limited to infections ,bleeding , allergic reactions to the medications ,and not complete pain relief, and alternatives were discussed with the patient, the patient agreed to proceed with the procedure and signed the consent. Patient was taken to the OR and time out was completed. The patient was placed in the prone position on the procedure table. A pillow was placed under the patients chest to increase the flexion of the cervical spine . The cervical area was prepped and draped in the usual sterile fashion. Vital signs were closely monitored during the procedure. Conscious sedation was used during the procedure to decrease patients anxiety. Using anterior-posterior fluoroscopy, the C7-T1 interlaminar space was identified and the skin over this site was marked and then infiltrated with 1% lidocaine subcutaneously. Subsequently, a 20-gauge 3-1/2-inch Tuohy epidural needle was inserted and advanced toward the epidural space by means of loss of resistance to air technique and guided by AP and lateral fluoroscopy. The needle tip contacted the lamina of T1 vertebra first, then it was walked off bone and into the epidural space using the loss of to air and fluoroscopic guidance to identify the epidural space. The correct needle position in the epidural space was verified with the injection of 1 mL of the water soluble contrast dye Isovue and observing an excellent epidurogram with the epidural spread of the dye, after negative aspiration for blood and CSF and in the absence of paresthesias. Again after negative aspiration, a 2 ml mixture containing 10 mg of Decadron and 1 ml of preservative free Normal Saline solution was injected and a washout of epidurogram was seen. Needle was withdrawn intact, skin was cleansed, and bandages were applied. A copy of the needle placement picture was saved to the fluoroscopy machine.
[2021-01-05 07:28] VITALS: BP 136/98; PULSE 86; RESP 16
--- NOTE | 2021-01-05 08:44 | FL ---
Fluoroscopy HISTORY: Pain 4 seconds fluoroscopy time supplied to the referring clinician. 1 intraoperative C-arm images docume nt the procedure. See dictated report from anesthesia.
== END 2021-01-05 07:56 | disposition home or self-care (01) ==
LOC: ORPAIN 06:05
PROVIDERS: ATTEND Anesthesiology
DX: M47.22 Other spondylosis with radiculopathy, cervical region (principal); E07.9 Disorder of thyroid, unspecified; I10 Essential (primary) hypertension; G47.33 Obstructive sleep apnea (adult) (pediatric)
CPT/HCPCS: 62321; J1100; Q9966

== ENCOUNTER → 2021-02-01 | Outpatient (CLI) | payer OTHER ==
[2021-02-01 11:06] VITALS: BP 138/85; PULSE 89; RESP 18; TEMP 98.2
--- NOTE | 2021-02-01 11:24 | P.PN ---
Subjective Progress Note Date: 02/01/21 This is a 55-year-old morbidly obese gentleman with history of neck pain with radiation to the right arm with numbness and tingling in the right hand. The patient had 2 cervical epidural steroid injections which gave him at least 50% of pain relief however this lasted only for 2 days. The patient feels pain intensity in the right lower neck area and also around the right shoulder. He takes [place] 10 mg 3 times a day for his neck and lower back pain as he states. He received this prescription from his primary care physician. Patient denies new-onset weakness, bowel/bladder incontinence, or any other signs or symptoms of cauda equina syndrome. There are no signs of acute intoxication, and no indications of medication diversion or overuse. In addition to above, 13-point review of systems is also negative for chest pain, shortness of breath, changes in vision, changes in hearing, new onset weakness, abdominal pain, diarrhea, extreme fatigue, malaise, fever, skin changes, homicidal or suicidal ideation, or bowel or bladder incontinence. Vital Signs: Reviewed in EMR Gen: AAOx3, NAD HEENT: PERRLA,hearing grossly normal Pulm: resp unlabored Neck: supple, trachea midline Neuro exam of the extremities: Decreased right deltoid muscle strength to 4 out of 5 due to increasing pain in the right shoulder Straight leg raising test: Jose Miguel's test: Range of motion of the cervical spine: Normal range of motion however painful with right and left rotation Decreased range of motion of the right shoulder joint to less than 90 abduction Postoperative tenderness on the anterior and posterior aspect of the right shoulder joint Facet loading test: Tenderness in the paravertebral musculature: Positive on the right side of the cervical spine Neuro: CN II-XII grossly intact, Imaging: Reviewed in EMR/chart Assessment: Right cervical radiculopathy not responsive to cervical epidural steroid injection Cervical spondylosis without myelopathy Right shoulder arthropathy Morbid obesity COPD Plan: 1. Explanation: Opioid and psychological risk scores were reviewed. Diagnoses, prognoses, and multiple treatment options including but not limited to physical therapy, interventional therapies, adjuvant medical therapies, narcotic medication therapies, and surgery were discussed with the patient and all questions were answered to the patient's satisfaction. 2. Opioid agreement: Signed with the patient and the patient is warned not to use opioids while driving or before driving and not to combine opioids with benzodiazepines or alcohol. 3. Counseling: The patient was counseled extensively on SMOKING CESSATION, BODY MASS INDEX, EXERCISE. Specifically, the patient was instructed regarding the importance of smoking cessation, obesity, and exercise in the context of both chronic pain and overall health. 4. Procedures: The patient may benefit from getting a diagnostic cervical medial branch block for levels C4 5 and C6 on the right side under fluoroscopic guidance. The patient will think about this procedure and get back to us. 5. Consultations: None 6. Investigations: None 7. Medications: None prescribed 8. Disposition: Return to clinic as needed 9. Maps were reviewed and were appropriate. Objective - Vital Signs Vital signs: Vital Signs Temp 98.2 F 02/01/21 11:00 Pulse 89 02/01/21 11:00 Resp 18 02/01/21 11:00 BP 138/85 02/01/21 11:00 Pulse Ox 94 L 02/01/21 11:00
== END ==
LOC: PNWHC3 10:44
PROVIDERS: ATTEND Anesthesiology
DX: M47.22 Other spondylosis with radiculopathy, cervical region (principal); E66.01 Morbid (severe) obesity due to excess calories; J44.9 Chronic obstructive pulmonary disease, unspecified; M19.011 Primary osteoarthritis, right shoulder; Z87.891 Personal history of nicotine dependence; Z68.37 Body mass index [BMI] 37.0-37.9, adult
CPT/HCPCS: 99211

== ENCOUNTER 2023-08-25 11:01 | Emergency (ER) | payer MEDICARE, OTHER ==
[2023-08-25 12:06] VITALS: TEMP 98.3
--- NOTE | 2023-08-25 12:14 | ED ---
Extremity Problem HPI - General Chief complaint: Extremity Problem,Nontraumatic Stated complaint: pain in both legs/Blood clots Time Seen by Provider: 08/25/23 11:05 Source: patient, RN notes reviewed Mode of arrival: ambulatory Limitations: no limitations - History of Present Illness Initial comments: 57-year-old male presents emergency department from PCPs office for bilateral leg ultrasound. Patient states has been having some pain he had bruising on his right leg has more discomfort to his left. Patient has no history of DVT or PE. Patient denies any chest pain or shortness of breath this time he does have a history of congestive heart failure but again is having no current complaints. Patient denies any recent traveling. - Related Data Home Medications Medication Instructions Recorded Confirmed Albuterol Inhaler [Ventolin Hfa 2 puff INHALATION RT-QID PRN 11/10/19 01/29/21 Inhaler] Cetirizine HCl [Zyrtec] 10 mg PO DAILY 11/10/19 01/29/21 Ipratropium-Albuterol Nebulize 3 ml INHALATION RT-QID 11/10/19 01/29/21 [Duoneb 0.5 mg-3 mg/3 ml Soln] Levothyroxine Sodium 88 mcg PO DAILY 11/10/19 01/29/21 Magnesium Oxide 400 mg PO DAILY 11/10/19 01/29/21 Pantoprazole [Protonix] 40 mg PO DAILY 11/10/19 01/29/21 Budesonide/Formoterol Fumarate 2 puff INHALATION BID 11/30/20 01/29/21 [Symbicort 160-4.5 Mcg Inhaler] Ergocalciferol [Vitamin D2 (1250 50,000 unit PO WEEKLY 11/30/20 01/29/21 Mcg = 62645 Iu)] Escitalopram [Lexapro] 10 mg PO DAILY 11/30/20 01/29/21 HYDROcodone/APAP 10-325MG [[place] 1 tab PO TID 11/30/20 01/29/21 10-325] Potassium Chloride ER [K-Dur 10] 10 meq PO DAILY 11/30/20 01/29/21 Spironolactone [Aldactone] 50 mg PO DAILY 11/30/20 01/29/21 Previous Rx's Medication Instructions Recorded Furosemide [Lasix] 40 mg PO BID@0900,1600 #60 tab 11/15/19 Labetalol [Trandate] 200 mg PO BID #60 tab 11/15/19 Allergies Allergy/AdvReac Type Severity Reaction Status Date / Time No Known Allergies Allergy Verified 08/25/23 11:13 Review of Systems ROS Statement: Those systems with pertinent positive or pertinent negative responses have been documented in the HPI. ROS Other: All systems not noted in ROS Statement are negative. Past Medical History Past Medical History: Heart Failure, COPD, Hypertension, Musculoskeletal Disorder, Renal Disease, Sleep Apnea/CPAP/BIPAP, Thyroid Disorder Additional Past Medical History / Comment(s): chronic kidney disease, obesity, chronic pain Rt arm, hypothyroidism, IBS, edema lower legs, uses CPAP, oxygen 2L prn, DDD History of Any Multi-Drug Resistant Organisms: None Reported Past Surgical History: No Surgical Hx Reported Additional Past Surgical History / Comment(s): left testicle growth removal, pain procedures, colonoscopy Past Anesthesia/Blood Transfusion Reactions: No Reported Reaction Past Psychological History: Anxiety Smoking Status: Former smoker Past Alcohol Use History: None Reported Past Drug Use History: Marijuana - Past Family History Father History Unknown: Yes Mother History Unknown: Yes General Exam Limitations: no limitations General appearance: alert, in no apparent distress Head exam: Present: atraumatic, normocephalic, normal inspection Respiratory exam: Present: normal lung sounds bilaterally. Absent: respiratory distress, wheezes, rales, rhonchi, stridor Cardiovascular Exam: Present: regular rate, normal rhythm, normal heart sounds. Absent: systolic murmur, diastolic murmur, rubs, gallop, clicks Extremities exam: Present: other (Small ecchymosis right leg just distal to the right knee neurovascular intact bilaterally there is mild left calf tenderness) Course Vital Signs 08/25/23 08/25/23 11:11 12:50 Temperature 98.3 F Pulse Rate 81 65 Respiratory 20 18 Rate Blood Pressure 107/68 115/78 O2 Sat by Pulse 96 95 Oximetry Medical Decision Making - Medical Decision Making Was pt. sent in by a medical professional or institution (, PA, POULTRY SERVICE TECHNICIAN, urgent care, hospital, or half-way...) When possible be specific @ -[PCP Did you speak to anyone other than the patient for history (EMS, parent, family, police, friend...)? What history was obtained from this source @ -No Did you review nursing and triage notes (agree or disagree)? Why? @ -I reviewed and agree with nursing and triage notes Were old charts reviewed (outside hosp., previous admission, EMS record, old EKG, old radiological studies, urgent care reports/EKG's, half-way records)? Report findings @ -No old charts were reviewed Differential Diagnosis (chest pain, altered mental status, abdominal pain women, abdominal pain men, vaginal bleeding, weakness, fever, dyspnea, syncope, headache, dizziness, GI bleed, back pain, seizure, CVA, palpatations, mental health, musculoskeletal)? @ -Superficial thrombophlebitis, DVT, Mcdonnell's cyst EKG interpreted by me (3pts min.). @ -[None X-rays interpreted by me (1pt min.). @ -None done CT interpreted by me (1pt min.). @ -None done U/S interpreted by me (1pt. min.). @ -[Ultrasound bilateral venous Doppler negative for acute DVT patient has bilateral Mcdonnell's cyst What testing was considered but not performed or refused? (CT, X-rays, U/S, labs)? Why? @ -None What meds were considered but not given or refused? Why? @ -None Did you discuss the management of the patient with other professionals (professionals i.e. , PA, POULTRY SERVICE TECHNICIAN, lab, RT, psych nurse, perinatal social worker, plant custodian, teacher, radiation officer, rn case mgr)? Give summary @ -No Was smoking cessation discussed for >3mins.? @ -No Was critical care preformed (if so, how long)? @ -No Were there social determinants of health that impacted care today? How? (Homelessness, low income, unemployed, alcoholism, drug addiction, transportation, low edu. Level, literacy, decrease access to med. care, fci, rehab)? @ -No Was there de-escalation of care discussed even if they declined (Discuss DNR or withdrawal of care, Hospice)? DNR status @ -No What co-morbidities impacted this encounter? (DM, HTN, Smoking, COPD, CAD, C ancer, CVA, ARF, Chemo, Hep., AIDS, mental health diagnosis, sleep apnea, morbid obesity)? @ -None Was patient admitted / discharged? Hospital course, mention meds given and route, prescriptions, significant lab abnormalities, going to OR and other pertinent info. @ -[Just charge patient presenting to rule out DVT by his PCP. Patient has negative ultrasounds for DVT patient has evidence of Mcdonnell's cyst. Undiagnosed new problem with uncertain prognosis? @ -No Drug Therapy requiring intensive monitoring for toxicity (Heparin, Nitro, Insulin, Cardizem)? @ -No Were any procedures done? @ -No Diagnosis/symptom? @ -[Mcdonnell's cyst bilaterally Acute, or Chronic, or Acute on Chronic? @ -Acute Uncomplicated (without systemic symptoms) or Complicated (systemic symptoms)? @ -Uncomplicated Side effects of treatment? @ -[No Exacerbation, Progression, or Severe Exacerbation? @ -No Poses a threat to life or bodily function? How? (Chest pain, [place], [place], pneumonia, PE, COPD, DKA, ARF, appy, cholecystitis, CVA, Diverticulitis, Homicidal, Suicidal, threat to staff... and all critical care pts) @ -No Disposition Clinical Impression: Mcdonnell's cyst Disposition: HOME SELF-CARE Condition: Stable Instructions (If sedation given, give patient instructions): Mcdonnell Cyst (ED) Additional Instructions: Please return to the Emergency Department if symptoms worsen or any other concerns. Is patient prescribed a controlled substance at d/c from ED?: No Referrals: Ilsa Alonso DO [Primary Care Provider] - 1-2 days Time of Disposition: 12:41
--- NOTE | 2023-08-25 12:31 | US ---
EXAMINATION TYPE: US venous doppler duplex LE DATE OF EXAM: 08/25/2023 11:46 AM COMPARISON: US CLINICAL INDICATION: Male, 57 years old with history of pain; Pain in legs SIDE PERFORMED: Bilateral TECHNIQUE: The lower extremity deep venous system is examined utilizing real time linear array sonog jessy with graded compression, doppler sonography and color-flow sonography. VESSELS IMAGED: Common Femoral Vein Deep Femoral Vein Greater Saphenous Vein * Femoral Vein Popliteal Vein Small Saphenous Vein * Proximal Calf Veins (* superficial vessels) Right Leg: Negative for DVT, Probable Mcdonnell's cyst right pop fossa= 5.2 x 1.2 x 2.2 cm Left Leg: Negative for DVT, Probable Mcdonnell's cyst left pop fossa= 5.6 x 0.9 x 2.4 cm IMPRESSION: Grayscale, color doppler, spectral doppler imaging performed of the deep veins of the lo wer extremities. There is normal flow, compressibility, vascular waveforms.
[2023-08-25 13:07] VITALS: BP 115/78; PULSE 65; RESP 18
== END 2023-08-25 12:52 | disposition home or self-care (01) ==
LOC: EC 11:01
DX: M71.22 Synovial cyst of popliteal space [Baker], left knee (principal); I13.0 Hypertensive heart and chronic kidney disease with heart failure and stage 1 through stage 4 chronic kidney disease, or unspecified chronic kidney disease; I50.9 Heart failure, unspecified; N18.9 Chronic kidney disease, unspecified; F41.9 Anxiety disorder, unspecified; J44.9 Chronic obstructive pulmonary disease, unspecified; G47.30 Sleep apnea, unspecified; F12.90 Cannabis use, unspecified, uncomplicated; E07.9 Disorder of thyroid, unspecified; Z79.890 Hormone replacement therapy; Z79.51 Long term (current) use of inhaled steroids; Z87.891 Personal history of nicotine dependence; Z79.899 Other long term (current) drug therapy
CPT/HCPCS: 93970; 99283

== ENCOUNTER 2023-09-08 13:29 | Emergency (ER) | payer MEDICARE ==
[2023-09-08 14:11] VITALS: TEMP 98.1
--- NOTE | 2023-09-08 14:27 | ED ---
SOB HPI - General Source: patient, RN notes reviewed Mode of arrival: ambulatory Limitations: no limitations - History of Present Illness MD Complaint: shortness of breath, cough <Jackeline Haley - Last Filed: 09/08/23 14:25> - General Source: patient, RN notes reviewed Mode of arrival: ambulatory Limitations: no limitations <Emani Tillman - Last Filed: 09/08/23 23:48> - General Chief Complaint: Shortness of Breath Stated Complaint: congestion,sob-sent by drs Time Seen by Provider: 09/08/23 14:25 - History of Present Illness Initial Comments: This is a 57 year old male who presents to the emergency department for shortness of breath, coughing, and congestion. Symptoms started a week ago, but seem to be worsening. Denies any chest pain, fevers, or chills. Reports a history of CHF and COPD. (Jackeline Haley) 57-year-old male presents to the emergency department for evaluation of shortness of breath. He states that this has been going on for around 2 weeks. He reports that around 2 to 3 days ago he also noted sore throat, cough. He notes that at that time his shortness of breath is started to worsen. He denies chest pain, fever. He does report a history of COPD. He was recently on a prednisone taper and a Z-Saul. (Emani Tillman) - Related Data Home Medications Medication Instructions Recorded Confirmed Albuterol Inhaler [Ventolin Hfa 2 puff INHALATION RT-QID PRN 11/10/19 01/29/21 Inhaler] Cetirizine HCl [Zyrtec] 10 mg PO DAILY 11/10/19 01/29/21 Ipratropium-Albuterol Nebulize 3 ml INHALATION RT-QID 11/10/19 01/29/21 [Duoneb 0.5 mg-3 mg/3 ml Soln] Levothyroxine Sodium 88 mcg PO DAILY 11/10/19 01/29/21 Magnesium Oxide 400 mg PO DAILY 11/10/19 01/29/21 Pantoprazole [Protonix] 40 mg PO DAILY 11/10/19 01/29/21 Budesonide/Formoterol Fumarate 2 puff INHALATION BID 11/30/20 01/29/21 [Symbicort 160-4.5 Mcg Inhaler] Ergocalciferol [Vitamin D2 (1250 50,000 unit PO WEEKLY 11/30/20 01/29/21 Mcg = 26573 Iu)] Escitalopram [Lexapro] 10 mg PO DAILY 11/30/20 01/29/21 HYDROcodone/APAP 10-325MG [[place] 1 tab PO TID 11/30/20 01/29/21 10-325] Potassium Chloride ER [K-Dur 10] 10 meq PO DAILY 11/30/20 01/29/21 Spironolactone [Aldactone] 50 mg PO DAILY 11/30/20 01/29/21 Previous Rx's Medication Instructions Recorded Furosemide [Lasix] 40 mg PO BID@0900,1600 #60 tab 11/15/19 Labetalol [Trandate] 200 mg PO BID #60 tab 11/15/19 predniSONE 50 mg PO DAILY #5 tab 09/08/23 Allergies Allergy/AdvReac Type Severity Reaction Status Date / Time No Known Allergies Allergy Verified 09/08/23 13:55 Review of Systems ROS Other: All systems not noted in ROS Statement are negative. <Jackeline Haley - Last Filed: 09/08/23 14:25> ROS Other: All systems not noted in ROS Statement are negative. <Emani Tillman - Last Filed: 09/08/23 23:48> ROS Statement: Those systems with pertinent positive or pertinent negative responses have been documented in the HPI. Past Medical History Past Medical History: Heart Failure, COPD, Hypertension, Musculoskeletal Disorder, Renal Disease, Sleep Apnea/CPAP/BIPAP, Thyroid Disorder Additional Past Medical History / Comment(s): chronic kidney disease, obesity, chronic pain Rt arm, hypothyroidism, IBS, edema lower legs, uses CPAP, oxygen 2L prn, DDD History of Any Multi-Drug Resistant Organisms: None Reported Past Surgical History: No Surgical Hx Reported Additional Past Surgical History / Comment(s): left testicle growth removal, pain procedures, colonoscopy Past Anesthesia/Blood Transfusion Reactions: No Reported Reaction Past Psychological History: Anxiety Smoking Status: Former smoker Past Alcohol Use History: None Reported Past Drug Use History: Marijuana - Past Family History Father History Unknown: Yes Mother History Unknown: Yes <Jackeline Haley - Last Filed: 09/08/23 14:25> General Exam Limitations: no limitations <Jackeline Haley - Last Filed: 09/08/23 14:25> Limitations: no limitations General appearance: alert, in no apparent distress Head exam: Present: atraumatic, normocephalic, normal inspection Eye exam: Present: normal appearance, PERRL, EOMI. Absent: scleral icterus, conjunctival injection, periorbital swelling ENT exam: Present: mucous membranes moist. Absent: normal oropharynx (Erythematous) Neck exam: Present: normal inspection. Absent: tenderness, meningismus, lymphadenopathy Respiratory exam: Present: wheezes. Absent: respiratory distress, stridor, chest wall tenderness, accessory muscle use Cardiovascular Exam: Present: regular rate, normal rhythm, normal heart sounds. Absent: systolic murmur, diastolic murmur, rubs, gallop, clicks Extremities exam: Present: normal inspection, full ROM, normal capillary refill. Absent: tenderness, pedal edema, joint swelling, calf tenderness Back exam: Present: normal inspection Neurological exam: Present: alert, oriented X3 Psychiatric exam: Present: normal affect, normal mood Skin exam: Present: warm, dry, intact, normal color. Absent: rash <Emani Tillman - Last Filed: 09/08/23 23:48> - General Exam Comments Initial Comments: Visual Physical Exam Vital signs reviewed General: Well-appearing, nontoxic, no acute distress. Head: Normocephalic, atraumatic Eyes: PERRLA, EOMI ENT: Airway patent Chest: Nonlabored breathing Skin: No visual rash, normal skin tone Neuro: Alert and oriented 3 Musculoskeletal: No gross abnormalities (Jackeline Haley) Course Vital Signs 09/08/23 09/08/23 09/08/23 13:52 15:17 16:52 Temperature 98.1 F Pulse Rate 96 87 83 Respiratory 24 20 Rate Blood Pressure 136/82 141/82 O2 Sat by Pulse 96 96 Oximetry 09/08/23 09/08/23 09/08/23 17:01 17:29 19:40 Temperature Pulse Rate 85 85 88 Respiratory 20 20 Rate Blood Pressure 155/96 164/98 O2 Sat by Pulse 97 95 Oximetry Medical Decision Making <Jackeline Haley - Last Filed: 09/08/23 14:25> - Lab Data Result diagrams: 09/08/23 15:15 09/08/23 15:15 <Emani Tillman - Last Filed: 09/08/23 23:48> - Medical Decision Making I performed the QuickNote portion of this chart. Signed Jackeline Haley PA-C. (Jackeline Haley) Was pt. sent in by a medical professional or institution (BERNIE Alatorre, HARPOONER, urgent care, hospital, or intermediate...) When possible be specific @ -Sent in by PCP Did you speak to anyone other than the patient for history (EMS, parent, family, police, friend...)? What history was obtained from this source @ -No Did you review nursing and triage notes (agree or disagree)? Why? @ -I reviewed and agree with nursing and triage notes Were old charts reviewed (outside hosp., previous admission, EMS record, old EKG, old radiological studies, urgent care reports/EKG's, intermediate records)? Report findings @ -No old charts were reviewed Differential Diagnosis (chest pain, altered mental status, abdominal pain women, abdominal pain men, vaginal bleeding, weakness, fever, dyspnea, syncope, headache, dizziness, GI bleed, back pain, seizure, CVA, palpatations, mental health, musculoskeletal)? @ -Differential Dyspnea: Coronary syndrome, arrhythmia, tamponade, asthma, COPD, pulmonary embolism, pneumonia, pneumothorax, pulmonary effusion, anaphylaxis, diabetic ketoacidosis, flailed chest, pulmonary contusion, diaphragmatic rupture, anemia, neuromuscular, this is not meant to be an all-inclusive list. EKG interpreted by me (3pts min.). @ -None X-rays interpreted by me (1pt min.). @ -Chest x-ray shows no acute infiltrate CT interpreted by me (1pt min.). @ -CT chest for PE shows no signs for acute PE U/S interpreted by me (1pt. min.). @ -None done What testing was considered but not performed or refused? (CT, X-rays, U/S, labs)? Why? @ -None What meds were considered but not given or refused? Why? @ -None Did you discuss the management of the patient with other professionals (professionals i.e. BERNIE Alatorre, HARPOONER, lab, RT, psych nurse, manager social work, sterile preparation technician, teacher, investigation officer, case advocate)? Give summary @ -No Was smoking cessation discussed for >3mins.? @ -No Was critical care preformed (if so, how long)? @ -No Were there social determinants of health that impacted care today? How? (Homelessness, low income, unemployed, alcoholism, drug addiction, transp ortation, low edu. Level, literacy, decrease access to med. care, half-way, rehab)? @ -No Was there de-escalation of care discussed even if they declined (Discuss DNR or withdrawal of care, Hospice)? DNR status @ -No What co-morbidities impacted this encounter? (DM, HTN, Smoking, COPD, CAD, Cancer, CVA, ARF, Chemo, Hep., AIDS, mental health diagnosis, sleep apnea, morbid obesity)? @ -COPD Was patient admitted / discharged? Hospital course, mention meds given and route, prescriptions, significant lab abnormalities, going to OR and other pertinent info. @ -Discharged. Patient presented to the emergency department for evaluation of shortness of breath. He was sent in by his PCP. Chest x-ray shows no acute process. Laboratory studies obtained. Patient has mild leukocytosis likely related to his recent steroid course. Normal coagulation studies; CMP essentially unremarkable, negative troponin, BNP 67; COVID, influenza, RSV negative. CT chest for PE shows no evidence for acute PE. Patient was provided a dose of IV Solu-Medrol and DuoNeb treatment. Discussed findings of testing. Patient would like to be discharged home. He is going to follow-up closely with his PCP. Strict return precautions discussed. Patient understanding agreeable with plan. Patient stable at time of discharge. Case discussed with Elaine Rosario Undiagnosed new problem with uncertain prognosis? @ -No Drug Therapy requiring intensive monitoring for toxicity (Heparin, Nitro, Insulin, Cardizem)? @ -No Were any procedures done? @ -No Diagnosis/symptom? @ -COPD exacerbation Acute, or Chronic, or Acute on Chronic? @ -acute Uncomplicated (without systemic symptoms) or Complicated (systemic symptoms)? @ -uncomplicated Side effects of treatment? @ -No Exacerbation, Progression, or Severe Exacerbation? @ -No Poses a threat to life or bodily function? How? (Chest pain, [place], [place], pneumonia, PE, COPD, DKA, ARF, appy, cholecystitis, CVA, Diverticulitis, Homicidal, Suicidal, threat to staff... and all critical care pts) @ -No (LayneEmani) - Lab Data Lab Results 09/08/23 09/08/23 09/08/23 Range/Units 15:15 15:15 15:15 WBC 11.1 H (3.8-10.6) k/uL RBC 5.18 (4.30-5.90) m/uL Hgb 16.4 (13.0-17.5) gm/dL Hct 48.5 (39.0-53.0) % MCV 93.6 (80.0-100.0) fL MCH 31.6 (25.0-35.0) pg MCHC 33.7 (31.0-37.0) g/dL RDW 13.1 (11.5-15.5) % Plt Count 329 (150-450) k/uL MPV 7.5 Neutrophils % 78 % Lymphocytes % 15 % Monocytes % 5 % Eosinophils % 0 % Basophils % 0 % Neutrophils # 8.6 H (1.3-7.7) k/uL Lymphocytes # 1.6 (1.0-4.8) k/uL Monocytes # 0.6 (0-1.0) k/uL Eosinophils # 0.0 (0-0.7) k/uL Basophils # 0.0 (0-0.2) k/uL PT 10.1 (10.0-12.5) sec INR 0.9 (<1.2) APTT 26.9 (22.0-30.0) sec Sodium (137-145) mmol/L Potassium (3.5-5.1) mmol/L Chloride (98-107) mmol/L Carbon Dioxide (22-30) mmol/L Anion Gap mmol/L BUN (9-20) mg/dL Creatinine (0.66-1.25) mg/dL Est GFR (CKD-EPI)AfAm (>60 ml/min/1.73 sqM) Est GFR (CKD-EPI)NonAf (>60 ml/min/1.73 sqM) Glucose (74-99) mg/dL Calcium (8.4-10.2) mg/dL Total Bilirubin (0.2-1.3) mg/dL AST (17-59) U/L ALT (4-49) U/L Alkaline Phosphatase (38-126) U/L Troponin I (0.000-0.034) ng/mL NT-Pro-B Natriuret Pep pg/mL Total Protein (6.3-8.2) g/dL Albumin (3.5-5.0) g/dL Influenza Type A (PCR) Not Detected (Not Detectd) Influenza Type B (PCR) Not Detected (Not Detectd) RSV (PCR) Not Detected (Not Detectd) SARS-CoV-2 (PCR) Not Detected (Not Detectd) 09/08/23 09/08/23 Range/Units 15:15 15:15 WBC (3.8-10.6) k/uL RBC (4.30-5.90) m/uL Hgb (13.0-17.5) gm/dL Hct (39.0-53.0) % MCV (80.0-100.0) fL MCH (25.0-35.0) pg MCHC (31.0-37.0) g/dL RDW (11.5-15.5) % Plt Count (150-450) k/uL MPV Neutrophils % % Lymphocytes % % Monocytes % % Eosinophils % % Basophils % % Neutrophils # (1.3-7.7) k/uL Lymphocytes # (1.0-4.8) k/uL Monocytes # (0-1.0) k/uL Eosinophils # (0-0.7) k/uL Basophils # (0-0.2) k/uL PT (10.0-12.5) sec INR (<1.2) APTT (22.0-30.0) sec Sodium 139 (137-145) mmol/L Potassium 3.9 (3.5-5.1) mmol/L Chloride 106 (98-107) mmol/L Carbon Dioxide 27 (22-30) mmol/L Anion Gap 6 mmol/L BUN 31 H (9-20) mg/dL Creatinine 1.23 (0.66-1.25) mg/dL Est GFR (CKD-EPI)AfAm 74 (>60 ml/min/1.73 sqM) Est GFR (CKD-EPI)NonAf 64 (>60 ml/min/1.73 sqM) Glucose 118 H (74-99) mg/dL Calcium 9.1 (8.4-10.2) mg/dL Total Bilirubin 0.9 (0.2-1.3) mg/dL AST 24 (17-59) U/L ALT 38 (4-49) U/L Alkaline Phosphatase 88 (38-126) U/L Troponin I <0.012 (0.000-0.034) ng/mL NT-Pro-B Natriuret Pep 67 pg/mL Total Protein 6.4 (6.3-8.2) g/dL Albumin 4.2 (3.5-5.0) g/dL Influenza Type A (PCR) (Not Detectd) Influenza Type B (PCR) (Not Detectd) RSV (PCR) (Not Detectd) SARS-CoV-2 (PCR) (Not Detectd) Disposition <Jackeline Haley - Last Filed: 09/08/23 14:25> Is patient prescribed a controlled substance at d/c from ED?: No <Emani Tillman - Last Filed: 09/08/23 23:48> Clinical Impression: COPD exacerbation Disposition: HOME SELF-CARE Condition: Stable Instructions (If sedation given, give patient instructions): COPD (Chronic Obstructive Pulmonary Disease) (ED) Additional Instructions: Utilize your breathing treatments and inhalers. Please follow up with your primary care provider. Return to the emergency department for new or worsening symptoms. Prescriptions: predniSONE 50 mg PO DAILY #5 tab Referrals: Ilsa Alonso DO [Primary Care Provider] - 1-2 days
--- NOTE | 2023-09-08 14:54 | XR ---
EXAMINATION TYPE: XR chest 2V DATE OF EXAM: 09/08/2023 COMPARISON: 11/11/2019 TECHNIQUE: PA and lateral views submitted. HISTORY: Difficulty breathing FINDINGS: The lungs are clear and there is no pneumothorax, pleural effusion, or focal pneumonia. Heart size normal and no overt failure. Osseous structures demonstrate hypertrophic and degenerative changes of the spine. Mild hyperinflation correlate for COPD. IMPRESSION: 1. No acute process.
[2023-09-08 15:50] LABS: Basophils % (A) 0 %; Eosinophils % (A) 0 %; HCT 48.5 % (39.0-53.0); HGB 16.4 gm/dL (13.0-17.5); Lymphocytes # (A) 1.6 k/uL (1.0-4.8); Lymphocytes % (A) 15 %; MCH 31.6 pg (25.0-35.0); MCHC 33.7 g/dL (31.0-37.0); MCV 93.6 fL (80.0-100.0); Mean Platelet Volume 7.5; Monocytes # (A) 0.6 k/uL (0-1.0); Monocytes % (A) 5 %; Neutrophils # (A) 8.6 k/uL (1.3-7.7); Neutrophils % (A) 78 %; Platelet Count 329 k/uL (150-450); RBC 5.18 m/uL (4.30-5.90); RDW 13.1 % (11.5-15.5); WBC 11.1 k/uL (3.8-10.6)
[2023-09-08 16:01] LABS: INR 0.9 (<1.2); Prothrombin Time 10.1 sec (10.0-12.5)
[2023-09-08 16:02] LABS: ALT 38 U/L (4-49); AST 24 U/L (17-59); African American GFR (CKD) 74 (>60 ml/min/1.73 sqM); Albumin 4.2 g/dL (3.5-5.0); Alkaline Phosphatase 88 U/L (38-126); Anion Gap 6 mmol/L; Blood Urea Nitrogen 31 mg/dL (9-20); Calcium 9.1 mg/dL (8.4-10.2); Carbon Dioxide 27 mmol/L (22-30); Chloride 106 mmol/L (98-107); Glucose 118 mg/dL (74-99); Non-African American GFR(CKD) 64 (>60 ml/min/1.73 sqM); Partial Thromboplastin Time 26.9 sec (22.0-30.0); Potassium 3.9 mmol/L (3.5-5.1); Sodium 139 mmol/L (137-145); Total Bilirubin 0.9 mg/dL (0.2-1.3); Total Protein 6.4 g/dL (6.3-8.2)
[2023-09-08 16:11] LABS: NT-Pro-B-Type Natriuretic Pept 67 pg/mL
[2023-09-08 16:13] VITALS: RESP 20
[2023-09-08] MEDS: methylPREDNISolone SOD SUCCI 125 MG/2 ML VIAL IV STA (16:45)
[2023-09-08] MEDS: IPRATROPIUM-ALBUTEROL 3 ML NEB INHALATION STA (16:52)
--- NOTE | 2023-09-08 18:30 | CT ---
EXAMINATION TYPE: CT chest angio for PE CT DLP: 668.4 mGycm, Automated exposure control for dose reduction was used. DATE OF EXAM: 09/08/2023 5:50 PM COMPARISON: Chest radiograph from same day. Multiple CTs of the chest with most recent on . 0. CLINICAL INDICATION:Male, 57 years old with history of shortness of breath; shortness of breath TECHNIQUE/CONTRAST: CTA scan of the thorax is performed with IV Contrast, patient injected with 80ml mL of Isovue 370, AL P images are created and reviewed these are created on a separate workstation.. FINDINGS: Pulmonary Artery: There is no evidence for a central filling defect within the pulmonary vasculature to suggest acute pulmonary embolism. Limited evaluation of the segmental and subsegmental branches se condary to bolus timing. The pulmonary artery is of normal size. Lungs/Pleura: No evidence of focal consolidation, pleural effusion or pneumothorax. Mild to moderate paraseptal emphysema changes. Airway: Large airways are patent. Heart: Heart is within normal limits for size. Vasculature: No evidence of aortic aneurysm. Mediastinum: No gross evidence of adenopathy. Musculoskeletal: No acute osseous abnormalities Soft Tissues: Unremarkable. Lower neck: No significant findings. Upper Abdomen: No significant findings. IMPRESSION: 1. No evidence of central pulmonary embolism. Limited evaluation of the segmental and subsegmental br anches. 2. [id number] emphysema
[2023-09-08 19:57] VITALS: BP 164/98; PULSE 88
== END 2023-09-08 19:42 | disposition home or self-care (01) ==
LOC: EC 13:29
DX: J44.1 Chronic obstructive pulmonary disease with (acute) exacerbation (principal); D72.829 Elevated white blood cell count, unspecified; I13.0 Hypertensive heart and chronic kidney disease with heart failure and stage 1 through stage 4 chronic kidney disease, or unspecified chronic kidney disease; I50.9 Heart failure, unspecified; N18.9 Chronic kidney disease, unspecified; E03.9 Hypothyroidism, unspecified; E66.9 Obesity, unspecified; F41.9 Anxiety disorder, unspecified; F12.90 Cannabis use, unspecified, uncomplicated; Z20.822 Contact with and (suspected) exposure to COVID-19; Z79.890 Hormone replacement therapy; Z79.51 Long term (current) use of inhaled steroids; Z79.899 Other long term (current) drug therapy; Z87.891 Personal history of nicotine dependence; Z99.81 Dependence on supplemental oxygen; Z68.39 Body mass index [BMI] 39.0-39.9, adult
CPT/HCPCS: 36415; 94640; 93005; 83880; 80053; 84484; 85025; 85610; 85730; 87636; 71046; 71275; 99285; 96374; J2930; Q9967